=== PATIENT | male | born 1945 | race African-American/Black ===

== ENCOUNTER 2017-03-11 18:36 | Inpatient (IN) | payer MEDICARE, MEDICAID ==
[~2017-03-11] VITALS: Ht 165.1 cm; Wt 90.3 kg
[~2017-03-11 18:36] MED LIST: ALLO100T PO; ASPI-1159 PO; ATOR20TA65 PO; CARV6.2548 PO; COLC0.6T66 PO; DILT60TA35 PO; DOCU-150 PO; FURO-152 PO; P20 PO; WARF4TAB40 PO
[2017-03-11 20:11] LABS: BASOPHILS % 1.3 % (0.0-2.0); EOSINOPHILS % 4.2 % (0.0-5.0); LYMPHOCYTES % 20.8 % (20.0-50.0); MEAN CORPUSCULAR HEMOGLOBIN 23.2 pg (28.0-32.0); MEAN PLATELET VOLUME 7.3 fl (7.4-10.4); MONOCYTES % 14.7 % (2.0-8.0); PLATELET 263 x1000/uL (130-400); RED BLOOD CELL COUNT 2.57 mill/uL (4.7-6.1); RED CELL DISTRIBUTION WIDTH 22.2 % (11.6-14.6)
[2017-03-11 20:21] LABS: HEMATOCRIT. 19.3 % (42.0-52.0)
[2017-03-11 20:23] LABS: CARBON DIOXIDE 29 mEq/L (21-32); CHLORIDE 105 mEq/L (98-107); TROPONIN I < 0.02 ng/mL (0.00-0.04)
[2017-03-11 20:32] LABS: INR 1.4; PARTIAL THROMBOPLASTIN TIME 32.1 sec (24.0-34.0); PROTHROMBIN TIME 14.4 sec
[2017-03-11 21:16] LABS: PLATELET ESTIMATE NORMAL
[2017-03-11 21:52] LABS: CLARITY URINE CLEAR (CLEAR); COLOR URINE YELLOW (YELLOW); KETONES URINE NEGATIVE (NEGATIVE); LEUKOCYTE ESTERASE URINE NEGATIVE (NEGATIVE); NITRITE URINE NEGATIVE (NEGATIVE); OCCULT BLOOD URINE NEGATIVE (NEGATIVE); PROTEIN URINE NEGATIVE (NEGATIVE); SPECIFIC GRAVITY URINE 1.019 (1.005-1.030)
[2017-03-12] MEDS ORDERED: DILTIAZEM HCL 60MG TABLET PO SCH (02:00)
[2017-03-12] MEDS: IPRATROPIUM/ALBUTEROL 0.5-3(2.5)MG/3ML NEB HHN PRN (03:13)
[2017-03-12] MEDS ORDERED: IPRATROPIUM/ALBUTEROL 0.5-3(2.5)MG/3ML NEB HHN SCH (06:00)
[2017-03-12] MEDS: ALLOPURINOL 100 MG TABLET PO SCH ×2 (08:25→16:09)
[2017-03-12] MEDS: FUROSEMIDE 20MG TABLET PO SCH (08:25)
[2017-03-12] MEDS: DILTIAZEM HCL 90MG TABLET PO SCH ×3 (08:26→21:00)
[2017-03-12] MEDS: COLCHICINE 0.6MG TABLET PO SCH (08:26)
[2017-03-12] MEDS: CARVEDILOL 6.25 MG TABLET PO SCH ×2 (08:26→21:40)
[2017-03-12] MEDS: IPRATROPIUM/ALBUTEROL 0.5-3(2.5)MG/3ML NEB HHN SCH ×3 (08:32→20:06)
[2017-03-12] MEDS ORDERED: FUROSEMIDE 20MG TABLET PO NR (09:45)
[2017-03-12] MEDS: GUAIFENESIN-DM 200MG-20MG/10ML UDC PO PRN ×2 (11:09→17:57)
[2017-03-12 16:25] LABS: HEMATOCRIT 24.4 % (42.0-52.0); HEMOGLOBIN 7.6 g/dL (14.0-18.0); MEAN CORPUSCULAR VOLUME 76.9 fL (80.0-94.0); PLATELET 277 x1000/uL (130-400); RED BLOOD CELL COUNT 3.18 mill/uL (4.7-6.1); RED CELL DISTRIBUTION WIDTH 20.5 % (11.6-14.6)
[2017-03-12] MEDS ORDERED: LACTULOSE 20G/30ML UDC PO PRN (21:00)
[2017-03-12] MEDS: ATORVASTATIN CALCIUM 20MG TABLET PO SCH (21:40)
[2017-03-12] MEDS: DOCUSATE SODIUM 250MG CAPSULE PO SCH (21:40)
[2017-03-12 23:28] LABS: BASOPHILS % 0.8 % (0.0-2.0); EOSINOPHILS % 4.4 % (0.0-5.0); HEMATOCRIT. 28.3 % (42.0-52.0); HEMOGLOBIN. 8.9 g/dL (14.0-18.0); LYMPHOCYTES % 13.3 % (20.0-50.0); MEAN CORPUSCULAR HEMOGLOBIN 24.6 pg (28.0-32.0); MEAN CORPUSCULAR VOLUME 78.1 fL (80.0-94.0); MEAN PLATELET VOLUME 8.1 fl (7.4-10.4); MONOCYTES % 14.3 % (2.0-8.0); NEUTROPHILS % 67.2 % (40.0-76.0); PLATELET 261 x1000/uL (130-400); RED BLOOD CELL COUNT 3.62 mill/uL (4.7-6.1)
[2017-03-13] MEDS: ACETAMINOPHEN 325MG TABLET PO PRN (00:46)
[2017-03-13] MEDS: IPRATROPIUM/ALBUTEROL 0.5-3(2.5)MG/3ML NEB HHN SCH ×4 (01:28→20:45)
[2017-03-13] MEDS: DILTIAZEM HCL 90MG TABLET PO SCH ×4 (02:42→21:00)
[2017-03-13 06:54] LABS: BASOPHILS % 0.7 % (0.0-2.0); EOSINOPHILS % 3.9 % (0.0-5.0); HEMATOCRIT. 26.3 % (42.0-52.0); HEMOGLOBIN. 8.4 g/dL (14.0-18.0); LYMPHOCYTES % 15.4 % (20.0-50.0); MEAN CORPUSCULAR HEMOGLOBIN 24.8 pg (28.0-32.0); MEAN CORPUSCULAR VOLUME 77.4 fL (80.0-94.0); MEAN PLATELET VOLUME 8.4 fl (7.4-10.4); MONOCYTES % 13.6 % (2.0-8.0); NEUTROPHILS % 66.4 % (40.0-76.0); PLATELET 254 x1000/uL (130-400); RED BLOOD CELL COUNT 3.39 mill/uL (4.7-6.1); RED CELL DISTRIBUTION WIDTH 20.5 % (11.6-14.6)
[2017-03-13 06:59] LABS: CARBON DIOXIDE 27 mEq/L (21-32); CHLORIDE 106 mEq/L (98-107)
[2017-03-13] MEDS: COLCHICINE 0.6MG TABLET PO SCH (08:54)
[2017-03-13] MEDS: ALLOPURINOL 100 MG TABLET PO SCH ×2 (08:54→16:36)
[2017-03-13] MEDS: FUROSEMIDE 20MG TABLET PO SCH (08:54)
[2017-03-13] MEDS: CARVEDILOL 6.25 MG TABLET PO SCH ×2 (08:54→21:28)
[2017-03-13 08:55] LABS: INR 1.3; PROTHROMBIN TIME 13.4 sec
[2017-03-13] MEDS: IPRATROPIUM/ALBUTEROL 0.5-3(2.5)MG/3ML NEB HHN PRN (17:25)
[2017-03-13] MEDS ORDERED: SORBITOL 70% SOLN 30ML PO NR (21:00)
[2017-03-13] MEDS: ATORVASTATIN CALCIUM 20MG TABLET PO SCH (21:28)
[2017-03-13] MEDS: DOCUSATE SODIUM 250MG CAPSULE PO SCH (21:28)
[2017-03-14] MEDS: IPRATROPIUM/ALBUTEROL 0.5-3(2.5)MG/3ML NEB HHN SCH ×4 (02:12→20:19)
[2017-03-14] MEDS: DILTIAZEM HCL 90MG TABLET PO SCH ×4 (03:05→20:45)
[2017-03-14 05:53] LABS: CHLORIDE 111 mEq/L (98-107)
[2017-03-14 05:57] LABS: CARBON DIOXIDE 27 mEq/L (21-32)
[2017-03-14] MEDS ORDERED: SORBITOL 70% SOLN 30ML PO NR (06:00)
[2017-03-14 07:21] LABS: EOSINOPHILS % 5.2 % (0.0-5.0); LYMPHOCYTES % 10.8 % (20.0-50.0); MEAN CORPUSCULAR HEMOGLOBIN 24.7 pg (28.0-32.0); MEAN CORPUSCULAR VOLUME 79.8 fL (80.0-94.0); MEAN PLATELET VOLUME 8.4 fl (7.4-10.4); MONOCYTES % 13.9 % (2.0-8.0); NEUTROPHILS % 69.1 % (40.0-76.0); PLATELET 257 x1000/uL (130-400); RED BLOOD CELL COUNT 3.64 mill/uL (4.7-6.1); RED CELL DISTRIBUTION WIDTH 20.6 % (11.6-14.6)
[2017-03-14] MEDS ORDERED: NA PHOS,M-B/NA PHOS,DI-BA ENEMA 118ML PR NR (08:00)
[2017-03-14] MEDS: CARVEDILOL 6.25 MG TABLET PO SCH ×2 (09:28→20:45)
[2017-03-14] MEDS: ALLOPURINOL 100 MG TABLET PO SCH ×2 (09:28→17:33)
[2017-03-14] MEDS: COLCHICINE 0.6MG TABLET PO SCH (09:28)
[2017-03-14] MEDS: FUROSEMIDE 20MG TABLET PO SCH (09:28)
[2017-03-14 09:47] LABS: BG BASE EXCESS -0.5 mmol/L (-2.0-2.0); BG CARBOXYHEMOGLOBIN 1.3 % (0.5-1.5); BG DEOXYHEMOGLOBIN 20.6 % (0.0-5.0); BG FRACTION INSPIRED OXYGEN 21; BG HCO3 ACT 24.4 mmol/L (22.0-26.0); BG METHEMOGLOBIN 0.3 % (0.0-1.5); BG OXYGEN SATURATION 79.1 % (92.0-98.5); BG OXYHEMOGLOBIN 77.8 % (94.0-97.0); BG PCO2 40.8 mmHg (35.0-45.0); BG PH 7.394 (7.350-7.450); BG PO2 45.5 mmHg (75.0-100.0); BG SAMPLE SITE RIGHT BRACHIAL; BG TOTAL HEMOGLOBIN 10.7 g/dL (12.0-18.0); BG VENT MODE ROOM AIR
[2017-03-14] MEDS ORDERED: LIDOCAINE HCL 1% 20ML VIAL (Pyxis) INJ ONE (10:26)
[2017-03-14] MEDS ORDERED: PROPOFOL 200MG/20ML VIAL IV ONE ×2 (10:26→10:55)
[2017-03-14] MEDS: IPRATROPIUM/ALBUTEROL 0.5-3(2.5)MG/3ML NEB HHN PRN (18:51)
[2017-03-14] MEDS: ATORVASTATIN CALCIUM 20MG TABLET PO SCH (20:45)
[2017-03-14] MEDS: DOCUSATE SODIUM 250MG CAPSULE PO SCH (20:45)
[2017-03-15] MEDS: ACETAMINOPHEN 325MG TABLET PO PRN (00:22)
[2017-03-15] MEDS: IPRATROPIUM/ALBUTEROL 0.5-3(2.5)MG/3ML NEB HHN SCH ×4 (01:55→20:13)
[2017-03-15] MEDS: DILTIAZEM HCL 90MG TABLET PO SCH ×4 (03:23→21:08)
[2017-03-15 06:29] LABS: BASOPHILS % 0.9 % (0.0-2.0); HEMATOCRIT. 26.7 % (42.0-52.0); HEMOGLOBIN. 8.5 g/dL (14.0-18.0); LYMPHOCYTES % 14.3 % (20.0-50.0); MEAN CORPUSCULAR HEMOGLOBIN 24.9 pg (28.0-32.0); MEAN CORPUSCULAR VOLUME 78.2 fL (80.0-94.0); MEAN PLATELET VOLUME 7.5 fl (7.4-10.4); MONOCYTES % 14.3 % (2.0-8.0); NEUTROPHILS % 63.5 % (40.0-76.0); PLATELET 226 x1000/uL (130-400); RED BLOOD CELL COUNT 3.42 mill/uL (4.7-6.1); RED CELL DISTRIBUTION WIDTH 20.5 % (11.6-14.6)
[2017-03-15] MEDS: IPRATROPIUM/ALBUTEROL 0.5-3(2.5)MG/3ML NEB HHN PRN (06:42)
[2017-03-15 06:46] LABS: CARBON DIOXIDE 27 mEq/L (21-32); CHLORIDE 112 mEq/L (98-107)
[2017-03-15] MEDS: COLCHICINE 0.6MG TABLET PO SCH (09:02)
[2017-03-15] MEDS: CARVEDILOL 6.25 MG TABLET PO SCH ×2 (09:02→21:05)
[2017-03-15] MEDS: FUROSEMIDE 20MG TABLET PO SCH (09:02)
[2017-03-15] MEDS: ALLOPURINOL 100 MG TABLET PO SCH ×2 (09:02→17:19)
[2017-03-15] MEDS: ENOXAPARIN 80MG/0.8ML SYR SUBCUT SCH ×2 (12:42→21:09)
[2017-03-15] MEDS ORDERED: WARFARIN SODIUM 4MG TABLET PO SCH (18:00)
[2017-03-15] MEDS: DOCUSATE SODIUM 250MG CAPSULE PO SCH (21:04)
[2017-03-15] MEDS: ATORVASTATIN CALCIUM 20MG TABLET PO SCH (21:04)
[2017-03-16] MEDS: IPRATROPIUM/ALBUTEROL 0.5-3(2.5)MG/3ML NEB HHN SCH ×4 (02:11→20:19)
[2017-03-16] MEDS: DILTIAZEM HCL 90MG TABLET PO SCH ×4 (03:22→20:46)
[2017-03-16] MEDS: GUAIFENESIN-DM 200MG-20MG/10ML UDC PO PRN (06:13)
[2017-03-16 06:41] LABS: INR 1.3; PROTHROMBIN TIME 13.2 sec
[2017-03-16 07:03] LABS: BASOPHILS % 1.1 % (0.0-2.0); HEMATOCRIT. 27.8 % (42.0-52.0); HEMOGLOBIN. 8.6 g/dL (14.0-18.0); LYMPHOCYTES % 12.8 % (20.0-50.0); MEAN CORPUSCULAR HEMOGLOBIN 24.5 pg (28.0-32.0); MEAN CORPUSCULAR VOLUME 78.7 fL (80.0-94.0); MEAN PLATELET VOLUME 8.3 fl (7.4-10.4); MONOCYTES % 14.5 % (2.0-8.0); NEUTROPHILS % 64.6 % (40.0-76.0); PLATELET 247 x1000/uL (130-400); RED BLOOD CELL COUNT 3.53 mill/uL (4.7-6.1); RED CELL DISTRIBUTION WIDTH 20.9 % (11.6-14.6)
[2017-03-16 07:05] LABS: CHLORIDE 110 mEq/L (98-107)
[2017-03-16 07:18] LABS: CARBON DIOXIDE 26 mEq/L (21-32)
[2017-03-16] MEDS: ALLOPURINOL 100 MG TABLET PO SCH ×2 (08:39→17:56)
[2017-03-16] MEDS: CARVEDILOL 6.25 MG TABLET PO SCH ×2 (08:40→20:46)
[2017-03-16] MEDS: FUROSEMIDE 20MG TABLET PO SCH (08:41)
[2017-03-16] MEDS: COLCHICINE 0.6MG TABLET PO SCH (08:41)
[2017-03-16] MEDS: ENOXAPARIN 80MG/0.8ML SYR SUBCUT SCH ×2 (08:42→20:47)
[2017-03-16] MEDS ORDERED: WARFARIN SODIUM 4MG TABLET PO SCH (18:00)
[2017-03-16] MEDS: DOCUSATE SODIUM 250MG CAPSULE PO SCH (20:46)
[2017-03-16] MEDS: ATORVASTATIN CALCIUM 20MG TABLET PO SCH (20:46)
[2017-03-17] MEDS: IPRATROPIUM/ALBUTEROL 0.5-3(2.5)MG/3ML NEB HHN SCH ×3 (00:21→14:48)
[2017-03-17] MEDS: DILTIAZEM HCL 90MG TABLET PO SCH ×4 (03:00→15:16)
[2017-03-17] MEDS: IPRATROPIUM/ALBUTEROL 0.5-3(2.5)MG/3ML NEB HHN PRN (04:04)
[2017-03-17] MEDS: ACETAMINOPHEN 325MG TABLET PO PRN (04:13)
[2017-03-17 06:39] LABS: INR 1.3; PROTHROMBIN TIME 13.2 sec
[2017-03-17] MEDS: FUROSEMIDE 20MG TABLET PO SCH (08:28)
[2017-03-17] MEDS: COLCHICINE 0.6MG TABLET PO SCH (08:28)
[2017-03-17] MEDS: ALLOPURINOL 100 MG TABLET PO SCH ×2 (08:29→15:15)
[2017-03-17] MEDS: CARVEDILOL 6.25 MG TABLET PO SCH (08:29)
[2017-03-17] MEDS: ENOXAPARIN 80MG/0.8ML SYR SUBCUT SCH (08:30)
[2017-03-17] MEDS ORDERED: WARFARIN SODIUM 5MG TABLET PO SCH (14:58)
[2017-03-17 16:08] VITALS: BP 116/66
== END 2017-03-17 17:20 | DRG 291 ==
LOC: ER 18:53 → 6WST 22:38 → EDBEDREQTM 22:41 → EDBEDREQ 22:41 → ENRESERV 22:49
PROVIDERS: ADMIT Internal Medicine; ATTEND Internal Medicine
PROC: 30233N1 Transfusion of Nonautologous Red Blood Cells into Peripheral Vein, Percutaneous Approach (ICD-10-PCS; 2017-03-12)
PROC: 0DBK8ZX Excision of Ascending Colon, Via Natural or Artificial Opening Endoscopic, Diagnostic (ICD-10-PCS; 2017-03-14)
PROC: 0DBN8ZZ Excision of Sigmoid Colon, Via Natural or Artificial Opening Endoscopic (ICD-10-PCS; 2017-03-14)
PROC: 0DB68ZX Excision of Stomach, Via Natural or Artificial Opening Endoscopic, Diagnostic (ICD-10-PCS; principal; 2017-03-14 10:00)
DX: I50.23 Acute on chronic systolic (congestive) heart failure (principal); J96.21 Acute and chronic respiratory failure with hypoxia; I42.9 Cardiomyopathy, unspecified; J44.1 Chronic obstructive pulmonary disease with (acute) exacerbation; D62 Acute posthemorrhagic anemia; D50.9 Iron deficiency anemia, unspecified; I48.91 Unspecified atrial fibrillation; D12.2 Benign neoplasm of ascending colon; D12.5 Benign neoplasm of sigmoid colon; E66.9 Obesity, unspecified; I11.0 Hypertensive heart disease with heart failure; I27.2 Other secondary pulmonary hypertension; I48.2 Chronic atrial fibrillation; K29.60 Other gastritis without bleeding; K43.9 Ventral hernia without obstruction or gangrene; K44.9 Diaphragmatic hernia without obstruction or gangrene; K57.30 Diverticulosis of large intestine without perforation or abscess without bleeding; K64.8 Other hemorrhoids; M19.90 Unspecified osteoarthritis, unspecified site; M54.5 Low back pain; G89.29 Other chronic pain; Z79.82 Long term (current) use of aspirin; Z88.0 Allergy status to penicillin; Z79.01 Long term (current) use of anticoagulants; Z82.49 Family history of ischemic heart disease and other diseases of the circulatory system; Z95.2 Presence of prosthetic heart valve; Z99.81 Dependence on supplemental oxygen; Z79.899 Other long term (current) drug therapy; Z68.33 Body mass index [BMI] 33.0-33.9, adult
CPT/HCPCS: 36415; 36430; 36600; 71010; 74000; 80048; 80053; 81003; 82270; 82375; 82805; 83735; 83880; 84484; 84550; 85025; 85027; 85610; 85730; 86850; 86900; 86920; 88305; 88312; 88313; 93005; 93306; 93970; 94640; 99285; J1650; J2704; J3490; J7050; J7620; P9016

== ENCOUNTER 2018-01-13 22:54 | Inpatient (IN) | payer MEDICARE, MEDICAID ==
[~2018-01-13] VITALS: Ht 165.1 cm; Wt 99.1 kg
[2018-01-13] MEDS ORDERED: ALBUTEROL (0.083%) 2.5MG/3ML NEB HHN STA (23:24)
[2018-01-13] MEDS ORDERED: FUROSEMIDE 40MG/4ML VIAL IV STA (23:24)
[2018-01-13] MEDS ORDERED: NITROGLYCERIN OINT 1GM/INCH UDPKT TD STA (23:24)
[2018-01-13] MEDS ORDERED: METHYLPREDNISOLONE SOD SUCC 125 MG/2 ML VIAL IV STA (23:24)
[2018-01-13] MEDS ORDERED: IPRATROPIUM BROMIDE (0.02%) 0.5MG/2.5ML NEB HHN STA (23:24)
[2018-01-13 23:57] LABS: BASOPHILS % 0.3 % (0.0-2.0); HEMATOCRIT. 29.7 % (42.0-52.0); LYMPHOCYTES % 7.5 % (20.0-50.0); MEAN CORPUSCULAR HEMOGLOBIN 24.6 pg (28.0-32.0); MEAN CORPUSCULAR VOLUME 80.8 fL (80.0-94.0); MEAN PLATELET VOLUME 8.2 fl (7.4-10.4); MONOCYTES % 10.2 % (2.0-8.0); PLATELET 251 x1000/uL (130-400); RED BLOOD CELL COUNT 3.68 mill/uL (4.7-6.1); RED CELL DISTRIBUTION WIDTH 19.5 % (11.6-14.6)
[2018-01-14 00:02] LABS: CHLORIDE 107 mEq/L (98-107)
[2018-01-14 00:04] LABS: INR 1.6
[2018-01-14 08:00] VITALS: BP 165/71
[2018-01-14] MEDS ORDERED: WARF3TAB28 MT (08:48)
[2018-01-14] MEDS ORDERED: PROT40 MT (08:48)
[2018-01-14] MEDS ORDERED: LATA2.5D2 EACHEYE (08:48)
[2018-01-14] MEDS ORDERED: POTA10CA42 PO (08:48)
[2018-01-14] MEDS ORDERED: FURO-151 MT (08:48)
[2018-01-14] MEDS ORDERED: MAGN296S49 PO (08:48)
[2018-01-14] MEDS ORDERED: ATOR10TA69 MT (08:48)
[2018-01-14] MEDS ORDERED: MAGNESIUM CITRATE 300ML SOLUTION PO PRN (09:00)
[2018-01-14 09:04] VITALS: BP 165/71
[2018-01-14] MEDS: CARVEDILOL 6.25 MG TABLET PO SCH ×2 (09:41→21:47)
[2018-01-14] MEDS: ALLOPURINOL 100 MG TABLET PO SCH ×2 (09:41→17:07)
[2018-01-14] MEDS: PANTOPRAZOLE 40MG DR TABLET PO SCH (09:42)
[2018-01-14] MEDS: DOCUSATE SODIUM 100MG CAPSULE PO SCH (09:42)
[2018-01-14] MEDS: PREDNISONE 20MG TABLET PO SCH (09:42)
[2018-01-14] MEDS ORDERED: FUROSEMIDE 40MG/4ML VIAL IVP SCH (10:00)
[2018-01-14 12:00] VITALS: BP 130/81
[2018-01-14] MEDS: DILTIAZEM HCL 90MG TABLET PO SCH ×3 (12:40→23:48)
[2018-01-14] MEDS: IPRATROPIUM/ALBUTEROL 0.5-3(2.5)MG/3ML NEB HHN SCH ×2 (13:56→20:39)
[2018-01-14 16:00] VITALS: BP 122/78
[2018-01-14] MEDS ORDERED: POTASSIUM CHLORIDE 8 MEQ TABLET.SA PO SCH (17:00)
[2018-01-14] MEDS: WARFARIN SODIUM 5MG TABLET PO SCH (17:07)
[2018-01-14 20:00] VITALS: BP 127/67
[2018-01-14 20:18] LABS: CHLORIDE 104 mEq/L (98-107)
[2018-01-14] MEDS: ATORVASTATIN CALCIUM 10MG TABLET PO SCH (21:47)
[2018-01-14] MEDS: LATANOPROST 0.005% OPHTH DROPS 2.5ML EACHEYE SCH (21:47)
[2018-01-14 23:21] LABS: CLARITY URINE CLEAR (CLEAR); COLOR URINE YELLOW (YELLOW); KETONES URINE NEGATIVE (NEGATIVE); LEUKOCYTE ESTERASE URINE NEGATIVE (NEGATIVE); NITRITE URINE NEGATIVE (NEGATIVE); OCCULT BLOOD URINE TRACE (NEGATIVE); PROTEIN URINE NEGATIVE (NEGATIVE); SPECIFIC GRAVITY URINE 1.021 (1.005-1.030); UROBILINOGEN URINE 0.2 E.U./dL (0.2-1.0)
[2018-01-15] VITALS: BP 123/67
[2018-01-15] MEDS: IPRATROPIUM/ALBUTEROL 0.5-3(2.5)MG/3ML NEB HHN SCH ×5 (02:15→20:05)
[2018-01-15 04:00] VITALS: BP 115/65
[2018-01-15] MEDS: DILTIAZEM HCL 90MG TABLET PO SCH ×3 (05:43→17:21)
[2018-01-15] MEDS: PANTOPRAZOLE 40MG DR TABLET PO SCH (05:45)
[2018-01-15 07:02] LABS: HEMATOCRIT. 27.6 % (42.0-52.0); HEMOGLOBIN. 8.4 g/dL (14.0-18.0); MEAN CORPUSCULAR HEMOGLOBIN 24.3 pg (28.0-32.0); MEAN CORPUSCULAR VOLUME 80.3 fL (80.0-94.0); MEAN PLATELET VOLUME 8.9 fl (7.4-10.4); PLATELET 246 x1000/uL (130-400); RED BLOOD CELL COUNT 3.44 mill/uL (4.7-6.1); RED CELL DISTRIBUTION WIDTH 19.9 % (11.6-14.6)
[2018-01-15 07:19] LABS: INR 1.9; PROTHROMBIN TIME 19.4 sec (9.4-11.6)
[2018-01-15 07:32] LABS: CHLORIDE 106 mEq/L (98-107)
[2018-01-15 08:00] VITALS: BP 134/82
[2018-01-15] MEDS: ALLOPURINOL 100 MG TABLET PO SCH ×2 (08:31→17:21)
[2018-01-15] MEDS: PREDNISONE 20MG TABLET PO SCH (08:31)
[2018-01-15] MEDS: DOCUSATE SODIUM 100MG CAPSULE PO SCH (08:32)
[2018-01-15] MEDS: CARVEDILOL 6.25 MG TABLET PO SCH ×2 (08:32→21:01)
[2018-01-15] MEDS ORDERED: FUROSEMIDE 40MG/4ML VIAL IVP SCH (10:00)
[2018-01-15 10:32] LABS: PLATELET ESTIMATE NORMAL
[2018-01-15 12:00] VITALS: BP 116/61
[2018-01-15] MEDS ORDERED: IPRATROPIUM/ALBUTEROL 0.5-3(2.5)MG/3ML NEB HHN PRN (15:45)
[2018-01-15 16:00] VITALS: BP 126/76
[2018-01-15] MEDS: WARFARIN SODIUM 5MG TABLET PO SCH (17:21)
[2018-01-15 20:00] VITALS: BP 117/61
[2018-01-15] MEDS: ATORVASTATIN CALCIUM 10MG TABLET PO SCH (21:00)
[2018-01-15] MEDS: LATANOPROST 0.005% OPHTH DROPS 2.5ML EACHEYE SCH (21:01)
[2018-01-16] VITALS: BP 127/79
[2018-01-16] MEDS: DILTIAZEM HCL 90MG TABLET PO SCH ×5 (00:46→22:40)
[2018-01-16 04:00] VITALS: BP 122/65
[2018-01-16] MEDS: IPRATROPIUM/ALBUTEROL 0.5-3(2.5)MG/3ML NEB HHN SCH ×6 (04:00→21:41)
[2018-01-16] MEDS: PANTOPRAZOLE 40MG DR TABLET PO SCH (06:01)
[2018-01-16 06:35] LABS: INR 2.3; PROTHROMBIN TIME 24.1 sec (9.4-11.6)
[2018-01-16 06:41] LABS: BASOPHILS % 0.2 % (0.0-2.0); EOSINOPHILS % 0.1 % (0.0-5.0); HEMATOCRIT. 27.2 % (42.0-52.0); HEMOGLOBIN. 8.4 g/dL (14.0-18.0); LYMPHOCYTES % 8.6 % (20.0-50.0); MEAN CORPUSCULAR HEMOGLOBIN 24.6 pg (28.0-32.0); MEAN CORPUSCULAR VOLUME 79.8 fL (80.0-94.0); MEAN PLATELET VOLUME 8.6 fl (7.4-10.4); NEUTROPHILS % 80.1 % (40.0-76.0); PLATELET 239 x1000/uL (130-400); RED BLOOD CELL COUNT 3.41 mill/uL (4.7-6.1)
[2018-01-16] MEDS: PREDNISONE 10MG TABLET PO SCH (06:51)
[2018-01-16 07:07] LABS: CHLORIDE 106 mEq/L (98-107)
[2018-01-16] MEDS ORDERED: ACETAMINOPHEN 325MG TABLET PO PRN (07:45)
[2018-01-16 08:00] VITALS: BP 117/58
[2018-01-16] MEDS ORDERED: FUROSEMIDE 40MG/4ML VIAL IVP SCH (08:00)
[2018-01-16 08:23] LABS: BG CARBOXYHEMOGLOBIN 1.3 % (0.5-1.5); BG FRACTION INSPIRED OXYGEN 21; BG HCO3 ACT 31.3 mmol/L (22.0-26.0); BG METHEMOGLOBIN 0.3 % (0.0-1.5); BG OXYHEMOGLOBIN 95.4 % (94.0-97.0); BG PH 7.365 (7.350-7.450); BG PO2 89.3 mmHg (75.0-100.0); BG SAMPLE SITE LEFT BRACHIAL; BG TOTAL HEMOGLOBIN 9.6 g/dL (12.0-18.0); BG VENT MODE ROOM AIR
[2018-01-16] MEDS: DOCUSATE SODIUM 100MG CAPSULE PO SCH (08:28)
[2018-01-16] MEDS: ALLOPURINOL 100 MG TABLET PO SCH ×2 (08:28→17:26)
[2018-01-16] MEDS: CARVEDILOL 6.25 MG TABLET PO SCH ×2 (08:28→22:39)
[2018-01-16] MEDS: FUROSEMIDE 40MG/4ML VIAL IVP SCH ×2 (08:28→17:27)
[2018-01-16 12:00] VITALS: BP 112/65
[2018-01-16] MEDS: METOLAZONE 2.5MG TABLET PO SCH ×2 (12:04→17:26)
[2018-01-16] MEDS: WARFARIN SODIUM 5MG TABLET PO SCH (17:26)
[2018-01-16 20:00] VITALS: BP 185/87
[2018-01-16] MEDS: LATANOPROST 0.005% OPHTH DROPS 2.5ML EACHEYE SCH (22:38)
[2018-01-16] MEDS: ATORVASTATIN CALCIUM 10MG TABLET PO SCH (22:39)
[2018-01-17] MEDS: IPRATROPIUM/ALBUTEROL 0.5-3(2.5)MG/3ML NEB HHN SCH ×7 (00:50→20:28)
[2018-01-17 04:00] VITALS: BP 114/62
[2018-01-17] MEDS: PANTOPRAZOLE 40MG DR TABLET PO SCH (05:56)
[2018-01-17] MEDS: DILTIAZEM HCL 90MG TABLET PO SCH ×3 (05:57→17:56)
[2018-01-17 07:31] LABS: INR 2.7; PROTHROMBIN TIME 28.5 sec (9.4-11.6)
[2018-01-17 07:39] LABS: BASOPHILS % 0.1 % (0.0-2.0); EOSINOPHILS % 0.8 % (0.0-5.0); HEMATOCRIT. 28.3 % (42.0-52.0); HEMOGLOBIN. 8.7 g/dL (14.0-18.0); LYMPHOCYTES % 14.4 % (20.0-50.0); MEAN CORPUSCULAR HEMOGLOBIN 24.6 pg (28.0-32.0); MEAN CORPUSCULAR VOLUME 79.8 fL (80.0-94.0); MONOCYTES % 14.6 % (2.0-8.0); NEUTROPHILS % 70.1 % (40.0-76.0); PLATELET 239 x1000/uL (130-400); RED BLOOD CELL COUNT 3.55 mill/uL (4.7-6.1); RED CELL DISTRIBUTION WIDTH 19.7 % (11.6-14.6)
[2018-01-17 08:00] VITALS: BP 118/76
[2018-01-17 08:14] LABS: CHLORIDE 101 mEq/L (98-107)
[2018-01-17] MEDS: ALLOPURINOL 100 MG TABLET PO SCH ×2 (08:41→17:55)
[2018-01-17] MEDS: FUROSEMIDE 40MG/4ML VIAL IVP SCH ×2 (08:41→17:55)
[2018-01-17] MEDS: METOLAZONE 2.5MG TABLET PO SCH ×2 (08:41→17:56)
[2018-01-17] MEDS: DOCUSATE SODIUM 100MG CAPSULE PO SCH (08:41)
[2018-01-17] MEDS: PREDNISONE 10MG TABLET PO SCH (08:41)
[2018-01-17] MEDS: CARVEDILOL 6.25 MG TABLET PO SCH ×2 (08:42→20:58)
[2018-01-17 12:00] VITALS: BP 119/66
[2018-01-17 16:00] VITALS: BP 119/75
[2018-01-17] MEDS: WARFARIN SODIUM 5MG TABLET PO SCH (17:55)
[2018-01-17 20:00] VITALS: BP 121/68
[2018-01-17] MEDS: ATORVASTATIN CALCIUM 10MG TABLET PO SCH (20:58)
[2018-01-17] MEDS: LATANOPROST 0.005% OPHTH DROPS 2.5ML EACHEYE SCH (20:59)
[2018-01-17] MEDS: GUAIFENESIN-DM 200MG-20MG/10ML UDC PO PRN (20:59)
[2018-01-18] VITALS: BP 114/64
[2018-01-18] MEDS: IPRATROPIUM/ALBUTEROL 0.5-3(2.5)MG/3ML NEB HHN SCH ×5 (00:11→20:57)
[2018-01-18] MEDS: DILTIAZEM HCL 90MG TABLET PO SCH ×4 (00:18→19:02)
[2018-01-18 04:00] VITALS: BP_SYST 113; BP_SYST 117; BP_DIAS 69; BP_DIAS 75
[2018-01-18] MEDS: METOLAZONE 2.5MG TABLET PO SCH ×2 (06:18→17:15)
[2018-01-18] MEDS: FUROSEMIDE 40MG/4ML VIAL IVP SCH (06:18)
[2018-01-18] MEDS: PANTOPRAZOLE 40MG DR TABLET PO SCH (06:18)
[2018-01-18] MEDS: PREDNISONE 10MG TABLET PO SCH (06:19)
[2018-01-18 07:08] LABS: INR 3.5; PROTHROMBIN TIME 36.8 sec (9.4-11.6)
[2018-01-18 07:12] LABS: BASOPHILS % 0.2 % (0.0-2.0); EOSINOPHILS % 1.2 % (0.0-5.0); HEMATOCRIT. 27.5 % (42.0-52.0); HEMOGLOBIN. 8.6 g/dL (14.0-18.0); LYMPHOCYTES % 12.8 % (20.0-50.0); MEAN CORPUSCULAR HEMOGLOBIN 24.7 pg (28.0-32.0); MEAN CORPUSCULAR VOLUME 79.2 fL (80.0-94.0); MEAN PLATELET VOLUME 9.3 fl (7.4-10.4); MONOCYTES % 13.9 % (2.0-8.0); NEUTROPHILS % 71.9 % (40.0-76.0); PLATELET 235 x1000/uL (130-400); RED BLOOD CELL COUNT 3.48 mill/uL (4.7-6.1); RED CELL DISTRIBUTION WIDTH 19.9 % (11.6-14.6)
[2018-01-18 07:45] LABS: CHLORIDE 98 mEq/L (98-107)
[2018-01-18 08:00] VITALS: BP 117/72
[2018-01-18] MEDS: ALLOPURINOL 100 MG TABLET PO SCH ×2 (08:51→17:00)
[2018-01-18] MEDS: DOCUSATE SODIUM 100MG CAPSULE PO SCH (08:51)
[2018-01-18] MEDS: CARVEDILOL 6.25 MG TABLET PO SCH ×2 (08:52→21:26)
[2018-01-18 12:00] VITALS: BP 112/73
[2018-01-18 16:00] VITALS: BP 126/77
[2018-01-18 20:00] VITALS: BP 116/57
[2018-01-18] MEDS: GUAIFENESIN-DM 200MG-20MG/10ML UDC PO PRN (21:25)
[2018-01-18] MEDS: LATANOPROST 0.005% OPHTH DROPS 2.5ML EACHEYE SCH (21:26)
[2018-01-18] MEDS: ATORVASTATIN CALCIUM 10MG TABLET PO SCH (21:26)
[2018-01-19] VITALS: BP 118/67
[2018-01-19] MEDS: DILTIAZEM HCL 90MG TABLET PO SCH ×4 (00:01→17:15)
[2018-01-19] MEDS: IPRATROPIUM/ALBUTEROL 0.5-3(2.5)MG/3ML NEB HHN SCH ×5 (00:56→17:12)
[2018-01-19 04:00] VITALS: BP 115/55
[2018-01-19] MEDS: PREDNISONE 10MG TABLET PO SCH (06:18)
[2018-01-19] MEDS: PANTOPRAZOLE 40MG DR TABLET PO SCH (06:18)
[2018-01-19 06:50] LABS: INR 3.4; PROTHROMBIN TIME 35.8 sec (9.4-11.6)
[2018-01-19 08:00] VITALS: BP 116/67
[2018-01-19] MEDS: ALLOPURINOL 100 MG TABLET PO SCH ×2 (08:50→17:12)
[2018-01-19] MEDS: DOCUSATE SODIUM 100MG CAPSULE PO SCH (08:50)
[2018-01-19] MEDS: CARVEDILOL 6.25 MG TABLET PO SCH (08:50)
[2018-01-19 10:21] LABS: BASOPHILS % 0.2 % (0.0-2.0); EOSINOPHILS % 1.8 % (0.0-5.0); HEMATOCRIT. 27.7 % (42.0-52.0); HEMOGLOBIN. 8.5 g/dL (14.0-18.0); LYMPHOCYTES % 11.5 % (20.0-50.0); MEAN CORPUSCULAR HEMOGLOBIN 24.4 pg (28.0-32.0); MEAN CORPUSCULAR VOLUME 79.3 fL (80.0-94.0); MEAN PLATELET VOLUME 9.5 fl (7.4-10.4); MONOCYTES % 11.6 % (2.0-8.0); NEUTROPHILS % 74.9 % (40.0-76.0); PLATELET 236 x1000/uL (130-400); RED CELL DISTRIBUTION WIDTH 19.5 % (11.6-14.6)
[2018-01-19 10:40] LABS: CHLORIDE 98 mEq/L (98-107)
[2018-01-19 12:00] VITALS: BP 128/71
[2018-01-19 13:31] LABS: INR 3.6
[2018-01-19 16:00] VITALS: BP 130/65
[2018-01-19 16:39] VITALS: BP 130/65
[2018-01-19] MEDS ORDERED: WARFARIN SODIUM 3MG TABLET PO SCH (18:00)
[2018-01-20] MEDS ORDERED: FAMOTIDINE 20MG TABLET PO SCH (09:00)
== END 2018-01-19 18:05 | DRG 291 ==
LOC: ER 23:20 → 5WST 01-14 00:38 → EDBEDREQ 01-14 00:49 → ENRESERV 01-14 07:04
PROVIDERS: ADMIT Internal Medicine; ATTEND Internal Medicine
DX: I13.0 Hypertensive heart and chronic kidney disease with heart failure and stage 1 through stage 4 chronic kidney disease, or unspecified chronic kidney disease (principal); I50.23 Acute on chronic systolic (congestive) heart failure; J96.20 Acute and chronic respiratory failure, unspecified whether with hypoxia or hypercapnia; N17.9 Acute kidney failure, unspecified; J84.9 Interstitial pulmonary disease, unspecified; J44.1 Chronic obstructive pulmonary disease with (acute) exacerbation; E87.5 Hyperkalemia; I48.0 Paroxysmal atrial fibrillation; Z95.2 Presence of prosthetic heart valve; E66.9 Obesity, unspecified; N18.9 Chronic kidney disease, unspecified; K43.9 Ventral hernia without obstruction or gangrene; D64.9 Anemia, unspecified; D72.829 Elevated white blood cell count, unspecified; I25.10 Atherosclerotic heart disease of native coronary artery without angina pectoris; N28.1 Cyst of kidney, acquired; Z87.891 Personal history of nicotine dependence; Z95.1 Presence of aortocoronary bypass graft; Z99.81 Dependence on supplemental oxygen; Z88.0 Allergy status to penicillin; Z79.899 Other long term (current) drug therapy; Z79.01 Long term (current) use of anticoagulants; Z79.82 Long term (current) use of aspirin; Z68.36 Body mass index [BMI] 36.0-36.9, adult
CPT/HCPCS: 36415; 36600; 71045; 76770; 80048; 80053; 81003; 82270; 82375; 82805; 82962; 83605; 83690; 83735; 83880; 84484; 85025; 85610; 87040; 87070; 87086; 93005; 94640; 96374; 96375; 97162; 99285; J1940; J2930; J7512; J7611; J7620

== ENCOUNTER 2018-06-01 13:13 | Inpatient (IN) | payer MEDICARE, MEDICAID ==
[~2018-06-01] VITALS: Ht 165.1 cm; Wt 90.1 kg
[2018-06-01 14:53] LABS: INR 2.6; PROTHROMBIN TIME 25.4 sec (9.1-11.1)
[2018-06-01 14:58] LABS: BASOPHILS % 1.4 % (0.0-2.0); EOSINOPHILS % 6.4 % (0.0-5.0); MEAN CORPUSCULAR HEMOGLOBIN 27.3 pg (28.0-32.0); MEAN CORPUSCULAR VOLUME 85.2 fL (80.0-94.0); MEAN PLATELET VOLUME 8.6 fl (7.4-10.4); MONOCYTES % 13.9 % (2.0-8.0); NEUTROPHILS % 61.3 % (40.0-76.0); PLATELET 379 x1000/uL (130-400); RED BLOOD CELL COUNT 2.58 mill/uL (4.7-6.1); RED CELL DISTRIBUTION WIDTH 19.5 % (11.6-14.6)
[2018-06-01 15:00] LABS: CHLORIDE 100 mEq/L (98-107)
[2018-06-01] MEDS ORDERED: PANTOPRAZOLE SODIUM 40 MG/VIAL IV ONE (15:30)
[2018-06-01] MEDS ORDERED: FUROSEMIDE 40MG/4ML VIAL IVP ONE (15:30)
[2018-06-01] MEDS ORDERED: CEFTRIAXONE 1 G PREMIX 50 ML IV ONE (15:45)
[2018-06-01] MEDS ORDERED: VANCOMYCIN 1 G PREMIX 200 ML IV SCH (15:45)
[2018-06-01] MEDS ORDERED: AZITHROMYCIN 500 MG in DEXT 5% WATER 250 ML IV SCH (15:45)
[2018-06-01] MEDS ORDERED: IPRATROPIUM BROMIDE (0.02%) 0.5MG/2.5ML NEB HHN STA (15:52)
[2018-06-01] MEDS ORDERED: ALBUTEROL (0.083%) 2.5MG/3ML NEB HHN STA (15:52)
[2018-06-01 16:13] LABS: BG BASE EXCESS 10.7 mmol/L (-2.0-2.0); BG DEOXYHEMOGLOBIN 8.6 % (0.0-5.0); BG FRACTION INSPIRED OXYGEN 28; BG HCO3 ACT 36.6 mmol/L (22.0-26.0); BG METHEMOGLOBIN 0.6 % (0.0-1.5); BG OXYGEN SATURATION 91.3 % (92.0-98.5); BG OXYHEMOGLOBIN 89.8 % (94.0-97.0); BG PCO2 59.6 mmHg (35.0-45.0); BG PH 7.406 (7.350-7.450); BG PO2 64.9 mmHg (75.0-100.0); BG SAMPLE SITE RIGHT RADIAL; BG TOTAL HEMOGLOBIN 7.5 g/dL (12.0-18.0); BG VENT MODE NASAL CANNULA
[2018-06-01 23:55] VITALS: BP 134/54
[2018-06-02] VITALS: BP 131/52
[2018-06-02] MEDS ORDERED: LACTULOSE 20G/30ML UDC PO PRN ×2 (03:30→04:00)
[2018-06-02] MEDS ORDERED: IPRATROPIUM/ALBUTEROL 0.5-3(2.5)MG/3ML NEB HHN SCH (03:30)
[2018-06-02 04:00] VITALS: BP 149/57
[2018-06-02] MEDS: DILTIAZEM HCL 60MG TABLET PO SCH ×3 (06:35→17:45)
[2018-06-02] MEDS ORDERED: VANCOMYCIN 1 G PREMIX 200 ML IV SCH (09:00)
[2018-06-02] MEDS ORDERED: VANCOMYCIN 1,750 MG in DEXT 5% WATER 500 ML IV SCH (09:00)
[2018-06-02] MEDS: FUROSEMIDE 40MG/4ML VIAL IVP SCH (09:39)
[2018-06-02] MEDS: CARVEDILOL 6.25 MG TABLET PO SCH ×2 (09:40→21:36)
[2018-06-02] MEDS: PANTOPRAZOLE SODIUM 40 MG/VIAL IV SCH (09:40)
[2018-06-02] MEDS: DOCUSATE SODIUM 250MG CAPSULE PO SCH (09:40)
[2018-06-02 10:20] LABS: CHLORIDE 99 mEq/L (98-107)
[2018-06-02 10:30] LABS: BASOPHILS % 1.2 % (0.0-2.0); EOSINOPHILS % 7.7 % (0.0-5.0); HEMATOCRIT. 27.8 % (42.0-52.0); HEMOGLOBIN. 9.1 g/dL (14.0-18.0); LYMPHOCYTES % 12.9 % (20.0-50.0); MEAN CORPUSCULAR HEMOGLOBIN 27.5 pg (28.0-32.0); MEAN CORPUSCULAR VOLUME 84.1 fL (80.0-94.0); MEAN PLATELET VOLUME 8.4 fl (7.4-10.4); MONOCYTES % 12.9 % (2.0-8.0); NEUTROPHILS % 65.3 % (40.0-76.0); PLATELET 385 x1000/uL (130-400); RED BLOOD CELL COUNT 3.31 mill/uL (4.7-6.1); RED CELL DISTRIBUTION WIDTH 18.3 % (11.6-14.6)
[2018-06-02 12:00] VITALS: BP 117/59
[2018-06-02 15:56] VITALS: BP 146/88
[2018-06-02] MEDS ORDERED: DIATR MEGLU/DIATRIZOATE SOLN 30ML PO NR (16:45)
[2018-06-02 17:45] LABS: HEMATOCRIT 24.9 % (42.0-52.0)
[2018-06-02 18:03] LABS: TOTAL IRON BINDING CAPACITY 236 ug/dL (250-450)
[2018-06-02 20:00] VITALS: BP 135/66
[2018-06-02] MEDS ORDERED: IOHEXOL-300 100 ML BOTTLE ONE (21:06)
[2018-06-02] MEDS: LATANOPROST 0.005% OPHTH DROPS 2.5ML BOTHEYE SCH (21:36)
[2018-06-03] VITALS (7 sets, daily range): BP systolic 122–136; BP diastolic 50–62
[2018-06-03] MEDS: DILTIAZEM HCL 60MG TABLET PO SCH ×5 (01:36→23:57)
[2018-06-03 06:53] LABS: INR 2.4; PROTHROMBIN TIME 23.8 sec (9.1-11.1)
[2018-06-03 07:02] LABS: BASOPHILS % 0.9 % (0.0-2.0); EOSINOPHILS % 7.1 % (0.0-5.0); HEMOGLOBIN. 7.9 g/dL (14.0-18.0); LYMPHOCYTES % 14.8 % (20.0-50.0); MEAN CORPUSCULAR HEMOGLOBIN 26.7 pg (28.0-32.0); MEAN CORPUSCULAR VOLUME 84.4 fL (80.0-94.0); MONOCYTES % 11.8 % (2.0-8.0); NEUTROPHILS % 65.4 % (40.0-76.0); PLATELET 344 x1000/uL (130-400); RED BLOOD CELL COUNT 2.96 mill/uL (4.7-6.1)
[2018-06-03 07:32] LABS: CHLORIDE 98 mEq/L (98-107)
[2018-06-03] MEDS: PANTOPRAZOLE SODIUM 40 MG/VIAL IV SCH (11:17)
[2018-06-03] MEDS: DOCUSATE SODIUM 250MG CAPSULE PO SCH (11:17)
[2018-06-03] MEDS: FUROSEMIDE 40MG/4ML VIAL IVP SCH (11:17)
[2018-06-03] MEDS: VANCOMYCIN 500 MG PREMIX 100 ML IV SCH ×2 (11:18→20:53)
[2018-06-03] MEDS: CARVEDILOL 6.25 MG TABLET PO SCH ×2 (11:18→20:53)
[2018-06-03] MEDS ORDERED: SORBITOL 70% SOLN 30ML PO NR (13:45)
[2018-06-03] MEDS ORDERED: IRON SUCROSE COMPLEX 100 MG/5 ML ML IV NR (17:00)
[2018-06-03] MEDS: LATANOPROST 0.005% OPHTH DROPS 2.5ML BOTHEYE SCH (20:54)
[2018-06-04 04:00] VITALS: BP 102/56
[2018-06-04] MEDS: DILTIAZEM HCL 60MG TABLET PO SCH ×3 (05:06→17:01)
[2018-06-04 07:12] LABS: PROTHROMBIN TIME 19.4 sec (9.1-11.1)
[2018-06-04 08:00] VITALS: BP 120/53
[2018-06-04] MEDS: CARVEDILOL 6.25 MG TABLET PO SCH (09:00)
[2018-06-04] MEDS: DOCUSATE SODIUM 250MG CAPSULE PO SCH (09:29)
[2018-06-04] MEDS: VANCOMYCIN 500 MG PREMIX 100 ML IV SCH ×2 (09:29→22:19)
[2018-06-04] MEDS: IRON SUCROSE COMPLEX 100 MG/5 ML ML IV SCH (09:30)
[2018-06-04] MEDS: PANTOPRAZOLE SODIUM 40 MG/VIAL IV SCH (09:30)
[2018-06-04] MEDS: FUROSEMIDE 40MG/4ML VIAL IVP SCH (09:30)
[2018-06-04 09:43] LABS: BASOPHILS % 0.9 % (0.0-2.0); EOSINOPHILS % 6.8 % (0.0-5.0); LYMPHOCYTES % 13.3 % (20.0-50.0); MEAN CORPUSCULAR HEMOGLOBIN 27.1 pg (28.0-32.0); MEAN CORPUSCULAR VOLUME 85.3 fL (80.0-94.0); MEAN PLATELET VOLUME 8.2 fl (7.4-10.4); PLATELET 359 x1000/uL (130-400); RED BLOOD CELL COUNT 2.94 mill/uL (4.7-6.1); RED CELL DISTRIBUTION WIDTH 18.6 % (11.6-14.6)
[2018-06-04 09:51] LABS: BG BASE EXCESS 11.7 mmol/L (-2.0-2.0); BG CARBOXYHEMOGLOBIN 0.8 % (0.5-1.5); BG DEOXYHEMOGLOBIN 5.7 % (0.0-5.0); BG FRACTION INSPIRED OXYGEN 28; BG HCO3 ACT 39.8 mmol/L (22.0-26.0); BG OXYGEN SATURATION 94.3 % (92.0-98.5); BG OXYHEMOGLOBIN 93.5 % (94.0-97.0); BG PCO2 80.2 mmHg (35.0-45.0); BG PH 7.314 (7.350-7.450); BG PO2 76.7 mmHg (75.0-100.0); BG SAMPLE SITE RIGHT RADIAL; BG TOTAL HEMOGLOBIN 8.5 g/dL (12.0-18.0); BG VENT MODE NASAL CANNULA
[2018-06-04 12:00] VITALS: BP 118/54
[2018-06-04 16:29] LABS: BG BASE EXCESS 9.3 mmol/L (-2.0-2.0); BG BILEVEL POS AIRWAY PRESSURE 15/5; BG HCO3 ACT 37.7 mmol/L (22.0-26.0); BG METHEMOGLOBIN 0.3 % (0.0-1.5); BG OXYHEMOGLOBIN 96.7 % (94.0-97.0); BG PCO2 80.8 mmHg (35.0-45.0); BG PH 7.287 (7.350-7.450); BG PO2 113.6 mmHg (75.0-100.0); BG SAMPLE SITE RIGHT RADIAL; BG TOTAL HEMOGLOBIN 8.7 g/dL (12.0-18.0); BG VENT MODE MASK - BIPAP; BG VENT RATE 18 set
[2018-06-04 20:00] VITALS: BP 124/58
[2018-06-04 20:59] LABS: BG BASE EXCESS 8.6 mmol/L (-2.0-2.0); BG BILEVEL POS AIRWAY PRESSURE 15/5; BG CARBOXYHEMOGLOBIN 0.7 % (0.5-1.5); BG DEOXYHEMOGLOBIN 1.9 % (0.0-5.0); BG FRACTION INSPIRED OXYGEN 50; BG HCO3 ACT 36.4 mmol/L (22.0-26.0); BG METHEMOGLOBIN 0.6 % (0.0-1.5); BG OXYGEN SATURATION 98.1 % (92.0-98.5); BG OXYHEMOGLOBIN 96.8 % (94.0-97.0); BG PCO2 73.2 mmHg (35.0-45.0); BG PH 7.315 (7.350-7.450); BG PO2 116.7 mmHg (75.0-100.0); BG SAMPLE SITE RIGHT RADIAL; BG TOTAL HEMOGLOBIN 9.3 g/dL (12.0-18.0); BG VENT MODE MASK - BIPAP; BG VENT RATE 18 set
[2018-06-04] MEDS ORDERED: CARVEDILOL 6.25 MG TABLET PO SCH (21:00)
[2018-06-04] MEDS: LATANOPROST 0.005% OPHTH DROPS 2.5ML BOTHEYE SCH (22:18)
[2018-06-05] VITALS (8 sets, daily range): BP systolic 109–142; BP diastolic 42–61
[2018-06-05] MEDS: DILTIAZEM HCL 60MG TABLET PO SCH ×3 (00:53→06:03)
[2018-06-05 06:58] LABS: INR 1.6; PROTHROMBIN TIME 16.4 sec (9.1-11.1)
[2018-06-05 07:16] LABS: EOSINOPHILS % 5.4 % (0.0-5.0); HEMATOCRIT. 23.5 % (42.0-52.0); HEMOGLOBIN. 7.4 g/dL (14.0-18.0); MEAN CORPUSCULAR HEMOGLOBIN 26.9 pg (28.0-32.0); MEAN CORPUSCULAR VOLUME 85.3 fL (80.0-94.0); MEAN PLATELET VOLUME 8.2 fl (7.4-10.4); MONOCYTES % 13.6 % (2.0-8.0); PLATELET 331 x1000/uL (130-400); RED BLOOD CELL COUNT 2.76 mill/uL (4.7-6.1); RED CELL DISTRIBUTION WIDTH 18.9 % (11.6-14.6)
[2018-06-05] MEDS: DOCUSATE SODIUM 250MG CAPSULE PO SCH (08:45)
[2018-06-05] MEDS: IRON SUCROSE COMPLEX 100 MG/5 ML ML IV SCH (08:45)
[2018-06-05] MEDS: PANTOPRAZOLE SODIUM 40 MG/VIAL IV SCH (08:45)
[2018-06-05] MEDS: FUROSEMIDE 40MG/4ML VIAL IVP SCH (08:45)
[2018-06-05] MEDS: VANCOMYCIN 500 MG PREMIX 100 ML IV SCH (08:46)
[2018-06-05] MEDS ORDERED: CARVEDILOL 3.125 MG TABLET PO SCH (09:00)
[2018-06-05 09:25] LABS: BG BASE EXCESS 10.8 mmol/L (-2.0-2.0); BG BILEVEL POS AIRWAY PRESSURE 15/5; BG CARBOXYHEMOGLOBIN 0.7 % (0.5-1.5); BG DEOXYHEMOGLOBIN 18.4 % (0.0-5.0); BG FRACTION INSPIRED OXYGEN 50; BG METHEMOGLOBIN 0.1 % (0.0-1.5); BG OXYGEN SATURATION 81.5 % (92.0-98.5); BG OXYHEMOGLOBIN 80.8 % (94.0-97.0); BG PCO2 94.8 mmHg (35.0-45.0); BG PH 7.243 (7.350-7.450); BG PO2 51.5 mmHg (75.0-100.0); BG SAMPLE SITE RIGHT RADIAL; BG VENT MODE MASK - BIPAP; BG VENT RATE 18 set
[2018-06-05] MEDS: DEXT 5%/0.45% NACL 1000ML 1,000 ML IV SCH (11:21)
[2018-06-05] MEDS: DILTIAZEM HCL 30MG TABLET PO SCH ×2 (12:00→17:00)
[2018-06-05 12:50] LABS: BG BASE EXCESS 4.2 mmol/L (-2.0-2.0); BG BILEVEL POS AIRWAY PRESSURE 20/5; BG CARBOXYHEMOGLOBIN 0.9 % (0.5-1.5); BG DEOXYHEMOGLOBIN 1.4 % (0.0-5.0); BG FRACTION INSPIRED OXYGEN 50; BG HCO3 ACT 30.8 mmol/L (22.0-26.0); BG METHEMOGLOBIN 0.4 % (0.0-1.5); BG OXYGEN SATURATION 98.6 % (92.0-98.5); BG OXYHEMOGLOBIN 97.3 % (94.0-97.0); BG PCO2 59.1 mmHg (35.0-45.0); BG PH 7.335 (7.350-7.450); BG PO2 125.6 mmHg (75.0-100.0); BG SAMPLE SITE LEFT BRACHIAL; BG TOTAL HEMOGLOBIN 8.2 g/dL (12.0-18.0); BG VENT MODE MASK - BIPAP
[2018-06-05 14:33] LABS: AMMONIA 46 uMol/L (<32)
[2018-06-05] MEDS: LATANOPROST 0.005% OPHTH DROPS 2.5ML BOTHEYE SCH (21:52)
[2018-06-06] VITALS (11 sets, daily range): BP systolic 101–143; BP diastolic 37–76
[2018-06-06] MEDS: IPRATROPIUM/ALBUTEROL 0.5-3(2.5)MG/3ML NEB HHN PRN (00:28)
[2018-06-06] MEDS: DILTIAZEM HCL 30MG TABLET PO SCH ×4 (02:33→18:11)
[2018-06-06] MEDS: DEXT 5%/0.45% NACL 1000ML 1,000 ML IV SCH (02:34)
[2018-06-06 05:53] LABS: INR 1.6; PROTHROMBIN TIME 16.1 sec (9.1-11.1)
[2018-06-06] MEDS: DOCUSATE SODIUM 250MG CAPSULE PO SCH (09:00)
[2018-06-06] MEDS: PANTOPRAZOLE SODIUM 40 MG/VIAL IV SCH (09:48)
[2018-06-06 09:58] LABS: HEMOGLOBIN. 7.4 g/dL (14.0-18.0); MEAN CORPUSCULAR HEMOGLOBIN 27.1 pg (28.0-32.0); MEAN CORPUSCULAR VOLUME 84.5 fL (80.0-94.0); MEAN PLATELET VOLUME 8.2 fl (7.4-10.4); PLATELET 325 x1000/uL (130-400); RED BLOOD CELL COUNT 2.73 mill/uL (4.7-6.1)
[2018-06-06 10:00] LABS: BG BASE EXCESS 5.5 mmol/L (-2.0-2.0); BG CARBOXYHEMOGLOBIN 0.5 % (0.5-1.5); BG DEOXYHEMOGLOBIN 9.8 % (0.0-5.0); BG HCO3 ACT 31.6 mmol/L (22.0-26.0); BG METHEMOGLOBIN 0.6 % (0.0-1.5); BG OXYGEN SATURATION 90.1 % (92.0-98.5); BG OXYHEMOGLOBIN 89.1 % (94.0-97.0); BG PO2 60.5 mmHg (75.0-100.0); BG SAMPLE SITE RIGHT RADIAL; BG TOTAL HEMOGLOBIN 8.6 g/dL (12.0-18.0); BG VENT MODE NASAL CANNULA
[2018-06-06 11:21] LABS: HAPTOGLOBIN <31.0 mg/dL (30-200)
[2018-06-06 11:36] LABS: PLATELET ESTIMATE NORMAL
[2018-06-06 12:46] LABS: HEMATOCRIT 26.8 % (42.0-52.0); HEMOGLOBIN 8.4 g/dL (14.0-18.0)
[2018-06-06] MEDS: LATANOPROST 0.005% OPHTH DROPS 2.5ML BOTHEYE SCH (21:02)
[2018-06-07] VITALS (11 sets, daily range): BP systolic 113–146; BP diastolic 54–74
[2018-06-07] MEDS: DILTIAZEM HCL 30MG TABLET PO SCH ×5 (00:26→23:49)
[2018-06-07 06:47] LABS: INR 1.5; PROTHROMBIN TIME 15.4 sec (9.1-11.1)
[2018-06-07 06:49] LABS: BASOPHILS % 0.9 % (0.0-2.0); HEMATOCRIT. 23.3 % (42.0-52.0); HEMOGLOBIN. 7.5 g/dL (14.0-18.0); LYMPHOCYTES % 14.5 % (20.0-50.0); MEAN CORPUSCULAR VOLUME 83.4 fL (80.0-94.0); MEAN PLATELET VOLUME 7.9 fl (7.4-10.4); MONOCYTES % 10.7 % (2.0-8.0); NEUTROPHILS % 69.9 % (40.0-76.0); PLATELET 282 x1000/uL (130-400); RED BLOOD CELL COUNT 2.79 mill/uL (4.7-6.1); RED CELL DISTRIBUTION WIDTH 19.3 % (11.6-14.6)
[2018-06-07] MEDS: DOCUSATE SODIUM 250MG CAPSULE PO SCH (08:48)
[2018-06-07] MEDS: PANTOPRAZOLE SODIUM 40 MG/VIAL IV SCH (08:49)
[2018-06-07 09:05] LABS: BG CARBOXYHEMOGLOBIN 0.8 % (0.5-1.5); BG DEOXYHEMOGLOBIN 4.8 % (0.0-5.0); BG FRACTION INSPIRED OXYGEN 32; BG HCO3 ACT 30.8 mmol/L (22.0-26.0); BG METHEMOGLOBIN 0.3 % (0.0-1.5); BG OXYGEN SATURATION 95.1 % (92.0-98.5); BG OXYHEMOGLOBIN 94.1 % (94.0-97.0); BG PCO2 52.7 mmHg (35.0-45.0); BG PH 7.385 (7.350-7.450); BG PO2 80.7 mmHg (75.0-100.0); BG SAMPLE SITE RIGHT RADIAL; BG TOTAL HEMOGLOBIN 8.8 g/dL (12.0-18.0); BG VENT MODE NASAL CANNULA
[2018-06-07] MEDS ORDERED: PREDNISOLONE 15 MG/5 ML ORAL SYRINGE PO SCH ×2 (10:00→11:00)
[2018-06-07] MEDS: LACTOBACILLUS GG CAPSULE PO SCH (13:55)
[2018-06-07 16:36] LABS: CLARITY URINE TURBID (CLEAR); COLOR URINE YELLOW (YELLOW); KETONES URINE NEGATIVE (NEGATIVE); LEUKOCYTE ESTERASE URINE 1+ (NEGATIVE); NITRITE URINE NEGATIVE (NEGATIVE); OCCULT BLOOD URINE 3+ (NEGATIVE); PROTEIN URINE 2+ (NEGATIVE); SPECIFIC GRAVITY URINE 1.013 (1.005-1.030); UROBILINOGEN URINE 0.2 E.U./dL (0.2-1.0)
[2018-06-07] MEDS: LATANOPROST 0.005% OPHTH DROPS 2.5ML BOTHEYE SCH (21:11)
[2018-06-08] VITALS (17 sets, daily range): BP systolic 103–146; BP diastolic 45–76
[2018-06-08] MEDS: DILTIAZEM HCL 30MG TABLET PO SCH ×3 (06:33→17:55)
[2018-06-08 07:05] LABS: HEMATOCRIT. 23.5 % (42.0-52.0); HEMOGLOBIN. 7.5 g/dL (14.0-18.0); MEAN CORPUSCULAR HEMOGLOBIN 26.7 pg (28.0-32.0); MEAN CORPUSCULAR VOLUME 83.1 fL (80.0-94.0); MEAN PLATELET VOLUME 8.2 fl (7.4-10.4); PLATELET 279 x1000/uL (130-400); RED BLOOD CELL COUNT 2.82 mill/uL (4.7-6.1); RED CELL DISTRIBUTION WIDTH 18.5 % (11.6-14.6)
[2018-06-08] MEDS: DOCUSATE SODIUM 250MG CAPSULE PO SCH (08:51)
[2018-06-08 09:23] LABS: BG BASE EXCESS 1.8 mmol/L (-2.0-2.0); BG DEOXYHEMOGLOBIN 3.8 % (0.0-5.0); BG FRACTION INSPIRED OXYGEN 28; BG HCO3 ACT 28.4 mmol/L (22.0-26.0); BG METHEMOGLOBIN 0.3 % (0.0-1.5); BG OXYGEN SATURATION 96.1 % (92.0-98.5); BG OXYHEMOGLOBIN 94.9 % (94.0-97.0); BG PCO2 55.8 mmHg (35.0-45.0); BG PH 7.324 (7.350-7.450); BG PO2 94.8 mmHg (75.0-100.0); BG SAMPLE SITE RIGHT BRACHIAL; BG TOTAL HEMOGLOBIN 8.4 g/dL (12.0-18.0); BG VENT MODE NASAL CANNULA
[2018-06-08] MEDS: PANTOPRAZOLE SODIUM 40 MG/VIAL IV SCH (09:26)
[2018-06-08] MEDS: LACTOBACILLUS GG CAPSULE PO SCH (09:26)
[2018-06-08 09:37] LABS: PLATELET ESTIMATE NORMAL
[2018-06-08 11:29] LABS: HEPATITIS B SURFACE ANTIGEN NEGATIVE
[2018-06-08 11:57] LABS: HEPATITIS B CORE AB IGM NEGATIVE
[2018-06-08 11:58] LABS: HEPATITIS A AB IGM NEGATIVE (NEGATIVE)
[2018-06-08] MEDS ORDERED: LIDOCAINE HCL 1% 10 MG/ML 10ML VIAL ONE ×2 (12:49→12:50)
[2018-06-08] MEDS ORDERED: SODIUM BICARBONATE 4% (2.4MEQ) 5ML VIAL IV ONE (12:49)
[2018-06-08] MEDS ORDERED: HEPARIN 1000 UNITS/ML 10ML ONE (12:50)
[2018-06-08] MEDS ORDERED: CEFAZOLIN 1000MG PREMIX 50 ML IV ONE ×2 (15:00→15:02)
[2018-06-08] MEDS ORDERED: FENTANYL CITRATE/PF 50MCG/ML 2ML VIAL IV ONE (15:05)
[2018-06-08] MEDS ORDERED: FENTANYL CITRATE/PF 50MCG/ML 2ML VIAL ONE (15:12)
[2018-06-08] MEDS ORDERED: FENTANYL CITRATE/PF 50MCG/ML 2ML VIAL IV NR (15:43)
[2018-06-08 17:22] LABS: INR 1.4; PARTIAL THROMBOPLASTIN TIME 38.5 sec (23.4-31.0); PROTHROMBIN TIME 13.9 sec (9.1-11.1)
[2018-06-08] MEDS: PREDNISONE 20MG TABLET PO SCH (17:56)
[2018-06-08] MEDS: LATANOPROST 0.005% OPHTH DROPS 2.5ML BOTHEYE SCH (20:42)
[2018-06-09] VITALS (12 sets, daily range): BP systolic 124–153; BP diastolic 53–91
[2018-06-09] MEDS: DILTIAZEM HCL 30MG TABLET PO SCH ×4 (05:44→18:29)
[2018-06-09] MEDS: PANTOPRAZOLE SODIUM 40 MG/VIAL IV SCH (08:14)
[2018-06-09] MEDS: PREDNISONE 20MG TABLET PO SCH (08:15)
[2018-06-09] MEDS: DOCUSATE SODIUM 250MG CAPSULE PO SCH (08:15)
[2018-06-09] MEDS: LACTOBACILLUS GG CAPSULE PO SCH (08:15)
[2018-06-09 09:59] LABS: BG BASE EXCESS 11.6 mmol/L (-2.0-2.0); BG DEOXYHEMOGLOBIN 1.3 % (0.0-5.0); BG HCO3 ACT 40.8 mmol/L (22.0-26.0); BG METHEMOGLOBIN 0.3 % (0.0-1.5); BG OXYGEN SATURATION 98.7 % (92.0-98.5); BG OXYHEMOGLOBIN 97.4 % (94.0-97.0); BG PCO2 90.8 mmHg (35.0-45.0); BG PO2 133.6 mmHg (75.0-100.0); BG SAMPLE SITE RIGHT RADIAL; BG TOTAL HEMOGLOBIN 8.9 g/dL (12.0-18.0); BG VENT MODE NASAL CANNULA
[2018-06-09 11:06] LABS: HEMATOCRIT. 25.6 % (42.0-52.0); MEAN CORPUSCULAR HEMOGLOBIN 26.5 pg (28.0-32.0); MEAN CORPUSCULAR VOLUME 85.1 fL (80.0-94.0); MEAN PLATELET VOLUME 8.3 fl (7.4-10.4); PLATELET 284 x1000/uL (130-400); RED CELL DISTRIBUTION WIDTH 18.5 % (11.6-14.6)
[2018-06-09 14:56] LABS: BG BASE EXCESS 7.8 mmol/L (-2.0-2.0); BG BILEVEL POS AIRWAY PRESSURE 15/5; BG CARBOXYHEMOGLOBIN 1.2 % (0.5-1.5); BG DEOXYHEMOGLOBIN 2.3 % (0.0-5.0); BG FRACTION INSPIRED OXYGEN 40; BG HCO3 ACT 35.6 mmol/L (22.0-26.0); BG METHEMOGLOBIN 0.1 % (0.0-1.5); BG OXYGEN SATURATION 97.7 % (92.0-98.5); BG OXYHEMOGLOBIN 96.4 % (94.0-97.0); BG PCO2 73.6 mmHg (35.0-45.0); BG PH 7.303 (7.350-7.450); BG PO2 102.4 mmHg (75.0-100.0); BG SAMPLE SITE RIGHT BRACHIAL; BG TOTAL HEMOGLOBIN 8.8 g/dL (12.0-18.0); BG VENT MODE MASK - BIPAP
[2018-06-09] MEDS: ENOXAPARIN 40MG/0.4ML SYR SUBCUT SCH (15:01)
[2018-06-09 16:16] LABS: PLATELET ESTIMATE NORMAL
[2018-06-09] MEDS: LATANOPROST 0.005% OPHTH DROPS 2.5ML BOTHEYE SCH (21:45)
[2018-06-10] VITALS (14 sets, daily range): BP systolic 111–147; BP diastolic 49–79
[2018-06-10] MEDS: DILTIAZEM HCL 30MG TABLET PO SCH ×4 (01:10→17:40)
[2018-06-10 06:33] LABS: BASOPHILS % 0.4 % (0.0-2.0); HEMATOCRIT. 25.6 % (42.0-52.0); HEMOGLOBIN. 7.9 g/dL (14.0-18.0); LYMPHOCYTES % 15.4 % (20.0-50.0); MEAN CORPUSCULAR HEMOGLOBIN 26.5 pg (28.0-32.0); MEAN CORPUSCULAR VOLUME 86.3 fL (80.0-94.0); MEAN PLATELET VOLUME 8.4 fl (7.4-10.4); MONOCYTES % 13.3 % (2.0-8.0); NEUTROPHILS % 70.9 % (40.0-76.0); PLATELET 254 x1000/uL (130-400); RED BLOOD CELL COUNT 2.96 mill/uL (4.7-6.1); RED CELL DISTRIBUTION WIDTH 18.5 % (11.6-14.6)
[2018-06-10 07:36] LABS: BG BASE EXCESS 7.4 mmol/L (-2.0-2.0); BG BILEVEL POS AIRWAY PRESSURE 15/5; BG CARBOXYHEMOGLOBIN 0.6 % (0.5-1.5); BG DEOXYHEMOGLOBIN 1.1 % (0.0-5.0); BG HCO3 ACT 34.2 mmol/L (22.0-26.0); BG METHEMOGLOBIN 0.5 % (0.0-1.5); BG OXYGEN SATURATION 98.9 % (92.0-98.5); BG OXYHEMOGLOBIN 97.8 % (94.0-97.0); BG PCO2 63.7 mmHg (35.0-45.0); BG PH 7.348 (7.350-7.450); BG PO2 148.1 mmHg (75.0-100.0); BG SAMPLE SITE RIGHT RADIAL; BG TOTAL HEMOGLOBIN 8.3 g/dL (12.0-18.0); BG VENT MODE MASK - BIPAP; BG VENT RATE 24 set
[2018-06-10] MEDS: DOCUSATE SODIUM 250MG CAPSULE PO SCH (09:00)
[2018-06-10] MEDS: LACTOBACILLUS GG CAPSULE PO SCH (09:00)
[2018-06-10 09:25] LABS: BG BASE EXCESS 7.9 mmol/L (-2.0-2.0); BG CARBOXYHEMOGLOBIN 0.9 % (0.5-1.5); BG DEOXYHEMOGLOBIN 5.6 % (0.0-5.0); BG HCO3 ACT 35.5 mmol/L (22.0-26.0); BG METHEMOGLOBIN 0.2 % (0.0-1.5); BG OXYGEN SATURATION 94.3 % (92.0-98.5); BG OXYHEMOGLOBIN 93.3 % (94.0-97.0); BG PCO2 70.5 mmHg (35.0-45.0); BG SAMPLE SITE RIGHT RADIAL; BG VENT MODE NASAL CANNULA
[2018-06-10] MEDS: PREDNISONE 10MG TABLET PO SCH (10:05)
[2018-06-10] MEDS: PANTOPRAZOLE SODIUM 40 MG/VIAL IV SCH (10:06)
[2018-06-10] MEDS: ENOXAPARIN 40MG/0.4ML SYR SUBCUT SCH (10:06)
[2018-06-10 13:38] LABS: INR 1.3; PROTHROMBIN TIME 12.6 sec (9.1-11.1)
[2018-06-10] MEDS ORDERED: HEPARIN SODIUM 1,000 UNIT/1ML VIAL IV NR (14:15)
[2018-06-10] MEDS ORDERED: WARFARIN SODIUM 4MG TABLET PO NR (18:00)
[2018-06-10] MEDS: LATANOPROST 0.005% OPHTH DROPS 2.5ML BOTHEYE SCH (20:44)
[2018-06-11] VITALS (12 sets, daily range): BP systolic 102–159; BP diastolic 51–78
[2018-06-11] MEDS: DILTIAZEM HCL 30MG TABLET PO SCH ×5 (00:23→23:58)
[2018-06-11 05:44] LABS: INR 1.2; PROTHROMBIN TIME 11.9 sec (9.1-11.1)
[2018-06-11] MEDS: ENOXAPARIN 40MG/0.4ML SYR SUBCUT SCH (08:02)
[2018-06-11] MEDS: PANTOPRAZOLE SODIUM 40 MG/VIAL IV SCH (08:03)
[2018-06-11] MEDS: DOCUSATE SODIUM 250MG CAPSULE PO SCH (08:03)
[2018-06-11] MEDS: PREDNISONE 10MG TABLET PO SCH (08:03)
[2018-06-11] MEDS: LACTOBACILLUS GG CAPSULE PO SCH (08:03)
[2018-06-11] MEDS: IPRATROPIUM/ALBUTEROL 0.5-3(2.5)MG/3ML NEB HHN PRN (08:51)
[2018-06-11 09:56] LABS: BG BASE EXCESS 5.6 mmol/L (-2.0-2.0); BG DEOXYHEMOGLOBIN 5.6 % (0.0-5.0); BG FRACTION INSPIRED OXYGEN 28; BG HCO3 ACT 31.8 mmol/L (22.0-26.0); BG METHEMOGLOBIN 0.2 % (0.0-1.5); BG OXYGEN SATURATION 94.3 % (92.0-98.5); BG OXYHEMOGLOBIN 93.2 % (94.0-97.0); BG PCO2 55.3 mmHg (35.0-45.0); BG PH 7.378 (7.350-7.450); BG PO2 74.6 mmHg (75.0-100.0); BG SAMPLE SITE RIGHT BRACHIAL; BG VENT MODE NASAL CANNULA
[2018-06-11] MEDS: ENOXAPARIN 80MG/0.8ML SYR SUBCUT SCH ×2 (13:03→23:57)
[2018-06-11] MEDS ORDERED: WARFARIN SODIUM 3MG TABLET PO SCH (18:00)
[2018-06-11] MEDS: LATANOPROST 0.005% OPHTH DROPS 2.5ML BOTHEYE SCH (21:33)
[2018-06-12] VITALS (9 sets, daily range): BP systolic 91–148; BP diastolic 51–83
[2018-06-12] MEDS: DILTIAZEM HCL 30MG TABLET PO SCH ×2 (05:42→12:00)
[2018-06-12 07:30] LABS: INR 1.3; PROTHROMBIN TIME 13.1 sec (9.1-11.1)
[2018-06-12] MEDS: LACTOBACILLUS GG CAPSULE PO SCH (08:23)
[2018-06-12] MEDS: PANTOPRAZOLE SODIUM 40 MG/VIAL IV SCH (08:23)
[2018-06-12] MEDS: ENOXAPARIN 80MG/0.8ML SYR SUBCUT SCH (08:24)
[2018-06-12] MEDS: DOCUSATE SODIUM 250MG CAPSULE PO SCH (08:25)
[2018-06-12 08:29] LABS: BASOPHILS % 0.3 % (0.0-2.0); HEMATOCRIT. 26.3 % (42.0-52.0); HEMOGLOBIN. 8.2 g/dL (14.0-18.0); MEAN CORPUSCULAR HEMOGLOBIN 26.4 pg (28.0-32.0); MEAN CORPUSCULAR VOLUME 84.5 fL (80.0-94.0); MEAN PLATELET VOLUME 8.3 fl (7.4-10.4); MONOCYTES % 14.1 % (2.0-8.0); NEUTROPHILS % 65.6 % (40.0-76.0); PLATELET 241 x1000/uL (130-400); RED BLOOD CELL COUNT 3.11 mill/uL (4.7-6.1); RED CELL DISTRIBUTION WIDTH 18.4 % (11.6-14.6)
[2018-06-12] MEDS: IPRATROPIUM/ALBUTEROL 0.5-3(2.5)MG/3ML NEB HHN PRN (08:37)
[2018-06-12] MEDS ORDERED: PREDNISONE 10MG TABLET PO SCH (09:00)
[2018-06-12] MEDS ORDERED: WARFARIN SODIUM 5MG TABLET PO SCH (18:00)
[2018-06-12] MEDS ORDERED: FUROSEMIDE 40MG TABLET PO SCH (21:00)
[2018-06-13] MEDS ORDERED: ENOXAPARIN 80MG/0.8ML SYR SUBCUT SCH (09:00)
== END 2018-06-12 16:15 | DRG 286 ==
LOC: ER 14:40 → 8WST 17:01 → ENRESERV 19:50 → 3WST 06-05 12:15
PROVIDERS: ADMIT Internal Medicine; ATTEND Internal Medicine
PROC: 30233N1 Transfusion of Nonautologous Red Blood Cells into Peripheral Vein, Percutaneous Approach (ICD-10-PCS; principal; 2018-06-01)
PROC: 5A09457 Assistance with Respiratory Ventilation, 24-96 Consecutive Hours, Continuous Positive Airway Pressure (ICD-10-PCS; 2018-06-04)
PROC: 5A09457 Assistance with Respiratory Ventilation, 24-96 Consecutive Hours, Continuous Positive Airway Pressure (ICD-10-PCS; 2018-06-06)
PROC: 0JH63XZ Insertion of Tunneled Vascular Access Device into Chest Subcutaneous Tissue and Fascia, Percutaneous Approach (ICD-10-PCS; 2018-06-08)
PROC: B2141ZZ Fluoroscopy of Right Heart using Low Osmolar Contrast (ICD-10-PCS; 2018-06-08)
PROC: 5A1D70Z Performance of Urinary Filtration, Intermittent, Less than 6 Hours Per Day (ICD-10-PCS; 2018-06-08)
PROC: 02H633Z Insertion of Infusion Device into Right Atrium, Percutaneous Approach (ICD-10-PCS; 2018-06-08)
PROC: B244ZZZ Ultrasonography of Right Heart (ICD-10-PCS; 2018-06-08)
PROC: 5A1D70Z Performance of Urinary Filtration, Intermittent, Less than 6 Hours Per Day (ICD-10-PCS; 2018-06-09)
PROC: 5A09357 Assistance with Respiratory Ventilation, Less than 24 Consecutive Hours, Continuous Positive Airway Pressure (ICD-10-PCS; 2018-06-11)
DX: I13.0 Hypertensive heart and chronic kidney disease with heart failure and stage 1 through stage 4 chronic kidney disease, or unspecified chronic kidney disease (principal); N17.0 Acute kidney failure with tubular necrosis; G93.41 Metabolic encephalopathy; J96.22 Acute and chronic respiratory failure with hypercapnia; I50.43 Acute on chronic combined systolic (congestive) and diastolic (congestive) heart failure; J44.1 Chronic obstructive pulmonary disease with (acute) exacerbation; E44.0 Moderate protein-calorie malnutrition; E87.2 Acidosis; D68.59 Other primary thrombophilia; I48.92 Unspecified atrial flutter; I42.9 Cardiomyopathy, unspecified; I48.0 Paroxysmal atrial fibrillation; D63.8 Anemia in other chronic diseases classified elsewhere; I25.10 Atherosclerotic heart disease of native coronary artery without angina pectoris; E66.9 Obesity, unspecified; K59.00 Constipation, unspecified; E86.0 Dehydration; N18.9 Chronic kidney disease, unspecified; I49.3 Ventricular premature depolarization; K21.9 Gastro-esophageal reflux disease without esophagitis; K57.90 Diverticulosis of intestine, part unspecified, without perforation or abscess without bleeding; Z53.20 Procedure and treatment not carried out because of patient's decision for unspecified reasons; E11.22 Type 2 diabetes mellitus with diabetic chronic kidney disease; Z95.2 Presence of prosthetic heart valve; Z87.19 Personal history of other diseases of the digestive system; Z79.01 Long term (current) use of anticoagulants; Z86.010 Personal history of colon polyps; Z87.01 Personal history of pneumonia (recurrent); Z87.891 Personal history of nicotine dependence; Z88.0 Allergy status to penicillin; Z91.19 Patient's noncompliance with other medical treatment and regimen; Z95.1 Presence of aortocoronary bypass graft; Z88.8 Allergy status to other drugs, medicaments and biological substances; Z79.899 Other long term (current) drug therapy; Z68.33 Body mass index [BMI] 33.0-33.9, adult
CPT/HCPCS: 36415; 36558; 36589; 36600; 71045; 74018; 74177; 76700; 76770; 76937; 77001; 80048; 80053; 80076; 80202; 81003; 82140; 82270; 82375; 82607; 82728; 82746; 82805; 83010; 83540; 83550; 83605; 83615; 83880; 85014; 85018; 85025; 85044; 85610; 85730; 86705; 86709; 86803; 86850; 86900; 86920; 87015; 87040; 87045; 87340; 87427; 87449; 89055; 93005; 94640; 94660; 96365; 96368; 96375; 97116; 97162; 97530; 99152; 99153; 99285; A6261; C1750; C9113; J0456; J0690; J0696; J1644; J1650; J1940; J3010; J3370; J3490; J7030; J7040; J7060; J7512; J7611; J7620; P9016; Q9963; Q9967; A4315

== ENCOUNTER 2018-07-31 16:29 | Emergency (ER) | payer MEDICARE, MEDICAID ==
[~2018-07-31] VITALS: Ht 165.1 cm; Wt 80.0 kg
[~2018-07-31 16:29] MED LIST changes: -ALLO100T PO; -ASPI-1159 PO; -ATOR20TA65 PO; -CARV6.2548 PO; -COLC0.6T66 PO; +DILT30TA38 MT; -DILT60TA35 PO; -DOCU-150 PO; +DOCU250C14 PO; -FURO-152 PO; +FURO20TA4 PO; -P20 PO; +PANT40TA4 PO; +PRED10TA23 PO
[2018-07-31 17:36] LABS: CHLORIDE 97 mEq/L (98-107)
[2018-07-31 17:46] LABS: HEMATOCRIT. 27.5 % (42.0-52.0); MEAN CORPUSCULAR HEMOGLOBIN 27.9 pg (28.0-32.0); MEAN CORPUSCULAR VOLUME 85.4 fL (80.0-94.0); MEAN PLATELET VOLUME 8.1 fl (7.4-10.4); PLATELET 599 x1000/uL (130-400); RED BLOOD CELL COUNT 3.22 mill/uL (4.7-6.1); RED CELL DISTRIBUTION WIDTH 23.4 % (11.6-14.6)
[2018-07-31 18:17] LABS: PLATELET ESTIMATE INCREASED
[2018-07-31 18:17] LABS: CLARITY URINE CLEAR (CLEAR); COLOR URINE DARK YELLOW (YELLOW); KETONES URINE TRACE (NEGATIVE); LEUKOCYTE ESTERASE URINE TRACE (NEGATIVE); NITRITE URINE NEGATIVE (NEGATIVE); OCCULT BLOOD URINE NEGATIVE (NEGATIVE); PROTEIN URINE TRACE (NEGATIVE); SPECIFIC GRAVITY URINE 1.016 (1.005-1.030)
[2018-07-31 19:20] VITALS: BP 148/64
== END 2018-07-31 19:24 | disposition home or self-care (01) ==
LOC: ER 16:29
DX: G93.40 Encephalopathy, unspecified (principal); D50.0 Iron deficiency anemia secondary to blood loss (chronic); I48.91 Unspecified atrial fibrillation; N28.9 Disorder of kidney and ureter, unspecified; J44.9 Chronic obstructive pulmonary disease, unspecified; I50.9 Heart failure, unspecified; I25.10 Atherosclerotic heart disease of native coronary artery without angina pectoris; J18.9 Pneumonia, unspecified organism; K92.2 Gastrointestinal hemorrhage, unspecified; Z98.890 Other specified postprocedural states; Z88.0 Allergy status to penicillin; Z79.899 Other long term (current) drug therapy
CPT/HCPCS: 36415; 82962; 93005; 99285

== ENCOUNTER 2018-11-20 15:10 | Inpatient (IN) | payer MEDICARE, MEDICAID ==
[~2018-11-20] VITALS: Ht 165.1 cm; Wt 68.1 kg
[2018-11-20] MEDS ORDERED: SODIUM CHLORIDE 0.9% 1,000 ML IV ONE (16:45)
[2018-11-20 17:18] LABS: HEMATOCRIT. 26.6 % (42.0-52.0); HEMOGLOBIN. 8.8 g/dL (14.0-18.0); MEAN CORPUSCULAR HEMOGLOBIN 29.7 pg (28.0-32.0); MEAN CORPUSCULAR VOLUME 89.7 fL (80.0-94.0); MEAN PLATELET VOLUME 9.2 fl (7.4-10.4); PLATELET 268 x1000/uL (130-400); RED BLOOD CELL COUNT 2.97 mill/uL (4.7-6.1); RED CELL DISTRIBUTION WIDTH 16.1 % (11.6-14.6)
[2018-11-20 17:24] LABS: CHLORIDE 105 mEq/L (98-107)
[2018-11-20 17:42] LABS: PARTIAL THROMBOPLASTIN TIME 55.1 sec (23.4-31.0); PROTHROMBIN TIME 39.5 sec (9.1-11.1)
[2018-11-20 17:56] LABS: PLATELET ESTIMATE NORMAL
[2018-11-20] MEDS ORDERED: MORPHINE SULFATE 4 MG/ML CPJ (NOT FOR IM USE) IV NR (23:45)
[2018-11-21] MEDS ORDERED: CLINDAMYCIN 600 MG in SODIUM CHLORIDE 0.9% 50 ML IV NR (01:00)
[2018-11-21 04:30] VITALS: BP 128/63
[2018-11-21] MEDS ORDERED: DIGO125T82 PO (06:06)
[2018-11-21] MEDS ORDERED: METO5TAB69 PO (06:06)
[2018-11-21] MEDS ORDERED: TRAV2.5D EACHEYE (06:06)
[2018-11-21] MEDS ORDERED: POTA25TA13 PO (06:06)
[2018-11-21] MEDS ORDERED: WARF4TAB40 PO (06:06)
[2018-11-21] MEDS ORDERED: WARF5TAB76 PO ×5 (06:06)
[2018-11-21] MEDS ORDERED: FURO-151 PO (06:06)
[2018-11-21] MEDS ORDERED: DILT60TA35 PO (06:06)
[2018-11-21] MEDS ORDERED: DILTIAZEM HCL 90 MG PO SCH (06:15)
[2018-11-21 06:18] LABS: CLARITY URINE CLEAR (CLEAR); COLOR URINE YELLOW (YELLOW); KETONES URINE NEGATIVE (NEGATIVE); LEUKOCYTE ESTERASE URINE TRACE (NEGATIVE); NITRITE URINE NEGATIVE (NEGATIVE); OCCULT BLOOD URINE 1+ (NEGATIVE); PROTEIN URINE NEGATIVE (NEGATIVE); SPECIFIC GRAVITY URINE 1.011 (1.005-1.030); UROBILINOGEN URINE 0.2 E.U./dL (0.2-1.0)
[2018-11-21] MEDS ORDERED: GUAIFENESIN 200MG/10ML SUGAR FREE UDC PO PRN (08:00)
[2018-11-21] MEDS ORDERED: ACETAMINOPHEN 325MG TABLET PO PRN (08:00)
[2018-11-21] MEDS ORDERED: NA PHOS,M-B/NA PHOS,DI-BA ENEMA 118ML PR PRN (08:00)
[2018-11-21] MEDS ORDERED: CLONIDINE 0.1MG TABLET PO PRN (08:00)
[2018-11-21] MEDS ORDERED: IPRATROPIUM/ALBUTEROL 0.5-3(2.5)MG/3ML NEB INH PRN (08:00)
[2018-11-21] MEDS ORDERED: MAGNESIUM/ALUMINUM HYDROXIDE/SIMETHICONE 30ML UDC PO PRN (08:00)
[2018-11-21] MEDS ORDERED: ACETAMINOPHEN 650MG/20.3ML UDC GT PRN (08:00)
[2018-11-21] MEDS ORDERED: ACETAMINOPHEN 650MG SUPP PR PRN (08:00)
[2018-11-21] MEDS ORDERED: DIPHENHYDRAMINE 50MG/ML VIAL IV PRN (08:00)
[2018-11-21] MEDS ORDERED: HYDROCODONE/ACETAMINOPHEN 5/325MG TABLET PO PRN (08:00)
[2018-11-21] MEDS ORDERED: HYDROCODONE/ACETAMINOPHEN 10/325MG TABLET PO PRN (08:00)
[2018-11-21] MEDS ORDERED: DOCUSATE SODIUM 100MG CAPSULE PO PRN (08:00)
[2018-11-21 08:25] LABS: HEMATOCRIT 24.2 % (42.0-52.0); HEMOGLOBIN 8.1 g/dL (14.0-18.0); MEAN CORPUSCULAR HEMOGLOBIN 29.8 pg (28.0-32.0); MEAN CORPUSCULAR VOLUME 88.8 fL (80.0-94.0); PLATELET 246 x1000/uL (130-400); RED BLOOD CELL COUNT 2.72 mill/uL (4.7-6.1); RED CELL DISTRIBUTION WIDTH 16.6 % (11.6-14.6)
[2018-11-21] MEDS: METOLAZONE 5MG TABLET PO SCH (08:41)
[2018-11-21] MEDS: FUROSEMIDE 40MG TABLET PO SCH (08:42)
[2018-11-21] MEDS: DILTIAZEM HCL 90MG TABLET PO SCH ×3 (08:42→17:26)
[2018-11-21 08:56] VITALS: BP 127/74
[2018-11-21 08:58] LABS: CHLORIDE 109 mEq/L (98-107)
[2018-11-21] MEDS ORDERED: MEDICATION NOT ON FORMULARY EA (Furosemide (Lasix) 40 MG) PO SCH (09:00)
[2018-11-21] MEDS ORDERED: MEDICATION NOT ON FORMULARY EA (Metolazone 5 MG) PO SCH (09:00)
[2018-11-21] MEDS ORDERED: PANTOPRAZOLE SODIUM 40 MG/VIAL IV SCH ×2 (09:00)
[2018-11-21] MEDS: DEXT 5%/0.45% NACL 1000ML 1,000 ML IV SCH (09:56)
[2018-11-21 11:35] LABS: *AMPHETAMINES SCREEN URINE NEGATIVE (NEGATIVE); *BARBITURATES SCREEN URINE NEGATIVE (NEGATIVE); *COCAINE SCREEN URINE NEGATIVE (NEGATIVE)
[2018-11-21 11:36] LABS: CANNABINOID URINE SCREEN NEGATIVE (NEGATIVE); METHADONE URINE SCREEN NEGATIVE (NEGATIVE); OPIATES URINE SCREEN NEGATIVE (NEGATIVE); PHENCYCLIDINE URINE SCREEN NEGATIVE (NEGATIVE)
[2018-11-21 11:39] LABS: *BENZODIAZEPINES SCREEN URINE NEGATIVE (NEGATIVE)
[2018-11-21 11:58] VITALS: BP 102/58
[2018-11-21] MEDS: SODIUM CHLORIDE 0.9% INJ 3ML FLUSH IVF SCH ×2 (14:01→21:13)
[2018-11-21 16:26] VITALS: BP 102/49
[2018-11-21 16:53] LABS: HEMATOCRIT 26.3 % (42.0-52.0); HEMOGLOBIN 8.7 g/dL (14.0-18.0)
[2018-11-21 17:07] LABS: INR 3.3; PARTIAL THROMBOPLASTIN TIME 59.2 sec (23.4-31.0); PROTHROMBIN TIME 32.5 sec (9.1-11.1)
[2018-11-21 17:11] LABS: CLARITY URINE CLEAR (CLEAR); COLOR URINE YELLOW (YELLOW); KETONES URINE NEGATIVE (NEGATIVE); LEUKOCYTE ESTERASE URINE NEGATIVE (NEGATIVE); NITRITE URINE NEGATIVE (NEGATIVE); OCCULT BLOOD URINE TRACE (NEGATIVE); PROTEIN URINE NEGATIVE (NEGATIVE); SPECIFIC GRAVITY URINE 1.012 (1.005-1.030); UROBILINOGEN URINE 0.2 E.U./dL (0.2-1.0)
[2018-11-21] MEDS: DIGOXIN 125MCG TABLET PO SCH (18:47)
[2018-11-21 20:11] VITALS: BP 125/56
[2018-11-21] MEDS: LATANOPROST 0.005% OPHTH DROPS 2.5ML BOTHEYE SCH (20:30)
[2018-11-21] MEDS: PANTOPRAZOLE SODIUM 40 MG/VIAL IV SCH (20:31)
[2018-11-21] MEDS ORDERED: MEDICATION NOT ON FORMULARY EA (Travoprost (Travatan Z) 1 DROP) EACHEYE SCH (21:00)
[2018-11-21 21:57] LABS: HEMATOCRIT 23.9 % (42.0-52.0); HEMOGLOBIN 7.9 g/dL (14.0-18.0)
[2018-11-21] MEDS ORDERED: PHYTONADIONE 10MG/ML AMP SUBCUT NR (23:00)
[2018-11-21 23:53] VITALS: BP 115/60
[2018-11-22] VITALS (16 sets, daily range): BP systolic 100–117; BP diastolic 47–65
[2018-11-22] MEDS: DILTIAZEM HCL 90MG TABLET PO SCH ×4 (00:37→18:00)
[2018-11-22] MEDS: DEXT 5%/0.45% NACL 1000ML 1,000 ML IV SCH ×2 (05:08→15:49)
[2018-11-22] MEDS: SODIUM CHLORIDE 0.9% INJ 3ML FLUSH IVF SCH ×3 (05:09→21:40)
[2018-11-22 07:22] LABS: HEMOGLOBIN. 7.1 g/dL (14.0-18.0); MEAN CORPUSCULAR HEMOGLOBIN 30.8 pg (28.0-32.0); MEAN CORPUSCULAR VOLUME 89.2 fL (80.0-94.0); MEAN PLATELET VOLUME 9.2 fl (7.4-10.4); PLATELET 234 x1000/uL (130-400); RED CELL DISTRIBUTION WIDTH 16.7 % (11.6-14.6)
[2018-11-22 07:45] LABS: INR 2.4; PROTHROMBIN TIME 24.2 sec (9.1-11.1)
[2018-11-22 08:44] LABS: HEMATOCRIT. 20.6 % (42.0-52.0)
[2018-11-22 08:46] LABS: CHLORIDE 105 mEq/L (98-107)
[2018-11-22 09:03] LABS: LDL CHOLESTEROL 73 mg/dL (5-100)
[2018-11-22 09:04] LABS: HDL CHOLESTEROL 33 mg/dL (40-59)
[2018-11-22] MEDS: PANTOPRAZOLE SODIUM 40 MG/VIAL IV SCH ×2 (09:29→21:40)
[2018-11-22] MEDS: FUROSEMIDE 40MG TABLET PO SCH (09:29)
[2018-11-22] MEDS: METOLAZONE 5MG TABLET PO SCH (09:29)
[2018-11-22 10:26] LABS: PLATELET ESTIMATE NORMAL
[2018-11-22] MEDS ORDERED: FENTANYL CITRATE/PF 50MCG/ML 2ML VIAL ONE (16:28)
[2018-11-22] MEDS ORDERED: MIDAZOLAM HCL 5 MG/5 ML VIAL ONE (16:29)
[2018-11-22] MEDS: DIGOXIN 125MCG TABLET PO SCH (18:00)
[2018-11-22] MEDS: LATANOPROST 0.005% OPHTH DROPS 2.5ML BOTHEYE SCH (21:40)
[2018-11-22] MEDS: NYSTATIN POWDER 15GM TOP SCH (22:04)
[2018-11-23] VITALS (7 sets, daily range): BP systolic 103–125; BP diastolic 41–68
[2018-11-23] MEDS: DILTIAZEM HCL 90MG TABLET PO SCH ×4 (00:43→18:00)
[2018-11-23] MEDS: SODIUM CHLORIDE 0.9% INJ 3ML FLUSH IVF SCH ×3 (05:55→20:46)
[2018-11-23 06:58] LABS: BASOPHILS % 0.5 % (0.0-2.0); EOSINOPHILS % 2.6 % (0.0-5.0); HEMATOCRIT. 28.1 % (42.0-52.0); HEMOGLOBIN. 9.2 g/dL (14.0-18.0); LYMPHOCYTES % 15.3 % (20.0-50.0); MEAN CORPUSCULAR HEMOGLOBIN 28.9 pg (28.0-32.0); MEAN CORPUSCULAR VOLUME 88.6 fL (80.0-94.0); MEAN PLATELET VOLUME 9.2 fl (7.4-10.4); MONOCYTES % 14.9 % (2.0-8.0); NEUTROPHILS % 66.7 % (40.0-76.0); PLATELET 247 x1000/uL (130-400); RED BLOOD CELL COUNT 3.17 mill/uL (4.7-6.1); RED CELL DISTRIBUTION WIDTH 16.5 % (11.6-14.6)
[2018-11-23 07:04] LABS: CHLORIDE 103 mEq/L (98-107)
[2018-11-23] MEDS ORDERED: POTASSIUM CHLORIDE 20MEQ/PACKET PO NR (09:30)
[2018-11-23] MEDS: PANTOPRAZOLE SODIUM 40 MG/VIAL IV SCH ×2 (09:31→20:45)
[2018-11-23] MEDS: METOLAZONE 5MG TABLET PO SCH (09:31)
[2018-11-23] MEDS: NYSTATIN POWDER 15GM TOP SCH ×3 (09:39→18:54)
[2018-11-23] MEDS: DIGOXIN 125MCG TABLET PO SCH (18:54)
[2018-11-23] MEDS: LATANOPROST 0.005% OPHTH DROPS 2.5ML BOTHEYE SCH (20:45)
[2018-11-23] MEDS: DEXT 5%/0.45% NACL 1000ML 1,000 ML IV SCH (20:46)
[2018-11-24] MEDS: DILTIAZEM HCL 90MG TABLET PO SCH ×4 (00:11→19:08)
[2018-11-24 03:51] VITALS: BP 94/49
[2018-11-24] MEDS: SODIUM CHLORIDE 0.9% INJ 3ML FLUSH IVF SCH ×2 (05:44→13:07)
[2018-11-24 05:58] LABS: INR 1.9; PROTHROMBIN TIME 19.3 sec (9.1-11.1)
[2018-11-24 06:02] LABS: HEMATOCRIT. 26.5 % (42.0-52.0); HEMOGLOBIN. 8.7 g/dL (14.0-18.0); MEAN CORPUSCULAR HEMOGLOBIN 29.2 pg (28.0-32.0); MEAN PLATELET VOLUME 9.1 fl (7.4-10.4); PLATELET 241 x1000/uL (130-400); RED BLOOD CELL COUNT 2.98 mill/uL (4.7-6.1); RED CELL DISTRIBUTION WIDTH 16.4 % (11.6-14.6)
[2018-11-24 08:32] LABS: CHLORIDE 106 mEq/L (98-107)
[2018-11-24 08:52] LABS: DIGOXIN 1.2 ng/mL (0.9-2.0)
[2018-11-24] MEDS: PANTOPRAZOLE SODIUM 40 MG/VIAL IV SCH (09:13)
[2018-11-24] MEDS: METOLAZONE 5MG TABLET PO SCH (09:13)
[2018-11-24] MEDS: NYSTATIN POWDER 15GM TOP SCH ×3 (09:18→19:08)
[2018-11-24 10:12] LABS: BG BASE EXCESS 2.6 mmol/L (-2.0-2.0); BG CARBOXYHEMOGLOBIN 1.5 % (0.5-1.5); BG DEOXYHEMOGLOBIN 5.8 % (0.0-5.0); BG FRACTION INSPIRED OXYGEN 21; BG HCO3 ACT 25.7 mmol/L (22.0-26.0); BG METHEMOGLOBIN 0.3 % (0.0-1.5); BG OXYGEN SATURATION 94.1 % (92.0-98.5); BG OXYHEMOGLOBIN 92.4 % (94.0-97.0); BG PH 7.497 (7.350-7.450); BG PO2 69.2 mmHg (75.0-100.0); BG SAMPLE SITE RIGHT BRACHIAL; BG TOTAL HEMOGLOBIN 9.4 g/dL (12.0-18.0); BG VENT MODE ROOM AIR
[2018-11-24 11:50] VITALS: BP 108/59
[2018-11-24 13:00] VITALS: BP 109/52
[2018-11-24 15:25] LABS: PLATELET ESTIMATE NORMAL
[2018-11-24] MEDS: DEXT 5%/0.45% NACL 1000ML 1,000 ML IV SCH (16:00)
[2018-11-24] MEDS ORDERED: WARFARIN SODIUM 4MG TABLET PO SCH (18:00)
[2018-11-24] MEDS: DIGOXIN 125MCG TABLET PO SCH (19:09)
[2018-11-24 19:26] VITALS: BP 128/68
[2018-11-24 20:00] VITALS: BP 128/68
== END 2018-11-24 21:13 | DRG 377 ==
LOC: ER 15:23 → 6WST 11-21 02:16 → EDBEDREQDT 11-21 02:32 → EDBEDREQ 11-21 02:32 → EDBEDREQTM 11-21 02:32 → ENRESERV 11-21 02:55
PROVIDERS: ADMIT Internal Medicine; ATTEND Internal Medicine
PROC: 30233N1 Transfusion of Nonautologous Red Blood Cells into Peripheral Vein, Percutaneous Approach (ICD-10-PCS; principal; 2018-11-22)
PROC: 0DB68ZX Excision of Stomach, Via Natural or Artificial Opening Endoscopic, Diagnostic (ICD-10-PCS; 2018-11-22)
PROC: 30233K1 Transfusion of Nonautologous Frozen Plasma into Peripheral Vein, Percutaneous Approach (ICD-10-PCS; 2018-11-22)
DX: K29.71 Gastritis, unspecified, with bleeding (principal); I50.23 Acute on chronic systolic (congestive) heart failure; D68.9 Coagulation defect, unspecified; I42.9 Cardiomyopathy, unspecified; I48.92 Unspecified atrial flutter; I13.0 Hypertensive heart and chronic kidney disease with heart failure and stage 1 through stage 4 chronic kidney disease, or unspecified chronic kidney disease; K57.31 Diverticulosis of large intestine without perforation or abscess with bleeding; E11.22 Type 2 diabetes mellitus with diabetic chronic kidney disease; R09.02 Hypoxemia; J44.9 Chronic obstructive pulmonary disease, unspecified; D64.9 Anemia, unspecified; K43.9 Ventral hernia without obstruction or gangrene; N18.3 Chronic kidney disease, stage 3 (moderate); I48.2 Chronic atrial fibrillation; E78.5 Hyperlipidemia, unspecified; R41.89 Other symptoms and signs involving cognitive functions and awareness; N49.8 Inflammatory disorders of other specified male genital organs; Z79.01 Long term (current) use of anticoagulants; Z87.01 Personal history of pneumonia (recurrent); Z88.0 Allergy status to penicillin; Z95.2 Presence of prosthetic heart valve; Z95.1 Presence of aortocoronary bypass graft
CPT/HCPCS: 36415; 36600; 71045; 74176; 80048; 80061; 80162; 80305; 82375; 82805; 82962; 84134; 85014; 85018; 85027; 86850; 86870; 86900; 86920; 86927; 87077; 87186; 88305; 88312; 88313; 93005; 93306; 96374; 96375; 99285; A6261; C9113; J2250; J2270; J3010; J3490; J7030; J7040; P9016; P9017

== ENCOUNTER 2019-03-12 20:07 | Inpatient (IN) | payer MEDICARE, MEDICAID ==
[~2019-03-12] VITALS: Ht 170.2 cm; Wt 77.6 kg
[~2019-03-12 20:07] MED LIST changes: +DIGO125T82 PO; +DILT60TA35 PO; +FURO-151 PO; +METO5TAB69 PO; +POTA25TA13 PO; +TRAV2.5D EACHEYE; +WARF5TAB76 PO
[2019-03-12 21:48] LABS: EOSINOPHILS % 3.2 % (0.0-5.0); LYMPHOCYTES % 15.1 % (20.0-50.0); MEAN CORPUSCULAR HEMOGLOBIN 28.7 pg (28.0-32.0); MEAN CORPUSCULAR VOLUME 96.2 fL (80.0-94.0); MEAN PLATELET VOLUME 7.9 fl (7.4-10.4); MONOCYTES % 9.8 % (2.0-8.0); NEUTROPHILS % 70.9 % (40.0-76.0); PLATELET 337 x1000/uL (130-400); RED BLOOD CELL COUNT 1.39 mill/uL (4.7-6.1); RED CELL DISTRIBUTION WIDTH 22.3 % (11.6-14.6)
[2019-03-12 21:51] LABS: HEMATOCRIT. 13.4 % (42.0-52.0)
[2019-03-12 21:53] LABS: CHLORIDE 111 mEq/L (98-107)
[2019-03-12 22:05] LABS: PLATELET ESTIMATE NORMAL
[2019-03-12] MEDS ORDERED: INSULIN REGULAR (HUMULIN R) 300UNITS/3ML IV NR (23:30)
[2019-03-12] MEDS ORDERED: SODIUM BICARBONATE 8.4% 1 MEQ/ML 50ML SYR IV NR (23:30)
[2019-03-12] MEDS ORDERED: DEXTROSE 50% WATER 50ML SYRINGE IV NR (23:30)
[2019-03-12] MEDS ORDERED: CALCIUM CHLORIDE 1GM/10ML SYR IV NR (23:30)
[2019-03-13] VITALS (16 sets, daily range): BP systolic 115–144; BP diastolic 38–79
[2019-03-13] MEDS ORDERED: FAMOTIDINE 20MG/2ML VIAL IV NR
[2019-03-13] MEDS ORDERED: SODIUM CHLORIDE 0.9% 1,000 ML IV SCH (06:15)
[2019-03-13 10:17] LABS: CHLORIDE 113 mEq/L (98-107); MEAN CORPUSCULAR VOLUME 86.4 fL (80.0-94.0); MEAN PLATELET VOLUME 7.6 fl (7.4-10.4); PLATELET 284 x1000/uL (130-400); RED BLOOD CELL COUNT 1.76 mill/uL (4.7-6.1); RED CELL DISTRIBUTION WIDTH 27.8 % (11.6-14.6)
[2019-03-13 10:23] LABS: HEMATOCRIT. 15.2 % (42.0-52.0); HEMOGLOBIN. 4.7 g/dL (14.0-18.0)
[2019-03-13] MEDS ORDERED: DEXT 5%/0.9% NACL 1,000 ML IV SCH (10:45)
[2019-03-13] MEDS ORDERED: DEXTROSE 50% WATER 50ML SYRINGE IV NR (10:45)
[2019-03-13] MEDS: DEXT 5%/0.45% NACL 1000ML 1,000 ML IV SCH (10:59)
[2019-03-13] MEDS ORDERED: ONDANSETRON HCL 4MG/2ML INJ IV PRN (11:15)
[2019-03-13] MEDS ORDERED: ACETAMINOPHEN 650MG SUPP PR PRN (11:15)
[2019-03-13] MEDS ORDERED: DIPHENHYDRAMINE 50MG/ML VIAL IV PRN (11:15)
[2019-03-13] MEDS ORDERED: CLONIDINE 0.1MG TABLET PO PRN (11:15)
[2019-03-13] MEDS ORDERED: IPRATROPIUM/ALBUTEROL 0.5-3(2.5)MG/3ML NEB INH PRN (11:15)
[2019-03-13 12:11] LABS: PLATELET ESTIMATE NORMAL
[2019-03-13 17:00] LABS: HEMOGLOBIN 6.8 g/dL (14.0-18.0)
[2019-03-13 17:03] LABS: INR 1.2; PARTIAL THROMBOPLASTIN TIME 31.3 sec (23.4-31.0); PROTHROMBIN TIME 12.7 sec (9.6-11.0)
[2019-03-13 17:09] LABS: TOTAL IRON BINDING CAPACITY 278 ug/dL (250-450)
[2019-03-13 17:10] LABS: CREATINE KINASE MB FRACTION 1.3 ng/mL (0.5-3.6)
[2019-03-13 17:19] LABS: FERRITIN 60 ng/mL (22-322)
[2019-03-13 17:31] LABS: VITAMIN B12 SERUM 736 pg/mL (211-911)
[2019-03-13 17:34] LABS: FOLIC ACID (FOLATE) SERUM > 20.00 ng/mL (>5.38)
[2019-03-13] MEDS: DILTIAZEM HCL 60MG TABLET PO SCH (18:00)
[2019-03-13 22:18] LABS: HEMATOCRIT 22.7 % (42.0-52.0); HEMOGLOBIN 7.3 g/dL (14.0-18.0)
[2019-03-13 23:43] LABS: CLARITY URINE CLEAR (CLEAR); COLOR URINE YELLOW (YELLOW); KETONES URINE NEGATIVE (NEGATIVE); LEUKOCYTE ESTERASE URINE NEGATIVE (NEGATIVE); NITRITE URINE NEGATIVE (NEGATIVE); OCCULT BLOOD URINE 3+ (NEGATIVE); PROTEIN URINE NEGATIVE (NEGATIVE); SPECIFIC GRAVITY URINE 1.014 (1.005-1.030)
[2019-03-14] VITALS (9 sets, daily range): BP systolic 113–146; BP diastolic 47–72
[2019-03-14 00:01] LABS: *AMPHETAMINES SCREEN URINE NEGATIVE (NEGATIVE); *BARBITURATES SCREEN URINE NEGATIVE (NEGATIVE); *BENZODIAZEPINES SCREEN URINE NEGATIVE (NEGATIVE); *COCAINE SCREEN URINE NEGATIVE (NEGATIVE); CANNABINOID URINE SCREEN NEGATIVE (NEGATIVE); METHADONE URINE SCREEN NEGATIVE (NEGATIVE); OPIATES URINE SCREEN NEGATIVE (NEGATIVE); PHENCYCLIDINE URINE SCREEN NEGATIVE (NEGATIVE)
[2019-03-14 02:40] LABS: HEMATOCRIT 25.7 % (42.0-52.0); HEMOGLOBIN 8.5 g/dL (14.0-18.0)
[2019-03-14 02:58] LABS: CREATINE KINASE MB FRACTION 1.3 ng/mL (0.5-3.6)
[2019-03-14] MEDS: DILTIAZEM HCL 60MG TABLET PO SCH ×4 (06:00→18:00)
[2019-03-14] MEDS ORDERED: FUROSEMIDE 40MG/4ML VIAL IVP SCH (07:45)
[2019-03-14] MEDS ORDERED: BISACODYL 5MG TABLET PO SCH ×3 (11:00→19:00)
[2019-03-14] MEDS ORDERED: METOCLOPRAMIDE HCL 10MG/2ML VIAL IV SCH ×3 (11:00→19:00)
[2019-03-14] MEDS ORDERED: SORBITOL 70% SOLN 30ML PO SCH ×3 (12:00→20:00)
[2019-03-14 12:34] LABS: HEMATOCRIT 25.6 % (42.0-52.0); HEMOGLOBIN 8.3 g/dL (14.0-18.0)
[2019-03-14] MEDS: DEXT 5%/0.45% NACL 1000ML 1,000 ML IV SCH ×2 (16:55→16:56)
[2019-03-14] MEDS ORDERED: DILTIAZEM HCL 5MG/ML 5ML VIAL IV NR (17:15)
[2019-03-14 22:20] LABS: HEMATOCRIT 29.3 % (42.0-52.0); HEMOGLOBIN 9.2 g/dL (14.0-18.0)
[2019-03-15] VITALS (7 sets, daily range): BP systolic 99–159; BP diastolic 63–75
[2019-03-15] MEDS: DILTIAZEM HCL 60MG TABLET PO SCH ×5 (06:00→23:59)
[2019-03-15 06:31] LABS: BASOPHILS % 1.1 % (0.0-2.0); EOSINOPHILS % 5.2 % (0.0-5.0); HEMATOCRIT. 26.7 % (42.0-52.0); LYMPHOCYTES % 8.3 % (20.0-50.0); MEAN CORPUSCULAR HEMOGLOBIN 27.6 pg (28.0-32.0); MEAN CORPUSCULAR VOLUME 85.7 fL (80.0-94.0); MEAN PLATELET VOLUME 7.4 fl (7.4-10.4); MONOCYTES % 11.4 % (2.0-8.0); PLATELET 293 x1000/uL (130-400); RED BLOOD CELL COUNT 3.12 mill/uL (4.7-6.1); RED CELL DISTRIBUTION WIDTH 21.7 % (11.6-14.6)
[2019-03-15 06:42] LABS: INR 1.4; PROTHROMBIN TIME 14.2 sec (9.6-11.0)
[2019-03-15 07:22] LABS: HEMOGLOBIN. 8.6 g/dL (14.0-18.0)
[2019-03-15] MEDS ORDERED: DILTIAZEM HCL 5MG/ML 10ML VIAL IV SCH (08:30)
[2019-03-15] MEDS ORDERED: DILTIAZEM HCL 5MG/ML 10ML VIAL IV PRN (08:30)
[2019-03-15] MEDS ORDERED: DEXTROSE 5% WATER 1,000 ML IV SCH (09:30)
[2019-03-15] MEDS: DEXTROSE 5% WATER 1,000 ML IV SCH (10:14)
[2019-03-15 12:56] LABS: HEMATOCRIT 28.8 % (42.0-52.0)
[2019-03-15 13:05] LABS: INR 1.4; PROTHROMBIN TIME 14.3 sec (9.6-11.0)
[2019-03-15] MEDS ORDERED: MIDAZOLAM HCL 5 MG/5 ML VIAL ONE (15:06)
[2019-03-15] MEDS ORDERED: PROPOFOL 200MG/20ML VIAL IV ONE (15:06)
[2019-03-16] VITALS: BP 145/69
[2019-03-16 04:00] VITALS: BP 122/62
[2019-03-16] MEDS: DILTIAZEM HCL 60MG TABLET PO SCH ×3 (05:09→19:06)
[2019-03-16 07:40] LABS: BASOPHILS % 0.7 % (0.0-2.0); EOSINOPHILS % 7.2 % (0.0-5.0); HEMATOCRIT. 23.7 % (42.0-52.0); HEMOGLOBIN. 7.7 g/dL (14.0-18.0); LYMPHOCYTES % 14.2 % (20.0-50.0); MEAN CORPUSCULAR HEMOGLOBIN 27.9 pg (28.0-32.0); MEAN CORPUSCULAR VOLUME 85.7 fL (80.0-94.0); MEAN PLATELET VOLUME 7.6 fl (7.4-10.4); MONOCYTES % 8.8 % (2.0-8.0); NEUTROPHILS % 69.1 % (40.0-76.0); PLATELET 248 x1000/uL (130-400); RED BLOOD CELL COUNT 2.77 mill/uL (4.7-6.1); RED CELL DISTRIBUTION WIDTH 21.5 % (11.6-14.6)
[2019-03-16 08:00] VITALS: BP 125/56
[2019-03-16] MEDS: DEXTROSE 5% WATER 1,000 ML IV SCH (08:50)
[2019-03-16 12:00] VITALS: BP 100/49
[2019-03-16 16:00] VITALS: BP 123/63
[2019-03-16] MEDS ORDERED: WARFARIN SODIUM 4MG TABLET PO SCH (18:00)
[2019-03-16 20:00] VITALS: BP 110/62
[2019-03-16 21:04] LABS: HEMATOCRIT 24.7 % (42.0-52.0); HEMOGLOBIN 7.8 g/dL (14.0-18.0)
[2019-03-16] MEDS: OMEPRAZOLE 20MG CAPSULE EXTENDED RELEASE PO SCH (21:21)
[2019-03-17] VITALS (7 sets, daily range): BP systolic 98–121; BP diastolic 44–57
[2019-03-17 00:29] LABS: HEMATOCRIT 25.3 % (42.0-52.0)
[2019-03-17] MEDS: DILTIAZEM HCL 60MG TABLET PO SCH ×3 (06:00→11:17)
[2019-03-17] MEDS: OMEPRAZOLE 20MG CAPSULE EXTENDED RELEASE PO SCH (06:39)
[2019-03-17 06:47] LABS: BASOPHILS % 1.3 % (0.0-2.0); EOSINOPHILS % 7.2 % (0.0-5.0); HEMATOCRIT. 23.5 % (42.0-52.0); HEMOGLOBIN. 7.5 g/dL (14.0-18.0); LYMPHOCYTES % 14.3 % (20.0-50.0); MEAN CORPUSCULAR HEMOGLOBIN 27.4 pg (28.0-32.0); MEAN CORPUSCULAR VOLUME 85.7 fL (80.0-94.0); MEAN PLATELET VOLUME 7.8 fl (7.4-10.4); NEUTROPHILS % 67.2 % (40.0-76.0); PLATELET 231 x1000/uL (130-400); RED BLOOD CELL COUNT 2.75 mill/uL (4.7-6.1); RED CELL DISTRIBUTION WIDTH 21.3 % (11.6-14.6)
[2019-03-17 06:56] LABS: INR 1.4; PROTHROMBIN TIME 14.6 sec (9.6-11.0)
[2019-03-17] MEDS ORDERED: BISACODYL 10MG SUPP PR PRN (07:00)
[2019-03-17] MEDS: METOCLOPRAMIDE HCL 10MG/2ML VIAL IV SCH ×2 (11:18→11:32)
== END 2019-03-17 17:15 | DRG 811 ==
LOC: ER 20:07 → 8WST 03-13 00:25 → EDBEDREQTM 03-13 00:29 → EDBEDREQ 03-13 00:29 → ENRESERV 03-13 02:31
PROVIDERS: ADMIT Internal Medicine; ATTEND Internal Medicine
PROC: 0DB68ZX Excision of Stomach, Via Natural or Artificial Opening Endoscopic, Diagnostic (ICD-10-PCS; principal; 2019-03-13)
PROC: 0DJD8ZZ Inspection of Lower Intestinal Tract, Via Natural or Artificial Opening Endoscopic (ICD-10-PCS; 2019-03-13)
PROC: 30233N1 Transfusion of Nonautologous Red Blood Cells into Peripheral Vein, Percutaneous Approach (ICD-10-PCS; 2019-03-13)
DX: D50.0 Iron deficiency anemia secondary to blood loss (chronic) (principal); N17.0 Acute kidney failure with tubular necrosis; I48.92 Unspecified atrial flutter; I13.0 Hypertensive heart and chronic kidney disease with heart failure and stage 1 through stage 4 chronic kidney disease, or unspecified chronic kidney disease; E87.0 Hyperosmolality and hypernatremia; D68.9 Coagulation defect, unspecified; E44.0 Moderate protein-calorie malnutrition; I48.91 Unspecified atrial fibrillation; E87.5 Hyperkalemia; J44.9 Chronic obstructive pulmonary disease, unspecified; N18.9 Chronic kidney disease, unspecified; K29.70 Gastritis, unspecified, without bleeding; E16.2 Hypoglycemia, unspecified; I50.9 Heart failure, unspecified; K76.0 Fatty (change of) liver, not elsewhere classified; K57.90 Diverticulosis of intestine, part unspecified, without perforation or abscess without bleeding; E78.1 Pure hyperglyceridemia; E78.5 Hyperlipidemia, unspecified; I27.20 Pulmonary hypertension, unspecified; I34.0 Nonrheumatic mitral (valve) insufficiency; I48.0 Paroxysmal atrial fibrillation; K22.2 Esophageal obstruction; K29.50 Unspecified chronic gastritis without bleeding; K43.9 Ventral hernia without obstruction or gangrene; K44.9 Diaphragmatic hernia without obstruction or gangrene; K57.30 Diverticulosis of large intestine without perforation or abscess without bleeding; Z95.2 Presence of prosthetic heart valve; Z79.01 Long term (current) use of anticoagulants
CPT/HCPCS: 36415; 71045; 74018; 76770; 80048; 80305; 81003; 82270; 82550; 82553; 82607; 82728; 82746; 82962; 83540; 83550; 83880; 84484; 85014; 85018; 85044; 86850; 86900; 86920; 88305; 88313; 93005; 93306; 93970; 99285; J1815; J1940; J2250; J2405; J2704; J2765; J3490; J7030; J7040; J7042; J7050; J7070; P9016

== ENCOUNTER 2019-03-22 23:04 | Inpatient (IN) | payer MEDICARE, MEDICAID ==
[~2019-03-22] VITALS: Ht 165.1 cm; Wt 73.5 kg
[2019-03-22] MEDS ORDERED: METHYLPREDNISOLONE SOD SUCC 125 MG/2 ML VIAL IV STA (23:26)
[2019-03-22] MEDS ORDERED: ALBUTEROL (0.083%) 2.5MG/3ML NEB HHN STA (23:26)
[2019-03-22] MEDS ORDERED: ONDANSETRON HCL 4MG/2ML INJ IV STA (23:26)
[2019-03-22] MEDS ORDERED: IPRATROPIUM BROMIDE (0.02%) 0.5MG/2.5ML NEB HHN STA (23:26)
[2019-03-22] MEDS ORDERED: DILTIAZEM HCL 5MG/ML 5ML VIAL IV ONE (23:30)
[2019-03-22] MEDS ORDERED: MAGNESIUM 2 G PREMIX 50 ML IV ONE (23:30)
[2019-03-22 23:59] LABS: BASOPHILS % 0.8 % (0.0-2.0); EOSINOPHILS % 2.4 % (0.0-5.0); HEMATOCRIT. 26.8 % (42.0-52.0); HEMOGLOBIN. 8.6 g/dL (14.0-18.0); MEAN CORPUSCULAR HEMOGLOBIN 27.4 pg (28.0-32.0); MEAN CORPUSCULAR VOLUME 85.6 fL (80.0-94.0); MEAN PLATELET VOLUME 8.1 fl (7.4-10.4); MONOCYTES % 11.4 % (2.0-8.0); NEUTROPHILS % 77.4 % (40.0-76.0); PLATELET 170 x1000/uL (130-400); RED BLOOD CELL COUNT 3.13 mill/uL (4.7-6.1); RED CELL DISTRIBUTION WIDTH 21.2 % (11.6-14.6)
[2019-03-23] VITALS (20 sets, daily range): BP systolic 103–131; BP diastolic 56–91
[2019-03-23 00:04] LABS: CHLORIDE 110 mEq/L (98-107)
[2019-03-23 00:05] LABS: INR 1.4
[2019-03-23] MEDS ORDERED: DILTIAZEM HCL 125 MG in DEXT 5% WATER 100 ML IV ONE (02:00)
[2019-03-23] MEDS ORDERED: ACETAMINOPHEN 325MG TABLET PO PRN (06:30)
[2019-03-23] MEDS: OMEPRAZOLE 20MG CAPSULE EXTENDED RELEASE PO SCH ×2 (07:45→20:47)
[2019-03-23] MEDS ORDERED: DOCUSATE SODIUM 250MG CAPSULE PO NR (08:00)
[2019-03-23] MEDS: GUAIFENESIN 600MG ER TABLET PO SCH ×2 (08:21→20:47)
[2019-03-23 10:22] LABS: INR 1.5; PROTHROMBIN TIME 14.7 sec (9.6-11.0)
[2019-03-23] MEDS: METHYLPREDNISOLONE SOD SUCC 40 MG/ML VIAL IV SCH ×2 (10:39→17:34)
[2019-03-23] MEDS ORDERED: DILTIAZEM HCL 60MG TABLET PO SCH (12:00)
[2019-03-23] MEDS: IPRATROPIUM/ALBUTEROL 0.5-3(2.5)MG/3ML NEB HHN SCH ×2 (12:30→21:52)
[2019-03-23] MEDS: DILTIAZEM HCL 90MG TABLET PO SCH ×3 (13:14→22:45)
[2019-03-23] MEDS: WARFARIN SODIUM 4MG TABLET PO SCH (17:35)
[2019-03-24] VITALS (14 sets, daily range): BP systolic 91–135; BP diastolic 45–102
[2019-03-24] MEDS ORDERED: METOPROLOL TARTRATE 25MG TABLET PO SCH
[2019-03-24] MEDS: METOPROLOL TARTRATE 25MG TABLET PO SCH ×3 (00:28→20:56)
[2019-03-24] MEDS: IPRATROPIUM/ALBUTEROL 0.5-3(2.5)MG/3ML NEB HHN SCH ×4 (02:09→20:40)
[2019-03-24] MEDS: METHYLPREDNISOLONE SOD SUCC 40 MG/ML VIAL IV SCH ×3 (02:41→18:17)
[2019-03-24 06:23] LABS: HEMATOCRIT. 23.9 % (42.0-52.0); HEMOGLOBIN. 7.5 g/dL (14.0-18.0); MEAN CORPUSCULAR VOLUME 86.3 fL (80.0-94.0); MEAN PLATELET VOLUME 8.4 fl (7.4-10.4); PLATELET 142 x1000/uL (130-400); RED BLOOD CELL COUNT 2.76 mill/uL (4.7-6.1); RED CELL DISTRIBUTION WIDTH 20.7 % (11.6-14.6)
[2019-03-24 06:24] LABS: INR 2.1; PROTHROMBIN TIME 21.3 sec (9.6-11.0)
[2019-03-24] MEDS: OMEPRAZOLE 20MG CAPSULE EXTENDED RELEASE PO SCH ×2 (06:58→20:56)
[2019-03-24] MEDS: GUAIFENESIN 600MG ER TABLET PO SCH ×2 (08:06→20:56)
[2019-03-24] MEDS ORDERED: PANT40TA4 PO (08:45)
[2019-03-24] MEDS ORDERED: FUROSEMIDE 40MG/4ML VIAL IVP NR (08:45)
[2019-03-24] MEDS ORDERED: LACTULOSE 20G/30ML UDC PO PRN (08:54)
[2019-03-24] MEDS: LEVOFLOXACIN 250MG PREMIX 50 ML IV SCH (10:03)
[2019-03-24] MEDS ORDERED: SODIUM POLYSTYRENE SULFONATE 15 G/60 ML BOT PO SCH (11:00)
[2019-03-24 12:38] LABS: INR 2.2; PROTHROMBIN TIME 21.7 sec (9.6-11.0)
[2019-03-24] MEDS: DILTIAZEM HCL 90MG TABLET PO SCH ×2 (13:06→20:57)
[2019-03-24] MEDS: WARFARIN SODIUM 4MG TABLET PO SCH (18:16)
[2019-03-24 19:38] LABS: PLATELET ESTIMATE NORMAL
[2019-03-24] MEDS ORDERED: MEDICATION NOT ON FORMULARY EA (Travoprost (Travatan Z) 1 DROP) EACHEYE SCH (21:00)
[2019-03-24] MEDS: LATANOPROST 0.005% OPHTH DROPS 2.5ML EACHEYE SCH (21:49)
[2019-03-25] VITALS (19 sets, daily range): BP systolic 100–134; BP diastolic 45–75
[2019-03-25] MEDS: METHYLPREDNISOLONE SOD SUCC 40 MG/ML VIAL IV SCH ×3 (01:23→17:33)
[2019-03-25] MEDS: IPRATROPIUM/ALBUTEROL 0.5-3(2.5)MG/3ML NEB HHN SCH ×5 (01:37→20:45)
[2019-03-25] MEDS: DILTIAZEM HCL 90MG TABLET PO SCH ×3 (06:00→21:22)
[2019-03-25] MEDS: OMEPRAZOLE 20MG CAPSULE EXTENDED RELEASE PO SCH (06:25)
[2019-03-25] MEDS ORDERED: MEDICATION NOT ON FORMULARY EA (Pantoprazole Sodium 40 MG) PO SCH (06:50)
[2019-03-25 07:14] LABS: INR 2.7; PROTHROMBIN TIME 26.7 sec (9.6-11.0)
[2019-03-25 07:17] LABS: HEMATOCRIT. 22.9 % (42.0-52.0); HEMOGLOBIN. 7.4 g/dL (14.0-18.0); MEAN CORPUSCULAR HEMOGLOBIN 27.7 pg (28.0-32.0); MEAN CORPUSCULAR VOLUME 85.5 fL (80.0-94.0); MEAN PLATELET VOLUME 9.1 fl (7.4-10.4); PLATELET 139 x1000/uL (130-400); RED BLOOD CELL COUNT 2.68 mill/uL (4.7-6.1); RED CELL DISTRIBUTION WIDTH 20.3 % (11.6-14.6)
[2019-03-25] MEDS: METOPROLOL TARTRATE 25MG TABLET PO SCH ×2 (09:00→21:22)
[2019-03-25] MEDS ORDERED: DILTIAZEM HCL 90MG TABLET PO NR (09:15)
[2019-03-25] MEDS: GUAIFENESIN 600MG ER TABLET PO SCH ×2 (10:06→21:22)
[2019-03-25 10:14] LABS: PLATELET ESTIMATE NORMAL
[2019-03-25] MEDS: LEVOFLOXACIN 250MG PREMIX 50 ML IV SCH (10:19)
[2019-03-25] MEDS: WARFARIN SODIUM 4MG TABLET PO SCH (17:33)
[2019-03-25] MEDS: LATANOPROST 0.005% OPHTH DROPS 2.5ML EACHEYE SCH (21:34)
[2019-03-26] VITALS (9 sets, daily range): BP systolic 103–129; BP diastolic 58–78
[2019-03-26] MEDS: IPRATROPIUM/ALBUTEROL 0.5-3(2.5)MG/3ML NEB HHN SCH ×2 (02:20→08:35)
[2019-03-26] MEDS: DILTIAZEM HCL 90MG TABLET PO SCH ×2 (05:26→14:01)
[2019-03-26] MEDS ORDERED: METHYLPREDNISOLONE SOD SUCC 40 MG/ML VIAL IV SCH (06:00)
[2019-03-26 06:18] LABS: HEMATOCRIT. 24.8 % (42.0-52.0); MEAN CORPUSCULAR HEMOGLOBIN 27.7 pg (28.0-32.0); MEAN CORPUSCULAR VOLUME 86.3 fL (80.0-94.0); PLATELET 140 x1000/uL (130-400); RED BLOOD CELL COUNT 2.87 mill/uL (4.7-6.1); RED CELL DISTRIBUTION WIDTH 20.8 % (11.6-14.6)
[2019-03-26 06:19] LABS: INR 3.6; PROTHROMBIN TIME 35.1 sec (9.6-11.0)
[2019-03-26 06:43] LABS: PHOSPHORUS 3.1 mg/dL (2.5-4.9)
[2019-03-26] MEDS: GUAIFENESIN 600MG ER TABLET PO SCH (08:28)
[2019-03-26] MEDS: METOPROLOL TARTRATE 25MG TABLET PO SCH (08:30)
[2019-03-26] MEDS ORDERED: FAMOTIDINE 20MG TABLET PO SCH (09:00)
[2019-03-26 09:19] LABS: PLATELET ESTIMATE NORMAL
[2019-03-26] MEDS ORDERED: LEVOFLOXACIN 250MG TABLET PO SCH (11:00)
[2019-03-26] MEDS ORDERED: WARFARIN SODIUM 4MG TABLET PO SCH (18:00)
== END 2019-03-26 16:34 | DRG 291 ==
LOC: ER 23:38 → 3WST 03-23 01:51 → EDBEDREQSVC 03-23 01:53 → EDBEDREQ 03-23 01:53 → EDBEDREQDT 03-23 01:53 → EDBEDREQTM 03-23 01:53 → ENRESERV 03-23 02:07
PROVIDERS: ADMIT Internal Medicine; ATTEND Internal Medicine
DX: I13.0 Hypertensive heart and chronic kidney disease with heart failure and stage 1 through stage 4 chronic kidney disease, or unspecified chronic kidney disease (principal); N17.0 Acute kidney failure with tubular necrosis; J96.20 Acute and chronic respiratory failure, unspecified whether with hypoxia or hypercapnia; I50.23 Acute on chronic systolic (congestive) heart failure; E43 Unspecified severe protein-calorie malnutrition; I48.1 Persistent atrial fibrillation; J44.1 Chronic obstructive pulmonary disease with (acute) exacerbation; I42.9 Cardiomyopathy, unspecified; D64.9 Anemia, unspecified; E11.22 Type 2 diabetes mellitus with diabetic chronic kidney disease; E87.5 Hyperkalemia; I27.20 Pulmonary hypertension, unspecified; K43.9 Ventral hernia without obstruction or gangrene; K59.00 Constipation, unspecified; N18.9 Chronic kidney disease, unspecified; Z79.01 Long term (current) use of anticoagulants; Z95.2 Presence of prosthetic heart valve; Z86.73 Personal history of transient ischemic attack (TIA), and cerebral infarction without residual deficits; Z87.891 Personal history of nicotine dependence; Z88.0 Allergy status to penicillin; Z68.27 Body mass index [BMI] 27.0-27.9, adult; Z79.899 Other long term (current) drug therapy
CPT/HCPCS: 36415; 71045; 74018; 80048; 83605; 83735; 83880; 84100; 84484; 93005; 94640; J1940; J1956; J2405; J2920; J2930; J3475; J3490; J7050; J7060; J7611; J7620

== ENCOUNTER 2019-05-31 12:52 | Inpatient (IN) | payer MEDICARE, MEDICAID ==
[~2019-05-31] VITALS: Ht 165.1 cm; Wt 76.3 kg
[~2019-05-31 12:52] MED LIST changes: -WARF4TAB40 PO; -WARF5TAB76 PO
[2019-05-31 14:21] LABS: HEMATOCRIT. 30.6 % (42.0-52.0); HEMOGLOBIN. 9.4 g/dL (14.0-18.0); MEAN CORPUSCULAR HEMOGLOBIN 25.8 pg (28.0-32.0); MEAN CORPUSCULAR VOLUME 84.2 fL (80.0-94.0); MEAN PLATELET VOLUME 8.5 fl (7.4-10.4); PLATELET 203 x1000/uL (130-400); RED BLOOD CELL COUNT 3.64 mill/uL (4.7-6.1); RED CELL DISTRIBUTION WIDTH 18.5 % (11.6-14.6)
[2019-05-31 14:29] LABS: CHLORIDE 106 mEq/L (98-107)
[2019-05-31 14:52] LABS: PLATELET ESTIMATE NORMAL
[2019-05-31 16:50] LABS: INR 2.3; PROTHROMBIN TIME 22.6 sec (9.6-11.0)
[2019-05-31] MEDS ORDERED: FUROSEMIDE 20MG/2ML VIAL IVP ONE (17:00)
[2019-05-31] MEDS ORDERED: DILTIAZEM HCL 30MG TABLET PO NR (18:15)
[2019-05-31] MEDS ORDERED: DIGOXIN 500MCG/2ML AMP IV SCH (18:15)
[2019-05-31 20:52] VITALS: BP 146/66
[2019-05-31 21:00] VITALS: BP 98/67
[2019-05-31 22:00] VITALS: BP 114/69
[2019-05-31 22:54] VITALS: BP 98/67
[2019-05-31] MEDS ORDERED: ACETAMINOPHEN 650MG/20.3ML UDC PO PRN (23:15)
[2019-05-31] MEDS ORDERED: IPRATROPIUM/ALBUTEROL 0.5-3(2.5)MG/3ML NEB HHN PRN (23:15)
[2019-06-01] VITALS (65 sets, daily range): BP systolic 88–146; BP diastolic 54–94
[2019-06-01] MEDS ORDERED: DILTIAZEM HCL 30MG TABLET PO SCH
[2019-06-01] MEDS ORDERED: DILTIAZEM HCL 60MG TABLET PO SCH ×2 (00:51→06:00)
[2019-06-01] MEDS ORDERED: DILTIAZEM HCL 30MG TABLET PO NR (01:00)
[2019-06-01] MEDS: IPRATROPIUM/ALBUTEROL 0.5-3(2.5)MG/3ML NEB HHN SCH ×2 (01:45→09:35)
[2019-06-01] MEDS ORDERED: DILTIAZEM HCL 5MG/ML 5ML VIAL IV SCH ×2 (04:13→06:00)
[2019-06-01 06:40] LABS: INR 2.5; PROTHROMBIN TIME 24.4 sec (9.6-11.0)
[2019-06-01 06:48] LABS: CHLORIDE 106 mEq/L (98-107)
[2019-06-01 06:54] LABS: HEMATOCRIT. 29.6 % (42.0-52.0); HEMOGLOBIN. 9.1 g/dL (14.0-18.0); MEAN CORPUSCULAR HEMOGLOBIN 25.9 pg (28.0-32.0); MEAN CORPUSCULAR VOLUME 83.9 fL (80.0-94.0); MEAN PLATELET VOLUME 8.7 fl (7.4-10.4); PLATELET 221 x1000/uL (130-400); RED BLOOD CELL COUNT 3.52 mill/uL (4.7-6.1); RED CELL DISTRIBUTION WIDTH 18.3 % (11.6-14.6)
[2019-06-01 07:26] LABS: DIGOXIN 0.5 ng/mL (0.9-2.0)
[2019-06-01] MEDS ORDERED: DIGOXIN 500MCG/2ML AMP IV NR ×2 (08:45→11:00)
[2019-06-01] MEDS ORDERED: LEVOFLOXACIN 250MG PREMIX 50 ML IV SCH (09:15)
[2019-06-01] MEDS: DILTIAZEM HCL 125 MG in DEXT 5% WATER 100 ML IV SCH ×2 (10:24→21:34)
[2019-06-01 10:28] LABS: BG BASE EXCESS 0.9 mmol/L (-2.0-2.0); BG CARBOXYHEMOGLOBIN 0.6 % (0.5-1.5); BG DEOXYHEMOGLOBIN 4.6 % (0.0-5.0); BG FRACTION INSPIRED OXYGEN 32; BG HCO3 ACT 26.1 mmol/L (22.0-26.0); BG METHEMOGLOBIN 0.6 % (0.0-1.5); BG OXYGEN SATURATION 95.3 % (92.0-98.5); BG OXYHEMOGLOBIN 94.2 % (94.0-97.0); BG PCO2 44.7 mmHg (35.0-45.0); BG PH 7.385 (7.350-7.450); BG PO2 82.3 mmHg (75.0-100.0); BG SAMPLE SITE RIGHT RADIAL; BG TOTAL HEMOGLOBIN 9.7 g/dL (12.0-18.0); BG VENT MODE NASAL CANNULA
[2019-06-01] MEDS: FUROSEMIDE 100MG/10ML VIAL IVP SCH (10:36)
[2019-06-01] MEDS ORDERED: IPRATROPIUM BROMIDE (0.02%) 0.5MG/2.5ML NEB HHN PRN (11:15)
[2019-06-01] MEDS: METHYLPREDNISOLONE SOD SUCC 40 MG/ML VIAL IV SCH ×2 (11:40→20:01)
[2019-06-01] MEDS: LEVOFLOXACIN 250MG PREMIX 50 ML IV SCH (11:40)
[2019-06-01 12:41] LABS: PLATELET ESTIMATE NORMAL
[2019-06-01] MEDS: IPRATROPIUM BROMIDE (0.02%) 0.5MG/2.5ML NEB HHN SCH ×3 (13:00→21:25)
[2019-06-01 13:40] LABS: CREATINE KINASE 87 IU/L (39-308)
[2019-06-01] MEDS: DIGOXIN 500MCG/2ML AMP IV SCH (17:14)
[2019-06-01] MEDS ORDERED: WARFARIN SODIUM 3MG TABLET PO SCH (18:00)
[2019-06-01] MEDS: DOCUSATE SODIUM 250MG CAPSULE PO SCH (20:01)
[2019-06-01] MEDS ORDERED: METO25TA6 MT (20:34)
[2019-06-01] MEDS ORDERED: WARF3TAB28 MT (20:36)
[2019-06-01] MEDS ORDERED: WARF4TAB40 MT (20:39)
[2019-06-01] MEDS ORDERED: POTA8TAB8 PO (20:42)
[2019-06-02] VITALS (94 sets, daily range): BP systolic 96–151; BP diastolic 31–91
[2019-06-02] MEDS: IPRATROPIUM BROMIDE (0.02%) 0.5MG/2.5ML NEB HHN SCH ×6 (01:12→20:50)
[2019-06-02] MEDS: METHYLPREDNISOLONE SOD SUCC 40 MG/ML VIAL IV SCH ×3 (03:24→20:41)
[2019-06-02 06:45] LABS: HEMATOCRIT. 27.4 % (42.0-52.0); HEMOGLOBIN. 8.5 g/dL (14.0-18.0); MEAN CORPUSCULAR HEMOGLOBIN 25.9 pg (28.0-32.0); MEAN CORPUSCULAR VOLUME 83.8 fL (80.0-94.0); MEAN PLATELET VOLUME 8.9 fl (7.4-10.4); PLATELET 191 x1000/uL (130-400); RED BLOOD CELL COUNT 3.27 mill/uL (4.7-6.1); RED CELL DISTRIBUTION WIDTH 18.6 % (11.6-14.6)
[2019-06-02 06:46] LABS: PROTHROMBIN TIME 29.3 sec (9.6-11.0)
[2019-06-02 09:02] LABS: BG BASE EXCESS 3.3 mmol/L (-2.0-2.0); BG CARBOXYHEMOGLOBIN 1.6 % (0.5-1.5); BG FRACTION INSPIRED OXYGEN 21; BG OXYGEN SATURATION 80.7 % (92.0-98.5); BG OXYHEMOGLOBIN 79.4 % (94.0-97.0); BG PCO2 50.1 mmHg (35.0-45.0); BG PO2 47.4 mmHg (75.0-100.0); BG SAMPLE SITE LEFT RADIAL; BG TOTAL HEMOGLOBIN 8.8 g/dL (12.0-18.0); BG VENT MODE ROOM AIR
[2019-06-02] MEDS ORDERED: IPRATROPIUM BROMIDE (0.02%) 0.5MG/2.5ML NEB HHN PRN ×2 (09:45→10:00)
[2019-06-02] MEDS: FUROSEMIDE 100MG/10ML VIAL IVP SCH ×2 (09:48→17:53)
[2019-06-02 10:36] LABS: PLATELET ESTIMATE NORMAL
[2019-06-02 10:53] LABS: BG BASE EXCESS 2.8 mmol/L (-2.0-2.0); BG CARBOXYHEMOGLOBIN 0.9 % (0.5-1.5); BG DEOXYHEMOGLOBIN 4.7 % (0.0-5.0); BG FRACTION INSPIRED OXYGEN 28; BG HCO3 ACT 29.2 mmol/L (22.0-26.0); BG METHEMOGLOBIN 0.3 % (0.0-1.5); BG OXYGEN SATURATION 95.2 % (92.0-98.5); BG OXYHEMOGLOBIN 94.1 % (94.0-97.0); BG PCO2 54.3 mmHg (35.0-45.0); BG PH 7.348 (7.350-7.450); BG PO2 81.2 mmHg (75.0-100.0); BG SAMPLE SITE LEFT BRACHIAL; BG TOTAL HEMOGLOBIN 9.4 g/dL (12.0-18.0); BG VENT MODE NASAL CPAP
[2019-06-02] MEDS: LEVOFLOXACIN 250MG PREMIX 50 ML IV SCH (11:27)
[2019-06-02] MEDS: DILTIAZEM HCL 125 MG in DEXT 5% WATER 100 ML IV SCH (11:27)
[2019-06-02] MEDS ORDERED: DILTIAZEM HCL 5MG/ML 5ML VIAL IV NR (13:30)
[2019-06-02] MEDS: DIGOXIN 500MCG/2ML AMP IV SCH (17:53)
[2019-06-02] MEDS: WARFARIN SODIUM 2MG TABLET PO SCH (17:54)
[2019-06-02] MEDS: DOCUSATE SODIUM 250MG CAPSULE PO SCH (20:41)
[2019-06-03] VITALS (84 sets, daily range): BP systolic 93–152; BP diastolic 21–96
[2019-06-03] MEDS: DILTIAZEM HCL 125 MG in DEXT 5% WATER 100 ML IV SCH ×3 (00:16→13:40)
[2019-06-03] MEDS: IPRATROPIUM BROMIDE (0.02%) 0.5MG/2.5ML NEB HHN SCH ×6 (00:54→20:44)
[2019-06-03] MEDS: METHYLPREDNISOLONE SOD SUCC 40 MG/ML VIAL IV SCH ×3 (03:40→20:52)
[2019-06-03] MEDS: FUROSEMIDE 100MG/10ML VIAL IVP SCH ×2 (06:21→18:05)
[2019-06-03 07:13] LABS: HEMATOCRIT. 29.9 % (42.0-52.0); HEMOGLOBIN. 9.2 g/dL (14.0-18.0); MEAN CORPUSCULAR HEMOGLOBIN 25.7 pg (28.0-32.0); MEAN CORPUSCULAR VOLUME 83.4 fL (80.0-94.0); MEAN PLATELET VOLUME 9.1 fl (7.4-10.4); PLATELET 179 x1000/uL (130-400); RED BLOOD CELL COUNT 3.59 mill/uL (4.7-6.1); RED CELL DISTRIBUTION WIDTH 18.8 % (11.6-14.6)
[2019-06-03 07:58] LABS: INR 3.3; PROTHROMBIN TIME 32.5 sec (9.6-11.0)
[2019-06-03] MEDS ORDERED: LIDOCAINE HCL 1% 20ML VIAL (Pyxis) INJ ONE (10:14)
[2019-06-03] MEDS ORDERED: SODIUM BICARBONATE 4% (2.4MEQ) 5ML VIAL IV ONE (10:14)
[2019-06-03] MEDS ORDERED: DIGOXIN 500MCG/2ML AMP IV SCH ×2 (11:00→14:00)
[2019-06-03] MEDS: LEVOFLOXACIN 250MG PREMIX 50 ML IV SCH (11:31)
[2019-06-03] MEDS ORDERED: DILTIAZEM HCL 5MG/ML 5ML VIAL IV PRN (13:45)
[2019-06-03] MEDS: WARFARIN SODIUM 2MG TABLET PO SCH (18:05)
[2019-06-03] MEDS: DIGOXIN 500MCG/2ML AMP IV SCH (18:06)
[2019-06-03 19:56] LABS: PLATELET ESTIMATE NORMAL
[2019-06-03] MEDS: DOCUSATE SODIUM 250MG CAPSULE PO SCH (20:52)
[2019-06-04] VITALS (43 sets, daily range): BP systolic 101–151; BP diastolic 48–84
[2019-06-04] MEDS: IPRATROPIUM BROMIDE (0.02%) 0.5MG/2.5ML NEB HHN SCH ×6 (00:41→20:57)
[2019-06-04] MEDS: METHYLPREDNISOLONE SOD SUCC 40 MG/ML VIAL IV SCH ×3 (03:16→20:41)
[2019-06-04 05:47] LABS: INR 3.5; PROTHROMBIN TIME 34.2 sec (9.6-11.0)
[2019-06-04 05:49] LABS: HEMATOCRIT. 25.3 % (42.0-52.0); MEAN CORPUSCULAR HEMOGLOBIN 25.8 pg (28.0-32.0); MEAN CORPUSCULAR VOLUME 81.8 fL (80.0-94.0); MEAN PLATELET VOLUME 8.7 fl (7.4-10.4); PLATELET 184 x1000/uL (130-400); RED BLOOD CELL COUNT 3.09 mill/uL (4.7-6.1); RED CELL DISTRIBUTION WIDTH 18.7 % (11.6-14.6)
[2019-06-04 08:16] LABS: PLATELET ESTIMATE NORMAL
[2019-06-04] MEDS: FUROSEMIDE 100MG/10ML VIAL IVP SCH (08:29)
[2019-06-04] MEDS: FUROSEMIDE 40MG/4ML VIAL IV SCH (10:00)
[2019-06-04] MEDS ORDERED: LORAZEPAM 2MG/ML CPJ IV NR (10:30)
[2019-06-04] MEDS ORDERED: LEVOFLOXACIN 250MG PREMIX 50 ML IV SCH (11:00)
[2019-06-04] MEDS: LEVOFLOXACIN 250MG TABLET PO SCH (11:21)
[2019-06-04] MEDS: DILTIAZEM HCL 125 MG in DEXT 5% WATER 100 ML IV SCH (12:33)
[2019-06-04] MEDS: DILTIAZEM HCL 30MG TABLET PO SCH ×3 (12:39→23:37)
[2019-06-04] MEDS: DIGOXIN 500MCG/2ML AMP IV SCH (17:17)
[2019-06-04] MEDS: DOCUSATE SODIUM 250MG CAPSULE PO SCH (20:43)
[2019-06-05] VITALS (48 sets, daily range): BP systolic 97–147; BP diastolic 47–82
[2019-06-05] MEDS: IPRATROPIUM BROMIDE (0.02%) 0.5MG/2.5ML NEB HHN SCH ×6 (01:09→21:40)
[2019-06-05] MEDS: METHYLPREDNISOLONE SOD SUCC 40 MG/ML VIAL IV SCH ×3 (03:15→20:44)
[2019-06-05] MEDS: DILTIAZEM HCL 125 MG in DEXT 5% WATER 100 ML IV SCH ×2 (05:30→22:23)
[2019-06-05] MEDS: DILTIAZEM HCL 30MG TABLET PO SCH ×3 (05:30→17:49)
[2019-06-05 06:01] LABS: HEMATOCRIT. 28.2 % (42.0-52.0); HEMOGLOBIN. 8.9 g/dL (14.0-18.0); MEAN CORPUSCULAR HEMOGLOBIN 25.7 pg (28.0-32.0); MEAN CORPUSCULAR VOLUME 81.4 fL (80.0-94.0); MEAN PLATELET VOLUME 8.5 fl (7.4-10.4); PLATELET 202 x1000/uL (130-400); RED BLOOD CELL COUNT 3.46 mill/uL (4.7-6.1); RED CELL DISTRIBUTION WIDTH 18.4 % (11.6-14.6)
[2019-06-05 06:03] LABS: CHLORIDE 99 mEq/L (98-107)
[2019-06-05 06:30] LABS: INR 2.9; PROTHROMBIN TIME 28.6 sec (9.6-11.0)
[2019-06-05 08:43] LABS: BG BASE EXCESS 7.9 mmol/L (-2.0-2.0); BG CARBOXYHEMOGLOBIN 0.3 % (0.5-1.5); BG DEOXYHEMOGLOBIN 2.2 % (0.0-5.0); BG FRACTION INSPIRED OXYGEN 32; BG HCO3 ACT 33.9 mmol/L (22.0-26.0); BG METHEMOGLOBIN 0.9 % (0.0-1.5); BG OXYGEN SATURATION 97.8 % (92.0-98.5); BG OXYHEMOGLOBIN 96.6 % (94.0-97.0); BG PCO2 54.9 mmHg (35.0-45.0); BG PH 7.408 (7.350-7.450); BG PO2 108.3 mmHg (75.0-100.0); BG SAMPLE SITE RIGHT BRACHIAL; BG TOTAL HEMOGLOBIN 10.5 g/dL (12.0-18.0); BG VENT MODE NASAL CANNULA
[2019-06-05] MEDS: FUROSEMIDE 40MG/4ML VIAL IV SCH (09:17)
[2019-06-05] MEDS: LEVOFLOXACIN 250MG TABLET PO SCH (11:26)
[2019-06-05 14:29] LABS: PLATELET ESTIMATE NORMAL
[2019-06-05] MEDS: DOCUSATE SODIUM 250MG CAPSULE PO SCH (20:44)
[2019-06-06] VITALS (48 sets, daily range): BP systolic 98–151; BP diastolic 56–92
[2019-06-06] MEDS: DILTIAZEM HCL 30MG TABLET PO SCH ×5 (00:17→23:22)
[2019-06-06] MEDS: IPRATROPIUM BROMIDE (0.02%) 0.5MG/2.5ML NEB HHN SCH ×6 (01:23→19:59)
[2019-06-06] MEDS: METHYLPREDNISOLONE SOD SUCC 40 MG/ML VIAL IV SCH ×3 (03:19→20:43)
[2019-06-06 06:16] LABS: CHLORIDE 100 mEq/L (98-107)
[2019-06-06 06:24] LABS: HEMATOCRIT. 28.8 % (42.0-52.0); HEMOGLOBIN. 8.9 g/dL (14.0-18.0); MEAN CORPUSCULAR HEMOGLOBIN 25.7 pg (28.0-32.0); MEAN CORPUSCULAR VOLUME 82.8 fL (80.0-94.0); MEAN PLATELET VOLUME 8.6 fl (7.4-10.4); PLATELET 173 x1000/uL (130-400); RED BLOOD CELL COUNT 3.48 mill/uL (4.7-6.1); RED CELL DISTRIBUTION WIDTH 18.2 % (11.6-14.6)
[2019-06-06 06:27] LABS: INR 2.3; PROTHROMBIN TIME 22.7 sec (9.6-11.0)
[2019-06-06] MEDS: FUROSEMIDE 40MG/4ML VIAL IV SCH (09:13)
[2019-06-06] MEDS: LEVOFLOXACIN 250MG TABLET PO SCH (11:42)
[2019-06-06 13:43] LABS: PLATELET ESTIMATE NORMAL
[2019-06-06] MEDS: DILTIAZEM HCL 125 MG in DEXT 5% WATER 100 ML IV SCH (17:23)
[2019-06-06] MEDS: DOCUSATE SODIUM 250MG CAPSULE PO SCH (20:43)
[2019-06-07] VITALS (31 sets, daily range): BP systolic 116–151; BP diastolic 29–98
[2019-06-07] MEDS: IPRATROPIUM BROMIDE (0.02%) 0.5MG/2.5ML NEB HHN SCH ×6 (00:22→20:39)
[2019-06-07] MEDS: METHYLPREDNISOLONE SOD SUCC 40 MG/ML VIAL IV SCH ×3 (03:22→20:54)
[2019-06-07] MEDS: DILTIAZEM HCL 30MG TABLET PO SCH (05:09)
[2019-06-07 06:59] LABS: CHLORIDE 100 mEq/L (98-107); HEMATOCRIT. 27.2 % (42.0-52.0); HEMOGLOBIN. 8.4 g/dL (14.0-18.0); MEAN CORPUSCULAR HEMOGLOBIN 25.5 pg (28.0-32.0); MEAN CORPUSCULAR VOLUME 83.1 fL (80.0-94.0); MEAN PLATELET VOLUME 8.3 fl (7.4-10.4); PLATELET 168 x1000/uL (130-400); RED BLOOD CELL COUNT 3.28 mill/uL (4.7-6.1); RED CELL DISTRIBUTION WIDTH 18.2 % (11.6-14.6)
[2019-06-07 07:35] LABS: INR 1.7; PROTHROMBIN TIME 16.8 sec (9.6-11.0)
[2019-06-07] MEDS ORDERED: DEXT 5%/0.45% NACL 1000ML 1,000 ML IV SCH ×2 (10:00→11:00)
[2019-06-07] MEDS ORDERED: HEPARIN SODIUM 1,000 UNIT/1ML VIAL IV ONE (10:42)
[2019-06-07] MEDS: DILTIAZEM HCL 125 MG in DEXT 5% WATER 100 ML IV SCH (10:58)
[2019-06-07] MEDS: LEVOFLOXACIN 250MG TABLET PO SCH (11:00)
[2019-06-07] MEDS ORDERED: SODIUM POLYSTYRENE SULFONATE 15 G/60 ML BOT PO SCH (11:00)
[2019-06-07] MEDS ORDERED: CLINDAMYCIN IV SCH (11:30)
[2019-06-07] MEDS ORDERED: [UNRECOGNIZED DRUG - OTHER] IV SCH (11:30)
[2019-06-07] MEDS ORDERED: IODIXANOL 320MG/ML 100 ML BOTTLE IV ONE (11:32)
[2019-06-07] MEDS ORDERED: GENTAMICIN/NS IRRIGATION 500 ML IR ONE (11:32)
[2019-06-07] MEDS ORDERED: LIDOCAINE HCL 1% 20ML VIAL (Pyxis) INJ ONE ×2 (11:32→15:52)
[2019-06-07] MEDS ORDERED: GENTAMICIN SULF 40MG/ML 2ML VIAL ONE (11:32)
[2019-06-07] MEDS ORDERED: FENTANYL CITRATE/PF 50MCG/ML 2ML VIAL ONE ×4 (11:52→15:53)
[2019-06-07] MEDS ORDERED: MIDAZOLAM HCL 2 MG/2 ML VIAL ONE ×3 (11:53→15:53)
[2019-06-07] MEDS ORDERED: DIPHENHYDRAMINE 50MG/ML VIAL ONE (11:53)
[2019-06-07] MEDS: ACETYLCYSTEINE 100MG/ML 10% VIAL 4ML INH SCH (14:00)
[2019-06-07] MEDS ORDERED: HYDROCODONE/ACETAMINOPHEN 5/325MG TABLET PO PRN (15:30)
[2019-06-07 16:42] LABS: PLATELET ESTIMATE NORMAL
[2019-06-07] MEDS ORDERED: HYDROMORPHONE HCL/PF 2MG/ML CPJ IV PRN (18:00)
[2019-06-07] MEDS: DOCUSATE SODIUM 250MG CAPSULE PO SCH (20:54)
[2019-06-08] VITALS (46 sets, daily range): BP systolic 107–166; BP diastolic 27–125
[2019-06-08] MEDS: ACETYLCYSTEINE 100MG/ML 10% VIAL 4ML INH SCH ×3 (00:46→15:49)
[2019-06-08] MEDS: IPRATROPIUM BROMIDE (0.02%) 0.5MG/2.5ML NEB HHN SCH ×6 (00:46→20:00)
[2019-06-08] MEDS: METHYLPREDNISOLONE SOD SUCC 40 MG/ML VIAL IV SCH ×3 (03:48→20:09)
[2019-06-08 06:02] LABS: CHLORIDE 107 mEq/L (98-107); INR 1.7; PROTHROMBIN TIME 16.6 sec (9.6-11.0)
[2019-06-08 06:07] LABS: PHOSPHORUS 3.9 mg/dL (2.5-4.9)
[2019-06-08 06:22] LABS: HEMATOCRIT. 26.5 % (42.0-52.0); HEMOGLOBIN. 8.2 g/dL (14.0-18.0); MEAN CORPUSCULAR HEMOGLOBIN 25.6 pg (28.0-32.0); MEAN CORPUSCULAR VOLUME 82.6 fL (80.0-94.0); MEAN PLATELET VOLUME 8.3 fl (7.4-10.4); PLATELET 149 x1000/uL (130-400); RED BLOOD CELL COUNT 3.21 mill/uL (4.7-6.1); RED CELL DISTRIBUTION WIDTH 18.5 % (11.6-14.6)
[2019-06-08] MEDS ORDERED: WARFARIN SODIUM 5MG TABLET PO NR (08:30)
[2019-06-08] MEDS: LEVOFLOXACIN 250MG TABLET PO SCH (11:52)
[2019-06-08 15:57] LABS: PLATELET ESTIMATE NORMAL
[2019-06-08 17:44] LABS: BG BASE EXCESS 6.2 mmol/L (-2.0-2.0); BG CARBOXYHEMOGLOBIN 1.2 % (0.5-1.5); BG DEOXYHEMOGLOBIN 2.6 % (0.0-5.0); BG FRACTION INSPIRED OXYGEN 32; BG HCO3 ACT 32.2 mmol/L (22.0-26.0); BG METHEMOGLOBIN 0.2 % (0.0-1.5); BG OXYGEN SATURATION 97.4 % (92.0-98.5); BG PCO2 54.4 mmHg (35.0-45.0); BG PO2 101.3 mmHg (75.0-100.0); BG SAMPLE SITE RIGHT BRACHIAL; BG TOTAL HEMOGLOBIN 9.7 g/dL (12.0-18.0); BG VENT MODE NASAL CPAP
[2019-06-08] MEDS: DOCUSATE SODIUM 250MG CAPSULE PO SCH (20:10)
[2019-06-09] VITALS (27 sets, daily range): BP systolic 97–151; BP diastolic 31–97
[2019-06-09] MEDS: IPRATROPIUM BROMIDE (0.02%) 0.5MG/2.5ML NEB HHN SCH ×6 (00:33→20:36)
[2019-06-09] MEDS: ACETYLCYSTEINE 100MG/ML 10% VIAL 4ML INH SCH ×3 (00:33→16:36)
[2019-06-09] MEDS: METHYLPREDNISOLONE SOD SUCC 40 MG/ML VIAL IV SCH ×3 (04:57→21:31)
[2019-06-09 06:56] LABS: INR 1.7; PROTHROMBIN TIME 16.9 sec (9.6-11.0)
[2019-06-09] MEDS ORDERED: FUROSEMIDE 40MG/4ML VIAL IVP NR (10:15)
[2019-06-09] MEDS: DOCUSATE SODIUM 250MG CAPSULE PO SCH (21:26)
[2019-06-09] MEDS: WARFARIN SODIUM 4MG TABLET PO SCH (21:27)
[2019-06-10] VITALS (20 sets, daily range): BP systolic 109–152; BP diastolic 40–89
[2019-06-10] MEDS: ACETYLCYSTEINE 100MG/ML 10% VIAL 4ML INH SCH ×4 (00:27→23:53)
[2019-06-10] MEDS: IPRATROPIUM BROMIDE (0.02%) 0.5MG/2.5ML NEB HHN SCH ×7 (00:27→23:53)
[2019-06-10] MEDS: METHYLPREDNISOLONE SOD SUCC 40 MG/ML VIAL IV SCH ×3 (04:22→21:20)
[2019-06-10 06:05] LABS: INR 1.8; PROTHROMBIN TIME 17.9 sec (9.6-11.0)
[2019-06-10 06:14] LABS: HEMATOCRIT. 27.7 % (42.0-52.0); HEMOGLOBIN. 8.6 g/dL (14.0-18.0); MEAN CORPUSCULAR HEMOGLOBIN 25.7 pg (28.0-32.0); MEAN CORPUSCULAR VOLUME 82.9 fL (80.0-94.0); MEAN PLATELET VOLUME 8.3 fl (7.4-10.4); PLATELET 138 x1000/uL (130-400); RED BLOOD CELL COUNT 3.34 mill/uL (4.7-6.1); RED CELL DISTRIBUTION WIDTH 18.5 % (11.6-14.6)
[2019-06-10 06:17] LABS: CHLORIDE 104 mEq/L (98-107)
[2019-06-10] MEDS ORDERED: SODIUM POLYSTYRENE SULFONATE 15 G/60 ML BOT PO SCH (10:00)
[2019-06-10 13:44] LABS: PLATELET ESTIMATE NORMAL
[2019-06-10] MEDS: WARFARIN SODIUM 4MG TABLET PO SCH (17:43)
[2019-06-10] MEDS: DOCUSATE SODIUM 250MG CAPSULE PO SCH (21:20)
[2019-06-11] VITALS (9 sets, daily range): BP systolic 101–140; BP diastolic 44–80
[2019-06-11] MEDS: METHYLPREDNISOLONE SOD SUCC 40 MG/ML VIAL IV SCH ×2 (04:21→12:00)
[2019-06-11] MEDS: IPRATROPIUM BROMIDE (0.02%) 0.5MG/2.5ML NEB HHN SCH ×3 (04:46→12:13)
[2019-06-11 06:23] LABS: INR 2.1; PROTHROMBIN TIME 20.7 sec (9.6-11.0)
[2019-06-11 06:28] LABS: HEMATOCRIT. 26.8 % (42.0-52.0); HEMOGLOBIN. 8.5 g/dL (14.0-18.0); MEAN CORPUSCULAR HEMOGLOBIN 26.3 pg (28.0-32.0); MEAN PLATELET VOLUME 8.7 fl (7.4-10.4); PLATELET 145 x1000/uL (130-400); RED BLOOD CELL COUNT 3.23 mill/uL (4.7-6.1); RED CELL DISTRIBUTION WIDTH 18.8 % (11.6-14.6)
[2019-06-11 06:56] LABS: CHLORIDE 106 mEq/L (98-107)
[2019-06-11] MEDS: ACETYLCYSTEINE 100MG/ML 10% VIAL 4ML INH SCH (09:11)
[2019-06-11] MEDS ORDERED: WARFARIN SODIUM 3MG TABLET PO ONE (11:15)
[2019-06-11] MEDS ORDERED: WARFARIN SODIUM 3MG TABLET PO NR (11:45)
[2019-06-11] MEDS ORDERED: INFLUENZA VIRUS VACCINE(AFLURIA) 0.5ML SYR IM ONE (12:00)
[2019-06-11 12:27] LABS: BG BASE EXCESS 7.3 mmol/L (-2.0-2.0); BG CARBOXYHEMOGLOBIN 1.1 % (0.5-1.5); BG DEOXYHEMOGLOBIN 6.6 % (0.0-5.0); BG FRACTION INSPIRED OXYGEN 21; BG METHEMOGLOBIN 0.3 % (0.0-1.5); BG OXYGEN SATURATION 93.3 % (92.0-98.5); BG PCO2 46.1 mmHg (35.0-45.0); BG PH 7.459 (7.350-7.450); BG SAMPLE SITE RIGHT RADIAL; BG TOTAL HEMOGLOBIN 9.6 g/dL (12.0-18.0); BG VENT MODE ROOM AIR
[2019-06-12 14:57] LABS: PLATELET ESTIMATE NORMAL
== END 2019-06-11 14:07 | DRG 242 ==
LOC: ER 12:52 → 5EST 14:41 → ENRESERV 19:40 → 5EST 06-01 09:50 → 3WST 06-09 11:30
PROVIDERS: ADMIT Internal Medicine; ATTEND Internal Medicine
PROC: 02HV33Z Insertion of Infusion Device into Superior Vena Cava, Percutaneous Approach (ICD-10-PCS; 2019-06-03)
PROC: B548ZZA Ultrasonography of Superior Vena Cava, Guidance (ICD-10-PCS; 2019-06-03)
PROC: 0JH607Z Insertion of Cardiac Resynchronization Pacemaker Pulse Generator into Chest Subcutaneous Tissue and Fascia, Open Approach (ICD-10-PCS; principal; 2019-06-07)
PROC: 02H43JZ Insertion of Pacemaker Lead into Coronary Vein, Percutaneous Approach (ICD-10-PCS; 2019-06-07)
PROC: 02H63JZ Insertion of Pacemaker Lead into Right Atrium, Percutaneous Approach (ICD-10-PCS; 2019-06-07)
PROC: 02HK3JZ Insertion of Pacemaker Lead into Right Ventricle, Percutaneous Approach (ICD-10-PCS; 2019-06-07)
PROC: B51NYZA Fluoroscopy of Left Upper Extremity Veins using Other Contrast, Guidance (ICD-10-PCS; 2019-06-07)
PROC: 4A023N6 Measurement of Cardiac Sampling and Pressure, Right Heart, Percutaneous Approach (ICD-10-PCS; 2019-06-07)
DX: I44.2 Atrioventricular block, complete (principal); J96.21 Acute and chronic respiratory failure with hypoxia; J18.9 Pneumonia, unspecified organism; J96.22 Acute and chronic respiratory failure with hypercapnia; I50.43 Acute on chronic combined systolic (congestive) and diastolic (congestive) heart failure; I13.0 Hypertensive heart and chronic kidney disease with heart failure and stage 1 through stage 4 chronic kidney disease, or unspecified chronic kidney disease; J44.1 Chronic obstructive pulmonary disease with (acute) exacerbation; D68.59 Other primary thrombophilia; N17.9 Acute kidney failure, unspecified; E46 Unspecified protein-calorie malnutrition; E87.4 Mixed disorder of acid-base balance; J44.0 Chronic obstructive pulmonary disease with (acute) lower respiratory infection; J98.19 Other pulmonary collapse; I42.9 Cardiomyopathy, unspecified; I48.92 Unspecified atrial flutter; I47.1 Supraventricular tachycardia; I48.1 Persistent atrial fibrillation; I27.21 Secondary pulmonary arterial hypertension; I34.0 Nonrheumatic mitral (valve) insufficiency; D64.9 Anemia, unspecified; K43.9 Ventral hernia without obstruction or gangrene; N18.9 Chronic kidney disease, unspecified; K21.9 Gastro-esophageal reflux disease without esophagitis; I48.0 Paroxysmal atrial fibrillation; E87.5 Hyperkalemia; F32.9 Major depressive disorder, single episode, unspecified; E78.5 Hyperlipidemia, unspecified; M54.5 Low back pain; G89.29 Other chronic pain; M19.90 Unspecified osteoarthritis, unspecified site; T50.2X5A Adverse effect of carbonic-anhydrase inhibitors, benzothiadiazides and other diuretics, initial encounter; Z91.19 Patient's noncompliance with other medical treatment and regimen; Y92.89 Other specified places as the place of occurrence of the external cause; Z95.2 Presence of prosthetic heart valve; Z87.891 Personal history of nicotine dependence; Z86.718 Personal history of other venous thrombosis and embolism; Z79.01 Long term (current) use of anticoagulants; Z79.899 Other long term (current) drug therapy; Z68.28 Body mass index [BMI] 28.0-28.9, adult; Z88.0 Allergy status to penicillin
CPT/HCPCS: 33208; 33225; 36415; 36600; 71045; 71250; 75820; 76770; 76937; 80048; 80162; 82375; 82550; 82805; 83735; 83880; 84100; 84443; 84484; 90686; 93005; 93306; 93451; 93650; 94640; 99291; C1725; C1731; C1732; C1758; C1769; C1887; C1892; C1893; C1898; C1900; J1160; J1200; J1580; J1644; J1940; J1956; J2250; J2920; J3010; J3490; J7040; J7060; J7608; J7620; Q9967

== ENCOUNTER 2020-03-15 21:03 | Inpatient (IN) | payer MEDICARE, MEDICAID ==
[~2020-03-15] VITALS: Ht 170.2 cm; Wt 72.6 kg
[~2020-03-15 21:03] MED LIST changes: -DIGO125T82 PO; -DILT30TA38 MT; -DILT60TA35 PO; -DOCU250C14 PO; -FURO-151 PO; -FURO20TA4 PO; -METO5TAB69 PO; -PANT40TA4 PO; -POTA25TA13 PO; -PRED10TA23 PO; +WARF4TAB40 MT
[2020-03-15] MEDS ORDERED: ALBUTEROL (0.083%) 2.5MG/3ML NEB HHN STA (21:10)
[2020-03-15] MEDS ORDERED: ONDANSETRON HCL 4MG/2ML INJ IV STA (21:10)
[2020-03-15] MEDS ORDERED: IPRATROPIUM BROMIDE (0.02%) 0.5MG/2.5ML NEB HHN STA (21:10)
[2020-03-15] MEDS ORDERED: ASPIRIN 81MG TABLET PO ONE (21:15)
[2020-03-15 21:40] LABS: BG BASE EXCESS 0.8 mmol/L (-2.0-2.0); BG CARBOXYHEMOGLOBIN 1.2 % (0.5-1.5); BG DEOXYHEMOGLOBIN 5.3 % (0.0-5.0); BG FRACTION INSPIRED OXYGEN 36; BG HCO3 ACT 26.3 mmol/L (22.0-26.0); BG METHEMOGLOBIN 0.2 % (0.0-1.5); BG OXYGEN SATURATION 94.6 % (92.0-98.5); BG OXYHEMOGLOBIN 93.3 % (94.0-97.0); BG PCO2 46.6 mmHg (35.0-45.0); BG PO2 76.2 mmHg (75.0-100.0); BG SAMPLE SITE RIGHT RADIAL; BG TOTAL HEMOGLOBIN 9.8 g/dL (12.0-18.0); BG VENT MODE NASAL CANNULA
[2020-03-15 21:57] LABS: EOSINOPHILS % 3.8 % (0.0-5.0); HEMATOCRIT. 32.8 % (42.0-52.0); HEMOGLOBIN. 10.5 g/dL (14.0-18.0); LYMPHOCYTES % 17.1 % (20.0-50.0); MEAN CORPUSCULAR HEMOGLOBIN 30.7 pg (28.0-32.0); MEAN CORPUSCULAR VOLUME 95.7 fL (80.0-94.0); MEAN PLATELET VOLUME 9.1 fl (7.4-10.4); MONOCYTES % 8.8 % (2.0-8.0); NEUTROPHILS % 69.3 % (40.0-76.0); PLATELET 197 x1000/uL (130-400); RED BLOOD CELL COUNT 3.43 mill/uL (4.7-6.1); RED CELL DISTRIBUTION WIDTH 17.1 % (11.6-14.6)
[2020-03-15 22:04] LABS: CHLORIDE 109 mEq/L (98-107)
[2020-03-15] MEDS ORDERED: HALOPERIDOL LACTATE 5MG/ML VIAL IM ONE (22:15)
[2020-03-15 22:27] LABS: INR 2.3; PARTIAL THROMBOPLASTIN TIME 41.8 sec (23.4-31.0); PROTHROMBIN TIME 23.5 sec (9.6-11.0)
[2020-03-15] MEDS ORDERED: FUROSEMIDE 40MG/4ML VIAL IVP NR (22:45)
[2020-03-16] VITALS (9 sets, daily range): BP systolic 120–136; BP diastolic 60–83
[2020-03-16] MEDS ORDERED: IPRATROPIUM BROMIDE (0.02%) 0.5MG/2.5ML NEB HHN SCH (07:30)
[2020-03-16] MEDS ORDERED: POTASSIUM CHLORIDE 8 MEQ TABLET.SA PO SCH (09:00)
[2020-03-16] MEDS ORDERED: FUROSEMIDE 40MG TABLET PO SCH (09:00)
[2020-03-16] MEDS ORDERED: SODIUM POLYSTYRENE SULFONATE 15 G/60 ML BOT PO NR (13:00)
[2020-03-16 13:22] LABS: BASOPHILS % 1.6 % (0.0-2.0); EOSINOPHILS % 4.1 % (0.0-5.0); HEMATOCRIT. 29.3 % (42.0-52.0); HEMOGLOBIN. 9.6 g/dL (14.0-18.0); LYMPHOCYTES % 12.7 % (20.0-50.0); MEAN CORPUSCULAR HEMOGLOBIN 31.7 pg (28.0-32.0); MEAN CORPUSCULAR VOLUME 96.4 fL (80.0-94.0); MEAN PLATELET VOLUME 8.8 fl (7.4-10.4); MONOCYTES % 10.3 % (2.0-8.0); NEUTROPHILS % 71.3 % (40.0-76.0); PLATELET 197 x1000/uL (130-400); RED BLOOD CELL COUNT 3.04 mill/uL (4.7-6.1); RED CELL DISTRIBUTION WIDTH 17.1 % (11.6-14.6)
[2020-03-16 13:55] LABS: CHLORIDE 106 mEq/L (98-107)
[2020-03-16] MEDS: DILTIAZEM HCL 60MG TABLET PO SCH ×2 (14:37→22:38)
[2020-03-16] MEDS: CEFTRIAXONE 1 G PREMIX 50 ML IV SCH (17:12)
[2020-03-16] MEDS: AZITHROMYCIN 500 MG in DEXT 5% WATER 250 ML IV SCH (17:44)
[2020-03-16] MEDS: FUROSEMIDE 40MG/4ML VIAL IVP SCH (17:44)
[2020-03-16] MEDS ORDERED: WARFARIN SODIUM 5MG TABLET PO SCH (18:00)
[2020-03-16] MEDS: ALBUTEROL 6.7GM HFA INHALER ORI SCH (21:10)
[2020-03-16] MEDS: LATANOPROST 0.005% OPHTH DROPS 2.5ML EACHEYE SCH (22:38)
[2020-03-17] VITALS (8 sets, daily range): BP systolic 89–130; BP diastolic 48–79
[2020-03-17] MEDS: ALBUTEROL 6.7GM HFA INHALER ORI SCH ×4 (02:15→23:00)
[2020-03-17] MEDS: FUROSEMIDE 40MG/4ML VIAL IVP SCH ×2 (06:19→16:29)
[2020-03-17] MEDS: DILTIAZEM HCL 60MG TABLET PO SCH ×3 (06:20→21:40)
[2020-03-17 08:04] LABS: BASOPHILS % 0.9 % (0.0-2.0); EOSINOPHILS % 5.6 % (0.0-5.0); HEMATOCRIT. 28.2 % (42.0-52.0); HEMOGLOBIN. 9.4 g/dL (14.0-18.0); LYMPHOCYTES % 12.7 % (20.0-50.0); MEAN CORPUSCULAR VOLUME 93.1 fL (80.0-94.0); MEAN PLATELET VOLUME 8.5 fl (7.4-10.4); MONOCYTES % 12.2 % (2.0-8.0); NEUTROPHILS % 68.6 % (40.0-76.0); PLATELET 204 x1000/uL (130-400); RED BLOOD CELL COUNT 3.03 mill/uL (4.7-6.1); RED CELL DISTRIBUTION WIDTH 17.1 % (11.6-14.6)
[2020-03-17 08:10] LABS: INR 3.3; PROTHROMBIN TIME 32.9 sec (9.6-11.0)
[2020-03-17 08:31] LABS: CHLORIDE 106 mEq/L (98-107)
[2020-03-17] MEDS: AZITHROMYCIN 500 MG in DEXT 5% WATER 250 ML IV SCH (15:47)
[2020-03-17] MEDS: CEFTRIAXONE 1 G PREMIX 50 ML IV SCH (15:48)
[2020-03-17] MEDS: LOSARTAN POTASSIUM 25 MG TABLET PO SCH (17:15)
[2020-03-17] MEDS ORDERED: WARFARIN SODIUM 2.5MG TABLET PO SCH (18:00)
[2020-03-17] MEDS: ACETAMINOPHEN 325MG TABLET PO PRN (21:39)
[2020-03-17] MEDS: LATANOPROST 0.005% OPHTH DROPS 2.5ML EACHEYE SCH (21:41)
[2020-03-18] VITALS: BP 125/72
[2020-03-18 04:00] VITALS: BP 131/71
[2020-03-18] MEDS: FUROSEMIDE 40MG/4ML VIAL IVP SCH ×2 (06:19→17:48)
[2020-03-18] MEDS: DILTIAZEM HCL 60MG TABLET PO SCH ×3 (06:19→22:05)
[2020-03-18 08:00] VITALS: BP 121/65
[2020-03-18 09:31] LABS: BASOPHILS % 1.2 % (0.0-2.0); EOSINOPHILS % 6.2 % (0.0-5.0); HEMATOCRIT. 30.3 % (42.0-52.0); HEMOGLOBIN. 9.9 g/dL (14.0-18.0); LYMPHOCYTES % 17.6 % (20.0-50.0); MEAN CORPUSCULAR HEMOGLOBIN 30.5 pg (28.0-32.0); MEAN CORPUSCULAR VOLUME 93.1 fL (80.0-94.0); MEAN PLATELET VOLUME 8.5 fl (7.4-10.4); MONOCYTES % 11.7 % (2.0-8.0); NEUTROPHILS % 63.3 % (40.0-76.0); PLATELET 236 x1000/uL (130-400); RED BLOOD CELL COUNT 3.25 mill/uL (4.7-6.1); RED CELL DISTRIBUTION WIDTH 17.2 % (11.6-14.6)
[2020-03-18 09:39] LABS: CHLORIDE 105 mEq/L (98-107)
[2020-03-18 09:40] LABS: INR 3.8; PROTHROMBIN TIME 37.7 sec (9.6-11.0)
[2020-03-18] MEDS: LOSARTAN POTASSIUM 25 MG TABLET PO SCH (10:08)
[2020-03-18 12:00] VITALS: BP 111/58
[2020-03-18 16:00] VITALS: BP 108/63
[2020-03-18] MEDS: CEFTRIAXONE 1 G PREMIX 50 ML IV SCH (16:10)
[2020-03-18] MEDS: AZITHROMYCIN 500 MG in DEXT 5% WATER 250 ML IV SCH (16:11)
[2020-03-18 20:00] VITALS: BP 100/50
[2020-03-18] MEDS: LATANOPROST 0.005% OPHTH DROPS 2.5ML EACHEYE SCH (21:58)
[2020-03-19] VITALS (7 sets, daily range): BP systolic 98–123; BP diastolic 50–70
[2020-03-19] MEDS: DILTIAZEM HCL 60MG TABLET PO SCH ×3 (06:00→22:00)
[2020-03-19] MEDS: FUROSEMIDE 40MG/4ML VIAL IVP SCH (07:55)
[2020-03-19 08:48] LABS: HEMATOCRIT 27.7 % (42.0-52.0); MEAN CORPUSCULAR HEMOGLOBIN 30.4 pg (28.0-32.0); MEAN CORPUSCULAR VOLUME 93.9 fL (80.0-94.0); PLATELET 229 x1000/uL (130-400); RED BLOOD CELL COUNT 2.95 mill/uL (4.7-6.1); RED CELL DISTRIBUTION WIDTH 17.1 % (11.6-14.6)
[2020-03-19 08:58] LABS: PROTHROMBIN TIME 31.7 sec (9.6-11.0)
[2020-03-19] MEDS: LOSARTAN POTASSIUM 25 MG TABLET PO SCH (09:01)
[2020-03-19] MEDS: CEFTRIAXONE 1 G PREMIX 50 ML IV SCH (16:32)
[2020-03-19] MEDS: AZITHROMYCIN 500 MG in DEXT 5% WATER 250 ML IV SCH (16:32)
[2020-03-19] MEDS: FUROSEMIDE 20MG/2ML VIAL IVP SCH (17:58)
[2020-03-19] MEDS ORDERED: WARFARIN SODIUM 2.5MG TABLET PO NR (18:00)
[2020-03-19] MEDS: LATANOPROST 0.005% OPHTH DROPS 2.5ML EACHEYE SCH (20:40)
[2020-03-20] VITALS (7 sets, daily range): BP systolic 103–122; BP diastolic 53–61
[2020-03-20] MEDS: DILTIAZEM HCL 60MG TABLET PO SCH ×3 (06:19→20:44)
[2020-03-20 06:35] LABS: INR 2.9; PROTHROMBIN TIME 28.7 sec (9.6-11.0)
[2020-03-20] MEDS: LOSARTAN POTASSIUM 25 MG TABLET PO SCH (08:44)
[2020-03-20] MEDS: FUROSEMIDE 20MG/2ML VIAL IVP SCH ×2 (08:52→17:03)
[2020-03-20] MEDS ORDERED: METOLAZONE 2.5MG TABLET PO SCH (12:00)
[2020-03-20] MEDS: CEFTRIAXONE 1 G PREMIX 50 ML IV SCH (16:15)
[2020-03-20] MEDS: AZITHROMYCIN 500 MG in DEXT 5% WATER 250 ML IV SCH (17:03)
[2020-03-20] MEDS ORDERED: WARFARIN SODIUM 4MG TABLET PO SCH (18:00)
[2020-03-20] MEDS: LATANOPROST 0.005% OPHTH DROPS 2.5ML EACHEYE SCH (20:44)
[2020-03-20] MEDS: ACETAMINOPHEN 325MG TABLET PO PRN (20:46)
[2020-06-18] MEDS ORDERED: WARF5TAB76 PO (23:09)
[2020-06-18] MEDS ORDERED: ALBU6.7H9 INH (23:09)
[2020-06-18] MEDS ORDERED: LOSA25TA3 PO (23:09)
[2020-06-18] MEDS ORDERED: XALAO EACHEYE (23:09)
[2020-06-18] MEDS ORDERED: FOLI-43 PO (23:09)
[2020-06-18] MEDS ORDERED: FERR325T6 PO (23:09)
[2020-06-18] MEDS ORDERED: DILT30TA38 PO (23:09)
== END 2020-03-20 21:15 | DRG 291 ==
LOC: ER 21:11 → MICUSO 23:33 → 5EST 03-16 08:10 → 7WST 03-16 21:58 → 5WST 03-17 23:40
PROVIDERS: ADMIT Internal Medicine; ATTEND Internal Medicine
PROC: 5A09357 Assistance with Respiratory Ventilation, Less than 24 Consecutive Hours, Continuous Positive Airway Pressure (ICD-10-PCS; principal; 2020-03-15)
PROC: 5A09357 Assistance with Respiratory Ventilation, Less than 24 Consecutive Hours, Continuous Positive Airway Pressure (ICD-10-PCS; 2020-03-16)
DX: I13.0 Hypertensive heart and chronic kidney disease with heart failure and stage 1 through stage 4 chronic kidney disease, or unspecified chronic kidney disease (principal); I50.23 Acute on chronic systolic (congestive) heart failure; J96.01 Acute respiratory failure with hypoxia; E43 Unspecified severe protein-calorie malnutrition; J84.9 Interstitial pulmonary disease, unspecified; I48.92 Unspecified atrial flutter; J44.1 Chronic obstructive pulmonary disease with (acute) exacerbation; I42.0 Dilated cardiomyopathy; K21.9 Gastro-esophageal reflux disease without esophagitis; N18.9 Chronic kidney disease, unspecified; D64.9 Anemia, unspecified; I07.1 Rheumatic tricuspid insufficiency; D72.810 Lymphocytopenia; E87.5 Hyperkalemia; G40.909 Epilepsy, unspecified, not intractable, without status epilepticus; I27.20 Pulmonary hypertension, unspecified; I48.0 Paroxysmal atrial fibrillation; Z95.2 Presence of prosthetic heart valve; Z95.0 Presence of cardiac pacemaker; Z87.891 Personal history of nicotine dependence; Z79.01 Long term (current) use of anticoagulants; Z86.718 Personal history of other venous thrombosis and embolism; Z68.25 Body mass index [BMI] 25.0-25.9, adult; Z88.0 Allergy status to penicillin; Z03.818 Encounter for observation for suspected exposure to other biological agents ruled out; Z90.49 Acquired absence of other specified parts of digestive tract
CPT/HCPCS: 36415; 36600; 71045; 71046; 80048; 80053; 82270; 82375; 82805; 83880; 84484; 85025; 85027; 93005; 93306; 94640; 94660; 99291; J0456; J0696; J1940; J7060; U0003-CS

== ENCOUNTER 2020-12-18 10:54 | Inpatient (IN) | payer MEDICARE, MEDICAID ==
[~2020-12-18] VITALS: Ht 165.1 cm; Wt 87.1 kg
[2020-12-18 12:23] LABS: BASOPHILS % 1.1 % (0.0-2.0); EOSINOPHILS % 3.7 % (0.0-5.0); HEMATOCRIT. 27.8 % (42.0-52.0); HEMOGLOBIN. 8.9 g/dL (14.0-18.0); LYMPHOCYTES % 7.1 % (20.0-50.0); MEAN CORPUSCULAR HEMOGLOBIN 30.8 pg (28.0-32.0); MEAN CORPUSCULAR VOLUME 96.1 fL (80.0-94.0); MEAN PLATELET VOLUME 8.5 fl (7.4-10.4); MONOCYTES % 8.9 % (2.0-8.0); NEUTROPHILS % 79.2 % (40.0-76.0); PLATELET 186 x1000/uL (130-400); RED BLOOD CELL COUNT 2.89 mill/uL (4.7-6.1); RED CELL DISTRIBUTION WIDTH 18.6 % (11.6-14.6)
[2020-12-18 12:30] LABS: CHLORIDE 115 mEq/L (98-107)
[2020-12-18] MEDS ORDERED: FUROSEMIDE 100MG/10ML VIAL IV STA (12:51)
[2020-12-18] MEDS ORDERED: CALCIUM CHLORIDE 1GM/10ML SYR IV ONE (13:00)
[2020-12-18] MEDS ORDERED: DEXTROSE 50% WATER 50ML SYRINGE IV ONE ×2 (13:00→19:30)
[2020-12-18] MEDS ORDERED: ALBUTEROL (0.083%) 2.5MG/3ML NEB HHN ONE (13:00)
[2020-12-18] MEDS ORDERED: INSULIN REGULAR (HUMULIN R) 300UNITS/3ML VIAL IV ONE (13:00)
[2020-12-18] MEDS ORDERED: SODIUM BICARBONATE 8.4% 1 MEQ/ML 50ML SYR IV ONE (13:00)
[2020-12-18] MEDS ORDERED: LIDOCAINE HCL 1% 20ML VIAL (Pyxis) INJ ONE (14:29)
[2020-12-18] MEDS ORDERED: FUROSEMIDE 20MG/2ML VIAL IV SCH (16:00)
[2020-12-18 21:33] LABS: CHLORIDE 115 mEq/L (98-107)
[2020-12-19] VITALS (11 sets, daily range): BP systolic 119–145; BP diastolic 24–84
[2020-12-19 05:28] LABS: BASOPHILS % 0.8 % (0.0-2.0); HEMATOCRIT. 41.3 % (42.0-52.0); HEMOGLOBIN. 14.5 g/dL (14.0-18.0); LYMPHOCYTES % 7.3 % (20.0-50.0); MEAN CORPUSCULAR HEMOGLOBIN 33.7 pg (28.0-32.0); MEAN CORPUSCULAR VOLUME 95.8 fL (80.0-94.0); MEAN PLATELET VOLUME 8.4 fl (7.4-10.4); MONOCYTES % 7.3 % (2.0-8.0); NEUTROPHILS % 84.6 % (40.0-76.0); PLATELET 264 x1000/uL (130-400); RED BLOOD CELL COUNT 4.32 mill/uL (4.7-6.1); RED CELL DISTRIBUTION WIDTH 14.2 % (11.6-14.6)
[2020-12-19 05:32] LABS: CHLORIDE 102 mEq/L (98-107)
[2020-12-19 05:45] LABS: INR 1.1; PROTHROMBIN TIME 11.7 sec (9.6-11.0)
[2020-12-19] MEDS ORDERED: POTASSIUM CHLORIDE 20MEQ TABLET SR PO NR (07:15)
[2020-12-19] MEDS: LOSARTAN POTASSIUM 100 MG TABLET PO SCH (09:44)
[2020-12-19] MEDS ORDERED: FUROSEMIDE 40MG TABLET PO NR (10:30)
[2020-12-19] MEDS: POTASSIUM CHLORIDE 20MEQ TABLET SR PO SCH (10:40)
[2020-12-19] MEDS ORDERED: MAGNESIUM 2 G PREMIX 50 ML IV NR ×2 (11:00→12:45)
[2020-12-19] MEDS: IPRATROPIUM/ALBUTEROL 0.5-3(2.5)MG/3ML NEB HHN SCH (12:39)
[2020-12-19] MEDS ORDERED: LACTULOSE 20G/30ML UDC PO PRN (14:00)
[2020-12-19] MEDS: MAGNESIUM OXIDE 400MG TABLET PO SCH (14:52)
[2020-12-19] MEDS: DILTIAZEM HCL 30MG TABLET PO SCH ×2 (14:53→21:14)
[2020-12-19] MEDS: ENOXAPARIN 100MG/ML SYR SUBCUT SCH (15:05)
[2020-12-19] MEDS: FUROSEMIDE 40MG/4ML VIAL IVP SCH (16:39)
[2020-12-19] MEDS ORDERED: WARFARIN SODIUM 5MG TABLET PO NR ×2 (18:00)
[2020-12-19] MEDS ORDERED: FUROSEMIDE 40MG TABLET PO SCH (21:00)
[2020-12-20] VITALS (11 sets, daily range): BP systolic 115–155; BP diastolic 37–95
[2020-12-20] MEDS: ENOXAPARIN 100MG/ML SYR SUBCUT SCH ×2 (00:12→12:00)
[2020-12-20] MEDS: IPRATROPIUM/ALBUTEROL 0.5-3(2.5)MG/3ML NEB HHN SCH ×4 (02:07→20:08)
[2020-12-20] MEDS: DILTIAZEM HCL 30MG TABLET PO SCH ×3 (05:09→21:04)
[2020-12-20 05:42] LABS: INR 3.8; PROTHROMBIN TIME 37.1 sec (9.6-11.0)
[2020-12-20] MEDS: FUROSEMIDE 40MG/4ML VIAL IVP SCH (06:15)
[2020-12-20 06:29] LABS: BASOPHILS % 1.2 % (0.0-2.0); EOSINOPHILS % 5.5 % (0.0-5.0); HEMATOCRIT. 27.3 % (42.0-52.0); HEMOGLOBIN. 8.8 g/dL (14.0-18.0); LYMPHOCYTES % 13.2 % (20.0-50.0); MEAN CORPUSCULAR HEMOGLOBIN 30.7 pg (28.0-32.0); MEAN CORPUSCULAR VOLUME 95.6 fL (80.0-94.0); MEAN PLATELET VOLUME 8.7 fl (7.4-10.4); MONOCYTES % 11.8 % (2.0-8.0); NEUTROPHILS % 68.3 % (40.0-76.0); PLATELET 182 x1000/uL (130-400); RED BLOOD CELL COUNT 2.86 mill/uL (4.7-6.1); RED CELL DISTRIBUTION WIDTH 18.2 % (11.6-14.6)
[2020-12-20] MEDS: MAGNESIUM OXIDE 400MG TABLET PO SCH (09:07)
[2020-12-20] MEDS: POTASSIUM CHLORIDE 20MEQ TABLET SR PO SCH (09:07)
[2020-12-20] MEDS: LOSARTAN POTASSIUM 100 MG TABLET PO SCH (09:18)
[2020-12-20] MEDS ORDERED: SODIUM POLYSTYRENE SULFONATE 15 G/60 ML BOT PO NR ×2 (10:30→20:00)
[2020-12-20] MEDS ORDERED: SODIUM BICARBONATE 8.4% 1 MEQ/ML 50ML SYR IV NR ×2 (10:49→18:46)
[2020-12-20] MEDS ORDERED: DEXTROSE 50% WATER 50ML SYRINGE IV NR ×2 (10:49→18:45)
[2020-12-20] MEDS ORDERED: INSULIN REGULAR (HUMULIN R) 300UNITS/3ML VIAL IV NR (10:50)
[2020-12-20] MEDS: SODIUM CHLORIDE 0.9% 1,000 ML IV SCH (17:50)
[2020-12-20] MEDS ORDERED: WARFARIN SODIUM 5MG TABLET PO SCH (18:00)
[2020-12-20] MEDS ORDERED: INSULIN REGULAR (HUMULIN R) UD 100 UNITS/ML SYR IV NR (20:00)
[2020-12-21] VITALS (11 sets, daily range): BP systolic 96–144; BP diastolic 49–79
[2020-12-21] MEDS: IPRATROPIUM/ALBUTEROL 0.5-3(2.5)MG/3ML NEB HHN SCH ×4 (02:03→20:42)
[2020-12-21 05:31] LABS: INR 2.8; PROTHROMBIN TIME 28.1 sec (9.6-11.0)
[2020-12-21] MEDS: DILTIAZEM HCL 30MG TABLET PO SCH ×3 (06:00→20:40)
[2020-12-21 06:25] LABS: BASOPHILS % 1.3 % (0.0-2.0); EOSINOPHILS % 3.9 % (0.0-5.0); HEMATOCRIT. 27.9 % (42.0-52.0); LYMPHOCYTES % 11.6 % (20.0-50.0); MEAN CORPUSCULAR HEMOGLOBIN 30.8 pg (28.0-32.0); MEAN CORPUSCULAR VOLUME 95.3 fL (80.0-94.0); MEAN PLATELET VOLUME 9.1 fl (7.4-10.4); MONOCYTES % 11.2 % (2.0-8.0); PLATELET 198 x1000/uL (130-400); RED BLOOD CELL COUNT 2.92 mill/uL (4.7-6.1); RED CELL DISTRIBUTION WIDTH 18.4 % (11.6-14.6)
[2020-12-21] MEDS: SODIUM CHLORIDE 0.9% 1,000 ML IV SCH (08:55)
[2020-12-21] MEDS: LOSARTAN POTASSIUM 100 MG TABLET PO SCH (08:56)
[2020-12-21] MEDS: MAGNESIUM OXIDE 400MG TABLET PO SCH (08:56)
[2020-12-21] MEDS ORDERED: FUROSEMIDE 40MG TABLET PO SCH (09:00)
[2020-12-22] VITALS: BP 121/58
[2020-12-22] MEDS: IPRATROPIUM/ALBUTEROL 0.5-3(2.5)MG/3ML NEB HHN SCH ×2 (02:42→08:54)
[2020-12-22] MEDS: SODIUM CHLORIDE 0.9% 1,000 ML IV SCH (03:50)
[2020-12-22 03:55] VITALS: BP 130/57
[2020-12-22] MEDS: DILTIAZEM HCL 30MG TABLET PO SCH (05:29)
[2020-12-22 06:06] LABS: BASOPHILS % 1.2 % (0.0-2.0); EOSINOPHILS % 5.7 % (0.0-5.0); HEMATOCRIT. 24.1 % (42.0-52.0); HEMOGLOBIN. 7.7 g/dL (14.0-18.0); LYMPHOCYTES % 16.5 % (20.0-50.0); MEAN CORPUSCULAR HEMOGLOBIN 30.8 pg (28.0-32.0); MEAN CORPUSCULAR VOLUME 96.6 fL (80.0-94.0); MEAN PLATELET VOLUME 8.8 fl (7.4-10.4); MONOCYTES % 13.1 % (2.0-8.0); NEUTROPHILS % 63.5 % (40.0-76.0); PLATELET 150 x1000/uL (130-400); RED CELL DISTRIBUTION WIDTH 18.4 % (11.6-14.6)
[2020-12-22 06:10] LABS: INR 2.4; PROTHROMBIN TIME 24.5 sec (9.6-11.0)
[2020-12-22 08:00] VITALS: BP 132/63
[2020-12-22] MEDS: LOSARTAN POTASSIUM 100 MG TABLET PO SCH (08:30)
[2020-12-22] MEDS: MAGNESIUM OXIDE 400MG TABLET PO SCH (08:31)
[2020-12-22 10:41] VITALS: BP 107/82
[2020-12-22 10:50] VITALS: BP 107/86
[2020-12-22] MEDS ORDERED: WARFARIN SODIUM 2.5MG TABLET PO NR (18:00)
== END 2020-12-22 11:50 | DRG 291 ==
LOC: ER 10:54 → 5EST 13:55 → EDBEDREQ 14:06 → ENRESERV 23:43
PROVIDERS: ADMIT Internal Medicine; ATTEND Internal Medicine
PROC: 02HV33Z Insertion of Infusion Device into Superior Vena Cava, Percutaneous Approach (ICD-10-PCS; principal; 2020-12-18)
PROC: B548ZZA Ultrasonography of Superior Vena Cava, Guidance (ICD-10-PCS; 2020-12-18)
PROC: 5A09357 Assistance with Respiratory Ventilation, Less than 24 Consecutive Hours, Continuous Positive Airway Pressure (ICD-10-PCS; 2020-12-18)
PROC: 5A09357 Assistance with Respiratory Ventilation, Less than 24 Consecutive Hours, Continuous Positive Airway Pressure (ICD-10-PCS; 2020-12-19)
PROC: 5A09357 Assistance with Respiratory Ventilation, Less than 24 Consecutive Hours, Continuous Positive Airway Pressure (ICD-10-PCS; 2020-12-20)
DX: I13.0 Hypertensive heart and chronic kidney disease with heart failure and stage 1 through stage 4 chronic kidney disease, or unspecified chronic kidney disease (principal); I50.23 Acute on chronic systolic (congestive) heart failure; J96.21 Acute and chronic respiratory failure with hypoxia; N17.9 Acute kidney failure, unspecified; I48.19 Other persistent atrial fibrillation; D68.59 Other primary thrombophilia; J44.1 Chronic obstructive pulmonary disease with (acute) exacerbation; I42.0 Dilated cardiomyopathy; E83.42 Hypomagnesemia; I27.20 Pulmonary hypertension, unspecified; E87.5 Hyperkalemia; G89.29 Other chronic pain; K43.9 Ventral hernia without obstruction or gangrene; K21.9 Gastro-esophageal reflux disease without esophagitis; I07.1 Rheumatic tricuspid insufficiency; K59.00 Constipation, unspecified; N18.9 Chronic kidney disease, unspecified; Z79.01 Long term (current) use of anticoagulants; Z86.718 Personal history of other venous thrombosis and embolism; Z86.73 Personal history of transient ischemic attack (TIA), and cerebral infarction without residual deficits; Z95.2 Presence of prosthetic heart valve; Z87.891 Personal history of nicotine dependence; Z88.0 Allergy status to penicillin; Z95.0 Presence of cardiac pacemaker; Z79.899 Other long term (current) drug therapy; D64.9 Anemia, unspecified; F19.11 Other psychoactive substance abuse, in remission
CPT/HCPCS: 36415; 71045; 76937; 80048; 80053; 82962; 83735; 83880; 84132; 84484; 85025; 93005; 94640; 94644; 94660; 99291; C1725; J1650; J1815; J1940; J3475; J3490; J7030

== ENCOUNTER 2021-01-15 10:46 | Inpatient (IN) | payer MEDICARE, MEDICAID ==
[~2021-01-15] VITALS: Ht 165.1 cm; Wt 90.7 kg
[2021-01-15] MEDS ORDERED: IPRATROPIUM BROMIDE (0.02%) 0.5MG/2.5ML NEB HHN STA (11:47)
[2021-01-15] MEDS ORDERED: ALBUTEROL (0.083%) 2.5MG/3ML NEB HHN STA (11:47)
[2021-01-15] MEDS ORDERED: METHYLPREDNISOLONE SOD SUCC 125 MG/2 ML VIAL IV STA (11:47)
[2021-01-15 12:11] LABS: BASOPHILS % 0.9 % (0.0-2.0); EOSINOPHILS % 2.8 % (0.0-5.0); HEMATOCRIT. 27.1 % (42.0-52.0); HEMOGLOBIN. 8.4 g/dL (14.0-18.0); LYMPHOCYTES % 8.1 % (20.0-50.0); MEAN CORPUSCULAR HEMOGLOBIN 31.3 pg (28.0-32.0); MEAN CORPUSCULAR VOLUME 100.4 fL (80.0-94.0); MEAN PLATELET VOLUME 8.7 fl (7.4-10.4); MONOCYTES % 11.2 % (2.0-8.0); PLATELET 186 x1000/uL (130-400); RED CELL DISTRIBUTION WIDTH 20.8 % (11.6-14.6)
[2021-01-15 12:18] LABS: CHLORIDE 113 mEq/L (98-107)
[2021-01-15] MEDS ORDERED: ENALAPRIL 2.5MG/2ML VIAL 2ML IV ONE (13:00)
[2021-01-15] MEDS ORDERED: FUROSEMIDE 40MG/4ML VIAL IVP ONE (13:00)
[2021-01-15] MEDS ORDERED: ENALAPRIL 1.25MG/ML VIAL 1ML IV NR (13:15)
[2021-01-15 14:18] LABS: CHLORIDE 113 mEq/L (98-107)
[2021-01-15] MEDS ORDERED: SODIUM POLYSTYRENE SULFONATE 15 G/60 ML BOT PO NR (17:00)
[2021-01-15] MEDS ORDERED: DEXTROSE 50% WATER 50ML SYRINGE IV NR (20:00)
[2021-01-15] MEDS ORDERED: INSULIN REGULAR (HUMULIN R) 300UNITS/3ML VIAL IV NR (20:00)
[2021-01-15] MEDS ORDERED: SODIUM BICARBONATE 8.4% 1 MEQ/ML 50ML SYR IV NR (20:00)
[2021-01-15 23:29] VITALS: BP 138/66
[2021-01-16] VITALS: BP 138/66
[2021-01-16] MEDS ORDERED: ACETAMINOPHEN 325MG TABLET PO PRN (00:15)
[2021-01-16] MEDS ORDERED: WARF1TAB85 PO (00:22)
[2021-01-16 02:11] LABS: INR 2.2; PROTHROMBIN TIME 22.5 sec (9.6-11.0)
[2021-01-16 04:00] VITALS: BP 115/55
[2021-01-16] MEDS: DILTIAZEM HCL 30MG TABLET PO SCH ×3 (06:06→21:48)
[2021-01-16] MEDS: FERROUS SULFATE 325MG TABLET PO SCH (08:58)
[2021-01-16] MEDS ORDERED: FUROSEMIDE 40MG/4ML VIAL IVP SCH (10:00)
[2021-01-16 11:13] LABS: HEMATOCRIT. 25.2 % (42.0-52.0); HEMOGLOBIN. 7.8 g/dL (14.0-18.0); MEAN CORPUSCULAR HEMOGLOBIN 31.2 pg (28.0-32.0); MEAN CORPUSCULAR VOLUME 100.2 fL (80.0-94.0); MEAN PLATELET VOLUME 9.2 fl (7.4-10.4); PLATELET 181 x1000/uL (130-400); RED BLOOD CELL COUNT 2.51 mill/uL (4.7-6.1); RED CELL DISTRIBUTION WIDTH 20.6 % (11.6-14.6)
[2021-01-16 11:20] LABS: CHLORIDE 112 mEq/L (98-107)
[2021-01-16] MEDS ORDERED: SODIUM BICARBONATE 8.4% 1 MEQ/ML 50ML SYR IV NR (12:00)
[2021-01-16] MEDS ORDERED: DEXTROSE 50% WATER 50ML SYRINGE IV NR (12:00)
[2021-01-16] MEDS ORDERED: INSULIN REGULAR (HUMULIN R) UD 100 UNITS/ML SYR IV NR (12:30)
[2021-01-16 14:18] LABS: PLATELET ESTIMATE NORMAL
[2021-01-16] MEDS ORDERED: SODIUM POLYSTYRENE SULFONATE 15 G/60 ML BOT PO NR (14:30)
[2021-01-16] MEDS: IPRATROPIUM BROMIDE (0.02%) 0.5MG/2.5ML NEB HHN SCH ×2 (15:32→21:35)
[2021-01-16] MEDS ORDERED: WARFARIN SODIUM 3MG TABLET PO SCH (18:00)
[2021-01-16] MEDS ORDERED: WARFARIN SODIUM 5MG TABLET PO NR (18:00)
[2021-01-16 20:00] VITALS: BP 138/97
[2021-01-16 20:01] LABS: CLARITY URINE CLEAR (CLEAR); COLOR URINE YELLOW (YELLOW); KETONES URINE NEGATIVE (NEGATIVE); LEUKOCYTE ESTERASE URINE NEGATIVE (NEGATIVE); NITRITE URINE NEGATIVE (NEGATIVE); OCCULT BLOOD URINE 2+ (NEGATIVE); PROTEIN URINE NEGATIVE (NEGATIVE); SPECIFIC GRAVITY URINE 1.015 (1.005-1.030); UROBILINOGEN URINE 0.2 E.U./dL (0.2-1.0)
[2021-01-17] VITALS: BP 132/84
[2021-01-17] MEDS: IPRATROPIUM BROMIDE (0.02%) 0.5MG/2.5ML NEB HHN SCH ×4 (03:09→21:43)
[2021-01-17 04:00] VITALS: BP 94/54
[2021-01-17] MEDS: DILTIAZEM HCL 30MG TABLET PO SCH (06:00)
[2021-01-17 07:13] LABS: INR 2.9; PROTHROMBIN TIME 28.7 sec (9.6-11.0)
[2021-01-17 07:23] LABS: BASOPHILS % 0.6 % (0.0-2.0); EOSINOPHILS % 1.3 % (0.0-5.0); HEMATOCRIT. 24.8 % (42.0-52.0); HEMOGLOBIN. 7.6 g/dL (14.0-18.0); MEAN CORPUSCULAR HEMOGLOBIN 30.4 pg (28.0-32.0); MEAN CORPUSCULAR VOLUME 99.5 fL (80.0-94.0); MEAN PLATELET VOLUME 8.9 fl (7.4-10.4); NEUTROPHILS % 79.1 % (40.0-76.0); PLATELET 171 x1000/uL (130-400); RED BLOOD CELL COUNT 2.49 mill/uL (4.7-6.1); RED CELL DISTRIBUTION WIDTH 20.4 % (11.6-14.6)
[2021-01-17 07:35] LABS: CHLORIDE 111 mEq/L (98-107)
[2021-01-17] MEDS: FERROUS SULFATE 325MG TABLET PO SCH (08:15)
[2021-01-17 20:00] VITALS: BP 107/55
[2021-01-18] VITALS: BP 110/58
[2021-01-18] MEDS: IPRATROPIUM BROMIDE (0.02%) 0.5MG/2.5ML NEB HHN SCH ×4 (02:12→20:26)
[2021-01-18 04:00] VITALS: BP 108/58
[2021-01-18 07:02] LABS: INR 2.1; PROTHROMBIN TIME 21.5 sec (9.6-11.0)
[2021-01-18 07:06] LABS: BASOPHILS % 1.1 % (0.0-2.0); EOSINOPHILS % 5.1 % (0.0-5.0); HEMATOCRIT. 24.7 % (42.0-52.0); HEMOGLOBIN. 7.7 g/dL (14.0-18.0); LYMPHOCYTES % 13.1 % (20.0-50.0); MEAN CORPUSCULAR VOLUME 98.7 fL (80.0-94.0); MONOCYTES % 11.5 % (2.0-8.0); NEUTROPHILS % 69.2 % (40.0-76.0); PLATELET 167 x1000/uL (130-400); RED CELL DISTRIBUTION WIDTH 19.9 % (11.6-14.6)
[2021-01-18 07:09] LABS: CHLORIDE 113 mEq/L (98-107)
[2021-01-18 08:00] VITALS: BP 144/99
[2021-01-18] MEDS ORDERED: AMLODIPINE 2.5MG TABLET PO SCH (09:00)
[2021-01-18] MEDS: FERROUS SULFATE 325MG TABLET PO SCH (09:23)
[2021-01-18] MEDS ORDERED: FUROSEMIDE 40MG/4ML VIAL IVP NR (09:45)
[2021-01-18 12:00] VITALS: BP 134/73
[2021-01-18] MEDS ORDERED: SODIUM POLYSTYRENE SULFONATE 15 G/60 ML BOT PO NR (13:30)
[2021-01-18] MEDS ORDERED: DILTIAZEM HCL 30MG TABLET PO SCH ×2 (14:00)
[2021-01-18 16:00] VITALS: BP 120/63
[2021-01-18] MEDS ORDERED: WARFARIN SODIUM 5MG TABLET PO NR (18:00)
[2021-01-18] MEDS: DILTIAZEM HCL 30MG TABLET PO SCH (19:03)
[2021-01-18 20:00] VITALS: BP 124/82
[2021-01-19] VITALS: BP 104/55
[2021-01-19] MEDS: IPRATROPIUM BROMIDE (0.02%) 0.5MG/2.5ML NEB HHN SCH ×3 (00:35→14:59)
[2021-01-19 04:00] VITALS: BP 110/60
[2021-01-19] MEDS: DILTIAZEM HCL 30MG TABLET PO SCH ×3 (06:14→12:51)
[2021-01-19 06:15] VITALS: BP 130/70
[2021-01-19 06:34] LABS: BASOPHILS % 1.1 % (0.0-2.0); EOSINOPHILS % 4.4 % (0.0-5.0); HEMATOCRIT. 26.2 % (42.0-52.0); HEMOGLOBIN. 8.2 g/dL (14.0-18.0); LYMPHOCYTES % 12.5 % (20.0-50.0); MEAN CORPUSCULAR HEMOGLOBIN 31.3 pg (28.0-32.0); MEAN CORPUSCULAR VOLUME 100.5 fL (80.0-94.0); PLATELET 151 x1000/uL (130-400); RED BLOOD CELL COUNT 2.61 mill/uL (4.7-6.1); RED CELL DISTRIBUTION WIDTH 20.1 % (11.6-14.6)
[2021-01-19 06:44] LABS: INR 1.8; PROTHROMBIN TIME 18.8 sec (9.6-11.0)
[2021-01-19 06:45] LABS: CHLORIDE 111 mEq/L (98-107)
[2021-01-19] MEDS: FERROUS SULFATE 325MG TABLET PO SCH (10:41)
[2021-01-19] MEDS ORDERED: WARFARIN SODIUM 5MG TABLET PO SCH (18:00)
[2021-01-19 19:45] VITALS: BP 137/68
== END 2021-01-19 20:00 | DRG 291 ==
LOC: ER 10:46 → 8WST 13:34 → EDBEDREQ 13:38 → EDBEDREQTM 13:38 → ENRESERV 22:18
PROVIDERS: ADMIT Internal Medicine; ATTEND Internal Medicine
DX: I13.0 Hypertensive heart and chronic kidney disease with heart failure and stage 1 through stage 4 chronic kidney disease, or unspecified chronic kidney disease (principal); I50.23 Acute on chronic systolic (congestive) heart failure; J96.22 Acute and chronic respiratory failure with hypercapnia; N17.9 Acute kidney failure, unspecified; I48.92 Unspecified atrial flutter; D68.59 Other primary thrombophilia; J44.1 Chronic obstructive pulmonary disease with (acute) exacerbation; K43.9 Ventral hernia without obstruction or gangrene; N18.9 Chronic kidney disease, unspecified; Z68.33 Body mass index [BMI] 33.0-33.9, adult; D64.9 Anemia, unspecified; E11.22 Type 2 diabetes mellitus with diabetic chronic kidney disease; E87.5 Hyperkalemia; G47.33 Obstructive sleep apnea (adult) (pediatric); I25.10 Atherosclerotic heart disease of native coronary artery without angina pectoris; I27.20 Pulmonary hypertension, unspecified; I42.0 Dilated cardiomyopathy; I48.0 Paroxysmal atrial fibrillation; Z20.822 Contact with and (suspected) exposure to COVID-19; Z88.0 Allergy status to penicillin; I25.2 Old myocardial infarction; Z79.01 Long term (current) use of anticoagulants; Z87.891 Personal history of nicotine dependence; Z95.0 Presence of cardiac pacemaker; Z95.2 Presence of prosthetic heart valve
CPT/HCPCS: 36415; 71045; 74018; 80048; 80053; 81003; 82962; 83735; 83880; 84132; 84484; 85025; 87426; 93005; 93306; 94640; 99285; J1815; J1940; J2930; J3490

== ENCOUNTER 2021-07-31 19:04 | Inpatient (IN) | payer MEDICARE, MEDICAID ==
[~2021-07-31] VITALS: Ht 165.1 cm; Wt 84.1 kg
[~2021-07-31 19:04] MED LIST changes: -TRAV2.5D EACHEYE; +WARF-53 PO; -WARF4TAB40 MT
[2021-07-31] MEDS ORDERED: FUROSEMIDE 40MG/4ML VIAL IVP ONE ×2 (21:15→23:45)
[2021-07-31 22:03] LABS: BASOPHILS % 1.4 % (0.0-2.0); EOSINOPHILS % 4.9 % (0.0-5.0); HEMATOCRIT. 28.1 % (42.0-52.0); HEMOGLOBIN. 8.5 g/dL (14.0-18.0); LYMPHOCYTES % 12.1 % (20.0-50.0); MEAN CORPUSCULAR HEMOGLOBIN 31.9 pg (28.0-32.0); MEAN PLATELET VOLUME 9.2 fl (7.4-10.4); MONOCYTES % 12.3 % (2.0-8.0); NEUTROPHILS % 69.3 % (40.0-76.0); PLATELET 148 x1000/uL (130-400); RED BLOOD CELL COUNT 2.65 mill/uL (4.7-6.1); RED CELL DISTRIBUTION WIDTH 19.3 % (11.6-14.6)
[2021-07-31 22:09] LABS: CHLORIDE 107 mEq/L (98-107)
[2021-07-31] MEDS ORDERED: CALCIUM GLUCONATE 100MG/ML 10ML VIAL IV ONE (23:45)
[2021-08-01] VITALS (8 sets, daily range): BP systolic 119–150; BP diastolic 58–78
[2021-08-01] MEDS ORDERED: LACTULOSE 20G/30ML UDC PO PRN (09:45)
[2021-08-01] MEDS ORDERED: SODIUM BICARBONATE 8.4% 1 MEQ/ML 50ML SYR IV NR (10:15)
[2021-08-01] MEDS ORDERED: DEXTROSE 50% WATER 50ML SYRINGE IV NR (10:15)
[2021-08-01] MEDS ORDERED: INSULIN REGULAR (HUMULIN R) UD 100 UNITS/ML SYR IV NR (10:30)
[2021-08-01] MEDS: FERROUS SULFATE 300MG/5ML UDC PO SCH (10:49)
[2021-08-01] MEDS ORDERED: SODIUM POLYSTYRENE SULFONATE 15 G/60 ML BOT PO SCH (11:00)
[2021-08-01] MEDS: IPRATROPIUM BROMIDE (0.02%) 0.5MG/2.5ML NEB HHN SCH ×3 (12:07→20:04)
[2021-08-01] MEDS: DILTIAZEM HCL 30MG TABLET PO SCH ×2 (12:24→17:33)
[2021-08-01 16:39] LABS: INR 1.2; PROTHROMBIN TIME 12.8 sec (9.6-11.0)
[2021-08-01] MEDS: FUROSEMIDE 40MG/4ML VIAL IVP SCH (17:33)
[2021-08-01] MEDS ORDERED: FUROSEMIDE 40 MG/5 ML PO SCH (21:00)
[2021-08-01] MEDS: ATORVASTATIN CALCIUM 10MG TABLET PO SCH (21:36)
[2021-08-02] VITALS (12 sets, daily range): BP systolic 106–140; BP diastolic 47–65
[2021-08-02] MEDS: DILTIAZEM HCL 30MG TABLET PO SCH ×4 (00:14→21:17)
[2021-08-02] MEDS: IPRATROPIUM BROMIDE (0.02%) 0.5MG/2.5ML NEB HHN SCH ×4 (02:09→20:31)
[2021-08-02] MEDS: FUROSEMIDE 40MG/4ML VIAL IVP SCH ×2 (09:08→18:11)
[2021-08-02] MEDS: FERROUS SULFATE 300MG/5ML UDC PO SCH (09:08)
[2021-08-02 10:30] LABS: CHLORIDE 102 mEq/L (98-107)
[2021-08-02] MEDS ORDERED: WARFARIN SODIUM 5MG TABLET PO SCH (18:00)
[2021-08-02] MEDS: ATORVASTATIN CALCIUM 10MG TABLET PO SCH (21:17)
[2021-08-03] VITALS (15 sets, daily range): BP systolic 106–157; BP diastolic 41–87
[2021-08-03] MEDS: IPRATROPIUM BROMIDE (0.02%) 0.5MG/2.5ML NEB HHN SCH ×3 (00:42→22:12)
[2021-08-03] MEDS: DILTIAZEM HCL 30MG TABLET PO SCH ×3 (06:04→21:29)
[2021-08-03 07:35] LABS: INR 1.3; PROTHROMBIN TIME 13.5 sec (9.6-11.0)
[2021-08-03 07:37] LABS: HEMATOCRIT. 22.3 % (42.0-52.0); HEMOGLOBIN. 7.1 g/dL (14.0-18.0); MEAN CORPUSCULAR HEMOGLOBIN 32.4 pg (28.0-32.0); MEAN CORPUSCULAR VOLUME 101.3 fL (80.0-94.0); MEAN PLATELET VOLUME 9.2 fl (7.4-10.4); PLATELET 135 x1000/uL (130-400); RED CELL DISTRIBUTION WIDTH 17.1 % (11.6-14.6)
[2021-08-03] MEDS: FERROUS SULFATE 300MG/5ML UDC PO SCH (09:13)
[2021-08-03] MEDS: FUROSEMIDE 40MG/4ML VIAL IVP SCH (09:13)
[2021-08-03 12:21] LABS: PLATELET ESTIMATE NORMAL
[2021-08-03 19:00] LABS: TOTAL IRON BINDING CAPACITY 221 ug/dL (250-450)
[2021-08-03 19:18] LABS: FOLIC ACID (FOLATE) SERUM 13.3 ng/mL (>5.38)
[2021-08-03] MEDS: ATORVASTATIN CALCIUM 10MG TABLET PO SCH (21:28)
[2021-08-04] VITALS (14 sets, daily range): BP systolic 121–159; BP diastolic 57–96
[2021-08-04] MEDS: IPRATROPIUM BROMIDE (0.02%) 0.5MG/2.5ML NEB HHN SCH ×4 (00:50→19:56)
[2021-08-04 01:50] LABS: HEMATOCRIT 28.6 % (42.0-52.0); HEMOGLOBIN 9.1 g/dL (14.0-18.0)
[2021-08-04] MEDS: DILTIAZEM HCL 30MG TABLET PO SCH ×3 (05:31→22:42)
[2021-08-04 08:24] LABS: HEMATOCRIT. 26.7 % (42.0-52.0); HEMOGLOBIN. 8.5 g/dL (14.0-18.0); MEAN CORPUSCULAR VOLUME 100.2 fL (80.0-94.0); MEAN PLATELET VOLUME 8.8 fl (7.4-10.4); PLATELET 125 x1000/uL (130-400); RED BLOOD CELL COUNT 2.66 mill/uL (4.7-6.1); RED CELL DISTRIBUTION WIDTH 18.7 % (11.6-14.6)
[2021-08-04 08:32] LABS: INR 1.2
[2021-08-04] MEDS: FUROSEMIDE 40MG/4ML VIAL IVP SCH (08:47)
[2021-08-04] MEDS: PANTOPRAZOLE SODIUM 40 MG/VIAL IV SCH ×2 (08:47→17:32)
[2021-08-04] MEDS: FERROUS SULFATE 300MG/5ML UDC PO SCH (08:48)
[2021-08-04 09:03] LABS: CHLORIDE 103 mEq/L (98-107)
[2021-08-04 17:03] LABS: HEMOGLOBIN 8.5 g/dL (14.0-18.0)
[2021-08-04 18:37] LABS: PLATELET ESTIMATE DECREASED
[2021-08-04 20:17] LABS: HEMATOCRIT 26.4 % (42.0-52.0); HEMOGLOBIN 8.4 g/dL (14.0-18.0)
[2021-08-04] MEDS: ATORVASTATIN CALCIUM 10MG TABLET PO SCH (21:22)
[2021-08-05] VITALS (13 sets, daily range): BP systolic 109–149; BP diastolic 54–78
[2021-08-05] MEDS: IPRATROPIUM BROMIDE (0.02%) 0.5MG/2.5ML NEB HHN SCH ×4 (01:30→21:11)
[2021-08-05] MEDS: DILTIAZEM HCL 30MG TABLET PO SCH (05:17)
[2021-08-05 07:21] LABS: INR 1.2; PROTHROMBIN TIME 13.1 sec (9.6-11.0)
[2021-08-05] MEDS: FUROSEMIDE 40MG/4ML VIAL IVP SCH (08:39)
[2021-08-05] MEDS: PANTOPRAZOLE SODIUM 40 MG/VIAL IV SCH ×2 (08:39→16:51)
[2021-08-05] MEDS: FERROUS SULFATE 300MG/5ML UDC PO SCH (08:39)
[2021-08-05] MEDS: ENOXAPARIN 80MG/0.8ML SYR SUBCUT SCH (11:27)
[2021-08-05] MEDS: DILTIAZEM HCL 60MG TABLET PO SCH ×2 (14:23→21:02)
[2021-08-05 16:36] LABS: HEMATOCRIT. 29.7 % (42.0-52.0); HEMOGLOBIN. 9.1 g/dL (14.0-18.0); MEAN CORPUSCULAR VOLUME 104.8 fL (80.0-94.0); MEAN PLATELET VOLUME 9.1 fl (7.4-10.4); PLATELET 121 x1000/uL (130-400); RED BLOOD CELL COUNT 2.83 mill/uL (4.7-6.1); RED CELL DISTRIBUTION WIDTH 17.3 % (11.6-14.6)
[2021-08-05 16:42] LABS: CHLORIDE 106 mEq/L (98-107)
[2021-08-05 17:24] LABS: PLATELET ESTIMATE SLIGHTLY DECREASED
[2021-08-05] MEDS ORDERED: WARFARIN SODIUM 5MG TABLET PO NR (18:00)
[2021-08-05] MEDS ORDERED: SODIUM POLYSTYRENE SULFONATE 15 G/60 ML BOT PO NR (19:00)
[2021-08-05] MEDS: ATORVASTATIN CALCIUM 10MG TABLET PO SCH (21:02)
[2021-08-06] VITALS (10 sets, daily range): BP systolic 97–145; BP diastolic 42–66
[2021-08-06] MEDS: IPRATROPIUM BROMIDE (0.02%) 0.5MG/2.5ML NEB HHN SCH ×4 (02:02→20:43)
[2021-08-06] MEDS: DILTIAZEM HCL 60MG TABLET PO SCH ×3 (05:13→21:38)
[2021-08-06 06:19] LABS: INR 1.3; PROTHROMBIN TIME 13.4 sec (9.6-11.0)
[2021-08-06] MEDS: ENOXAPARIN 80MG/0.8ML SYR SUBCUT SCH (09:02)
[2021-08-06] MEDS: FUROSEMIDE 40MG/4ML VIAL IVP SCH (09:02)
[2021-08-06] MEDS: PANTOPRAZOLE SODIUM 40 MG/VIAL IV SCH ×2 (09:02→18:29)
[2021-08-06] MEDS: FERROUS SULFATE 300MG/5ML UDC PO SCH (09:02)
[2021-08-06 10:51] LABS: BG BASE EXCESS 8.9 mmol/L (-2.0-2.0); BG CARBOXYHEMOGLOBIN 1.1 % (0.5-1.5); BG DEOXYHEMOGLOBIN 21.4 % (0.0-5.0); BG FRACTION INSPIRED OXYGEN 36; BG METHEMOGLOBIN 0.2 % (0.0-1.5); BG OXYGEN SATURATION 78.3 % (92.0-98.5); BG OXYHEMOGLOBIN 77.3 % (94.0-97.0); BG PCO2 65.8 mmHg (35.0-45.0); BG PH 7.356 (7.350-7.450); BG PO2 45.2 mmHg (75.0-100.0); BG SAMPLE SITE RIGHT RADIAL; BG TOTAL HEMOGLOBIN 9.7 g/dL (12.0-18.0); BG VENT MODE NASAL CANNULA
[2021-08-06 11:23] LABS: HEMATOCRIT. 27.6 % (42.0-52.0); HEMOGLOBIN. 8.5 g/dL (14.0-18.0); MEAN CORPUSCULAR HEMOGLOBIN 31.7 pg (28.0-32.0); MEAN CORPUSCULAR VOLUME 102.6 fL (80.0-94.0); MEAN PLATELET VOLUME 9.2 fl (7.4-10.4); PLATELET 118 x1000/uL (130-400); RED BLOOD CELL COUNT 2.69 mill/uL (4.7-6.1)
[2021-08-06 11:27] LABS: CHLORIDE 103 mEq/L (98-107)
[2021-08-06 17:54] LABS: PLATELET ESTIMATE DECREASED
[2021-08-06] MEDS ORDERED: WARFARIN SODIUM 7.5MG TABLET PO NR (18:00)
[2021-08-06] MEDS: ATORVASTATIN CALCIUM 10MG TABLET PO SCH (21:38)
[2021-08-07] VITALS (17 sets, daily range): BP systolic 96–139; BP diastolic 47–75
[2021-08-07] MEDS: IPRATROPIUM BROMIDE (0.02%) 0.5MG/2.5ML NEB HHN SCH ×4 (01:10→20:57)
[2021-08-07 05:22] LABS: HEMATOCRIT. 26.3 % (42.0-52.0); HEMOGLOBIN. 8.2 g/dL (14.0-18.0); MEAN CORPUSCULAR HEMOGLOBIN 31.6 pg (28.0-32.0); MEAN CORPUSCULAR VOLUME 101.3 fL (80.0-94.0); MEAN PLATELET VOLUME 9.1 fl (7.4-10.4); PLATELET 107 x1000/uL (130-400); RED CELL DISTRIBUTION WIDTH 16.8 % (11.6-14.6)
[2021-08-07] MEDS: DILTIAZEM HCL 60MG TABLET PO SCH (05:54)
[2021-08-07 06:42] LABS: INR 1.5
[2021-08-07] MEDS: FERROUS SULFATE 300MG/5ML UDC PO SCH (09:25)
[2021-08-07] MEDS: PANTOPRAZOLE SODIUM 40 MG/VIAL IV SCH ×2 (09:25→17:47)
[2021-08-07] MEDS: FUROSEMIDE 40MG/4ML VIAL IVP SCH (09:25)
[2021-08-07] MEDS: ENOXAPARIN 80MG/0.8ML SYR SUBCUT SCH (09:26)
[2021-08-07 09:38] LABS: PLATELET ESTIMATE DECREASED
[2021-08-07] MEDS: DILTIAZEM HCL 30MG TABLET PO SCH ×2 (12:06→17:47)
[2021-08-07 14:55] LABS: BG BASE EXCESS 8.9 mmol/L (-2.0-2.0); BG CARBOXYHEMOGLOBIN 0.8 % (0.5-1.5); BG DEOXYHEMOGLOBIN 15.9 % (0.0-5.0); BG FRACTION INSPIRED OXYGEN 44; BG HCO3 ACT 35.3 mmol/L (22.0-26.0); BG METHEMOGLOBIN 0.4 % (0.0-1.5); BG OXYGEN SATURATION 83.9 % (92.0-98.5); BG OXYHEMOGLOBIN 82.9 % (94.0-97.0); BG PCO2 60.4 mmHg (35.0-45.0); BG PH 7.384 (7.350-7.450); BG PO2 50.3 mmHg (75.0-100.0); BG SAMPLE SITE LEFT BRACHIAL; BG TOTAL HEMOGLOBIN 8.7 g/dL (12.0-18.0); BG VENT MODE NASAL CANNULA
[2021-08-07] MEDS ORDERED: WARFARIN SODIUM 7.5MG TABLET PO NR (18:00)
[2021-08-08] VITALS (18 sets, daily range): BP systolic 86–158; BP diastolic 38–79
[2021-08-08] MEDS: ATORVASTATIN CALCIUM 10MG TABLET PO SCH ×2 (00:37→21:55)
[2021-08-08] MEDS: DILTIAZEM HCL 30MG TABLET PO SCH ×4 (00:38→17:55)
[2021-08-08] MEDS: IPRATROPIUM BROMIDE (0.02%) 0.5MG/2.5ML NEB HHN SCH ×4 (00:50→12:44)
[2021-08-08 09:57] LABS: HEMATOCRIT. 25.9 % (42.0-52.0); HEMOGLOBIN. 8.1 g/dL (14.0-18.0); MEAN CORPUSCULAR VOLUME 102.5 fL (80.0-94.0); RED BLOOD CELL COUNT 2.52 mill/uL (4.7-6.1); RED CELL DISTRIBUTION WIDTH 16.7 % (11.6-14.6)
[2021-08-08 10:01] LABS: PROTHROMBIN TIME 20.4 sec (9.6-11.0)
[2021-08-08] MEDS: PANTOPRAZOLE SODIUM 40 MG/VIAL IV SCH ×2 (10:06→17:55)
[2021-08-08] MEDS: FUROSEMIDE 40MG/4ML VIAL IVP SCH (10:06)
[2021-08-08] MEDS: FERROUS SULFATE 300MG/5ML UDC PO SCH (10:07)
[2021-08-08] MEDS: ENOXAPARIN 80MG/0.8ML SYR SUBCUT SCH (10:07)
[2021-08-08 10:31] LABS: PLATELET 112 x1000/uL (130-400)
[2021-08-08 10:36] LABS: PLATELET ESTIMATE SLIGHTLY DECREASED
[2021-08-08 11:09] LABS: BG BASE EXCESS 8.9 mmol/L (-2.0-2.0); BG CARBOXYHEMOGLOBIN 1.2 % (0.5-1.5); BG DEOXYHEMOGLOBIN 4.3 % (0.0-5.0); BG FRACTION INSPIRED OXYGEN 40; BG HCO3 ACT 34.8 mmol/L (22.0-26.0); BG METHEMOGLOBIN 0.3 % (0.0-1.5); BG OXYGEN SATURATION 95.6 % (92.0-98.5); BG OXYHEMOGLOBIN 94.2 % (94.0-97.0); BG PH 7.411 (7.350-7.450); BG PO2 81.6 mmHg (75.0-100.0); BG SAMPLE SITE RIGHT RADIAL; BG TOTAL HEMOGLOBIN 9.1 g/dL (12.0-18.0); BG VENT MODE MASK - BIPAP
[2021-08-08] MEDS ORDERED: WARFARIN SODIUM 1MG TABLET PO NR (18:00)
[2021-08-09] VITALS (8 sets, daily range): BP systolic 111–151; BP diastolic 51–82
[2021-08-09] MEDS: DILTIAZEM HCL 30MG TABLET PO SCH ×4 (00:29→17:33)
[2021-08-09 06:00] LABS: CHLORIDE 103 mEq/L (98-107)
[2021-08-09 06:18] LABS: HEMATOCRIT. 27.5 % (42.0-52.0); HEMOGLOBIN. 8.6 g/dL (14.0-18.0); MEAN CORPUSCULAR HEMOGLOBIN 31.2 pg (28.0-32.0); MEAN CORPUSCULAR VOLUME 99.9 fL (80.0-94.0); MEAN PLATELET VOLUME 9.3 fl (7.4-10.4); PLATELET 112 x1000/uL (130-400); RED BLOOD CELL COUNT 2.75 mill/uL (4.7-6.1)
[2021-08-09 07:05] LABS: INR 2.8; PROTHROMBIN TIME 27.3 sec (9.6-11.0)
[2021-08-09] MEDS: PANTOPRAZOLE SODIUM 40 MG/VIAL IV SCH ×2 (08:41→17:33)
[2021-08-09] MEDS: FERROUS SULFATE 300MG/5ML UDC PO SCH (08:41)
[2021-08-09] MEDS: FUROSEMIDE 40MG/4ML VIAL IVP SCH (08:41)
[2021-08-09] MEDS: IPRATROPIUM BROMIDE (0.02%) 0.5MG/2.5ML NEB HHN SCH ×3 (09:45→20:50)
[2021-08-09 11:21] LABS: PLATELET ESTIMATE DECREASED
[2021-08-09] MEDS: ATORVASTATIN CALCIUM 10MG TABLET PO SCH (21:29)
[2021-08-10] VITALS (9 sets, daily range): BP systolic 115–152; BP diastolic 52–76
[2021-08-10] MEDS: DILTIAZEM HCL 30MG TABLET PO SCH ×4 (00:02→17:12)
[2021-08-10] MEDS: IPRATROPIUM BROMIDE (0.02%) 0.5MG/2.5ML NEB HHN SCH ×4 (01:37→20:51)
[2021-08-10 06:48] LABS: INR 2.7; PROTHROMBIN TIME 26.4 sec (9.6-11.0)
[2021-08-10 06:55] LABS: BASOPHILS % 0.9 % (0.0-2.0); EOSINOPHILS % 5.7 % (0.0-5.0); HEMOGLOBIN. 8.3 g/dL (14.0-18.0); LYMPHOCYTES % 8.9 % (20.0-50.0); MEAN CORPUSCULAR HEMOGLOBIN 31.8 pg (28.0-32.0); MEAN CORPUSCULAR VOLUME 99.8 fL (80.0-94.0); MEAN PLATELET VOLUME 9.5 fl (7.4-10.4); MONOCYTES % 14.6 % (2.0-8.0); NEUTROPHILS % 69.9 % (40.0-76.0); PLATELET 114 x1000/uL (130-400); RED CELL DISTRIBUTION WIDTH 16.3 % (11.6-14.6)
[2021-08-10] MEDS: PANTOPRAZOLE SODIUM 40 MG/VIAL IV SCH ×2 (09:46→17:00)
[2021-08-10] MEDS: FUROSEMIDE 40MG/4ML VIAL IVP SCH (09:46)
[2021-08-10] MEDS: FERROUS SULFATE 300MG/5ML UDC PO SCH (09:46)
[2021-08-10] MEDS ORDERED: WARFARIN SODIUM 2.5MG TABLET PO SCH (18:00)
[2021-08-10] MEDS: ATORVASTATIN CALCIUM 10MG TABLET PO SCH (20:12)
[2021-08-11] VITALS (14 sets, daily range): BP systolic 116–155; BP diastolic 40–97
[2021-08-11] MEDS: DILTIAZEM HCL 30MG TABLET PO SCH ×5 (00:33→23:32)
[2021-08-11] MEDS: IPRATROPIUM BROMIDE (0.02%) 0.5MG/2.5ML NEB HHN SCH ×3 (02:39→14:39)
[2021-08-11 07:22] LABS: BASOPHILS % 1.4 % (0.0-2.0); EOSINOPHILS % 5.4 % (0.0-5.0); HEMATOCRIT. 24.4 % (42.0-52.0); HEMOGLOBIN. 7.9 g/dL (14.0-18.0); LYMPHOCYTES % 8.1 % (20.0-50.0); MEAN CORPUSCULAR HEMOGLOBIN 31.8 pg (28.0-32.0); MEAN PLATELET VOLUME 10.1 fl (7.4-10.4); NEUTROPHILS % 72.1 % (40.0-76.0); PLATELET 107 x1000/uL (130-400); RED BLOOD CELL COUNT 2.49 mill/uL (4.7-6.1); RED CELL DISTRIBUTION WIDTH 16.1 % (11.6-14.6)
[2021-08-11 07:27] LABS: INR 2.4
[2021-08-11 07:52] LABS: CHLORIDE 103 mEq/L (98-107)
[2021-08-11] MEDS: FERROUS SULFATE 300MG/5ML UDC PO SCH (08:35)
[2021-08-11] MEDS: PANTOPRAZOLE 40MG DR TABLET PO SCH ×2 (08:37→18:15)
[2021-08-11] MEDS: FUROSEMIDE 40MG TABLET PO SCH (08:37)
[2021-08-11] MEDS: WARFARIN SODIUM 5MG TABLET PO SCH (18:16)
[2021-08-11] MEDS: ATORVASTATIN CALCIUM 10MG TABLET PO SCH (21:16)
[2021-08-12] VITALS: BP 118/56
[2021-08-12 04:00] VITALS: BP 111/47
[2021-08-12] MEDS: DILTIAZEM HCL 30MG TABLET PO SCH ×3 (05:48→18:00)
[2021-08-12 06:50] LABS: EOSINOPHILS % 4.6 % (0.0-5.0); HEMATOCRIT. 25.4 % (42.0-52.0); HEMOGLOBIN. 7.7 g/dL (14.0-18.0); LYMPHOCYTES % 7.5 % (20.0-50.0); MEAN CORPUSCULAR VOLUME 102.2 fL (80.0-94.0); MEAN PLATELET VOLUME 10.2 fl (7.4-10.4); MONOCYTES % 11.5 % (2.0-8.0); NEUTROPHILS % 75.4 % (40.0-76.0); PLATELET 89 x1000/uL (130-400); RED BLOOD CELL COUNT 2.48 mill/uL (4.7-6.1); RED CELL DISTRIBUTION WIDTH 16.4 % (11.6-14.6)
[2021-08-12 07:00] LABS: INR 2.2; PROTHROMBIN TIME 22.3 sec (9.6-11.0)
[2021-08-12 08:00] VITALS: BP 130/57
[2021-08-12] MEDS: IPRATROPIUM BROMIDE (0.02%) 0.5MG/2.5ML NEB HHN SCH ×3 (08:25→21:25)
[2021-08-12] MEDS: PANTOPRAZOLE 40MG DR TABLET PO SCH ×2 (09:00→17:00)
[2021-08-12] MEDS: FUROSEMIDE 40MG TABLET PO SCH (09:00)
[2021-08-12] MEDS: FERROUS SULFATE 300MG/5ML UDC PO SCH (09:00)
[2021-08-12 12:00] VITALS: BP 128/64
[2021-08-12] MEDS ORDERED: SODIUM POLYSTYRENE SULFONATE 15 G/60 ML BOT PO SCH (15:00)
[2021-08-12 16:00] VITALS: BP 120/62
[2021-08-12] MEDS: WARFARIN SODIUM 5MG TABLET PO SCH (18:00)
[2021-08-12 20:00] VITALS: BP 125/74
[2021-08-12] MEDS: ATORVASTATIN CALCIUM 10MG TABLET PO SCH (21:00)
[2021-08-13] VITALS (15 sets, daily range): BP systolic 109–154; BP diastolic 44–78
[2021-08-13] MEDS: DILTIAZEM HCL 30MG TABLET PO SCH ×4 (00:12→18:31)
[2021-08-13] MEDS: IPRATROPIUM BROMIDE (0.02%) 0.5MG/2.5ML NEB HHN SCH ×4 (02:25→21:50)
[2021-08-13 06:39] LABS: HEMATOCRIT. 22.8 % (42.0-52.0); HEMOGLOBIN. 7.4 g/dL (14.0-18.0); MEAN CORPUSCULAR HEMOGLOBIN 31.6 pg (28.0-32.0); MEAN CORPUSCULAR VOLUME 97.7 fL (80.0-94.0); MEAN PLATELET VOLUME 9.8 fl (7.4-10.4); PLATELET 112 x1000/uL (130-400); RED BLOOD CELL COUNT 2.34 mill/uL (4.7-6.1); RED CELL DISTRIBUTION WIDTH 15.8 % (11.6-14.6)
[2021-08-13] MEDS: PANTOPRAZOLE 40MG DR TABLET PO SCH ×2 (09:24→18:31)
[2021-08-13] MEDS: FERROUS SULFATE 300MG/5ML UDC PO SCH (09:24)
[2021-08-13] MEDS: FUROSEMIDE 40MG TABLET PO SCH (09:24)
[2021-08-13 13:55] LABS: HEMATOCRIT 25.7 % (42.0-52.0); HEMOGLOBIN 8.1 g/dL (14.0-18.0)
[2021-08-13 15:42] LABS: INR 3.1; PROTHROMBIN TIME 30.4 sec (9.6-11.0)
[2021-08-13] MEDS: WARFARIN SODIUM 5MG TABLET PO SCH (18:31)
[2021-08-13 20:13] LABS: PLATELET ESTIMATE DECREASED
[2021-08-13] MEDS: ATORVASTATIN CALCIUM 10MG TABLET PO SCH (21:34)
[2021-08-14] MEDS ORDERED: CLONIDINE 0.1MG TABLET PO PRN (00:30)
[2021-08-14] MEDS: ACETAMINOPHEN 325MG TABLET PO PRN ×2 (01:04→20:10)
[2021-08-14] MEDS: DILTIAZEM HCL 30MG TABLET PO SCH ×4 (01:04→17:37)
[2021-08-14] MEDS: IPRATROPIUM BROMIDE (0.02%) 0.5MG/2.5ML NEB HHN SCH ×4 (03:00→20:09)
[2021-08-14 04:00] VITALS: BP 120/62
[2021-08-14 06:22] LABS: HEMATOCRIT. 24.9 % (42.0-52.0); HEMOGLOBIN. 8.1 g/dL (14.0-18.0); MEAN CORPUSCULAR HEMOGLOBIN 31.3 pg (28.0-32.0); MEAN CORPUSCULAR VOLUME 96.3 fL (80.0-94.0); PLATELET 113 x1000/uL (130-400); RED BLOOD CELL COUNT 2.58 mill/uL (4.7-6.1); RED CELL DISTRIBUTION WIDTH 16.4 % (11.6-14.6)
[2021-08-14 06:44] LABS: INR 2.6; PROTHROMBIN TIME 26.1 sec (9.6-11.0)
[2021-08-14 08:00] VITALS: BP 145/74
[2021-08-14] MEDS: PANTOPRAZOLE 40MG DR TABLET PO SCH ×2 (08:20→17:37)
[2021-08-14] MEDS: FERROUS SULFATE 300MG/5ML UDC PO SCH (08:20)
[2021-08-14] MEDS: FUROSEMIDE 40MG TABLET PO SCH (08:20)
[2021-08-14 12:00] VITALS: BP 126/70
[2021-08-14 16:00] VITALS: BP 117/55
[2021-08-14 17:29] LABS: PLATELET ESTIMATE DECREASED
[2021-08-14] MEDS: WARFARIN SODIUM 5MG TABLET PO SCH (17:37)
[2021-08-14] MEDS: ATORVASTATIN CALCIUM 10MG TABLET PO SCH (20:10)
[2021-08-15] VITALS: BP 103/59
[2021-08-15] MEDS: IPRATROPIUM BROMIDE (0.02%) 0.5MG/2.5ML NEB HHN SCH ×3 (01:40→12:48)
[2021-08-15 04:00] VITALS: BP 132/46
[2021-08-15] MEDS: ACETAMINOPHEN 325MG TABLET PO PRN ×2 (04:55→11:33)
[2021-08-15] MEDS: DILTIAZEM HCL 30MG TABLET PO SCH ×4 (05:00→17:11)
[2021-08-15 06:44] LABS: HEMATOCRIT. 25.8 % (42.0-52.0); HEMOGLOBIN. 8.4 g/dL (14.0-18.0); MEAN CORPUSCULAR HEMOGLOBIN 30.9 pg (28.0-32.0); MEAN CORPUSCULAR VOLUME 94.9 fL (80.0-94.0); MEAN PLATELET VOLUME 10.1 fl (7.4-10.4); PLATELET 123 x1000/uL (130-400); RED BLOOD CELL COUNT 2.72 mill/uL (4.7-6.1); RED CELL DISTRIBUTION WIDTH 16.2 % (11.6-14.6)
[2021-08-15 07:28] LABS: INR 3.2; PROTHROMBIN TIME 31.5 sec (9.6-11.0)
[2021-08-15 08:00] VITALS: BP 104/56
[2021-08-15] MEDS: FUROSEMIDE 40MG TABLET PO SCH (08:00)
[2021-08-15] MEDS: FERROUS SULFATE 300MG/5ML UDC PO SCH (08:00)
[2021-08-15] MEDS: PANTOPRAZOLE 40MG DR TABLET PO SCH ×2 (08:00→17:11)
[2021-08-15 12:00] VITALS: BP 99/53
[2021-08-15 12:08] LABS: PLATELET ESTIMATE SLIGHTLY DECREASED
[2021-08-15 12:13] VITALS: BP 104/56
[2021-08-15 16:00] VITALS: BP 105/67
[2021-08-15] MEDS: WARFARIN SODIUM 5MG TABLET PO SCH (17:11)
[2021-08-16] MEDS ORDERED: WARF-53 PO (15:53)
== END 2021-08-15 18:32 | DRG 291 ==
LOC: ER 19:04 → 5EST 21:11 → ENRESERV 08-01 07:19
PROVIDERS: ADMIT Internal Medicine; ATTEND Internal Medicine
PROC: 5A09357 Assistance with Respiratory Ventilation, Less than 24 Consecutive Hours, Continuous Positive Airway Pressure (ICD-10-PCS; 2021-07-31)
PROC: 30233N1 Transfusion of Nonautologous Red Blood Cells into Peripheral Vein, Percutaneous Approach (ICD-10-PCS; principal; 2021-08-03)
PROC: 5A09557 Assistance with Respiratory Ventilation, Greater than 96 Consecutive Hours, Continuous Positive Airway Pressure (ICD-10-PCS; 2021-08-05)
DX: I13.0 Hypertensive heart and chronic kidney disease with heart failure and stage 1 through stage 4 chronic kidney disease, or unspecified chronic kidney disease (principal); J96.22 Acute and chronic respiratory failure with hypercapnia; J96.21 Acute and chronic respiratory failure with hypoxia; I50.23 Acute on chronic systolic (congestive) heart failure; N17.0 Acute kidney failure with tubular necrosis; J44.1 Chronic obstructive pulmonary disease with (acute) exacerbation; D61.818 Other pancytopenia; I48.20 Chronic atrial fibrillation, unspecified; I48.92 Unspecified atrial flutter; D68.9 Coagulation defect, unspecified; J84.9 Interstitial pulmonary disease, unspecified; E87.5 Hyperkalemia; F17.210 Nicotine dependence, cigarettes, uncomplicated; I25.10 Atherosclerotic heart disease of native coronary artery without angina pectoris; I27.20 Pulmonary hypertension, unspecified; N18.9 Chronic kidney disease, unspecified; D63.8 Anemia in other chronic diseases classified elsewhere; D53.9 Nutritional anemia, unspecified; E86.0 Dehydration; M19.91 Primary osteoarthritis, unspecified site; G89.29 Other chronic pain; M54.50 Low back pain, unspecified; K43.9 Ventral hernia without obstruction or gangrene; I45.10 Unspecified right bundle-branch block; I42.9 Cardiomyopathy, unspecified; G47.33 Obstructive sleep apnea (adult) (pediatric); K57.30 Diverticulosis of large intestine without perforation or abscess without bleeding; L50.9 Urticaria, unspecified; G40.909 Epilepsy, unspecified, not intractable, without status epilepticus; K21.9 Gastro-esophageal reflux disease without esophagitis; E78.5 Hyperlipidemia, unspecified; I34.2 Nonrheumatic mitral (valve) stenosis; Z95.0 Presence of cardiac pacemaker; Z99.81 Dependence on supplemental oxygen; Z95.2 Presence of prosthetic heart valve; Z88.0 Allergy status to penicillin; Z79.899 Other long term (current) drug therapy; Z79.01 Long term (current) use of anticoagulants; Z82.49 Family history of ischemic heart disease and other diseases of the circulatory system; Z86.73 Personal history of transient ischemic attack (TIA), and cerebral infarction without residual deficits; Z86.718 Personal history of other venous thrombosis and embolism; I48.0 Paroxysmal atrial fibrillation; K29.70 Gastritis, unspecified, without bleeding
CPT/HCPCS: 36415; 36600; 71045; 74018; 80048; 80053; 80076; 82270; 82375; 82607; 82728; 82746; 82805; 82962; 83540; 83550; 83880; 84132; 84484; 85014; 85018; 85025; 85044; 86850; 86900; 86920; 93005; 93970; 94640; 94660; 99291; C1893; C9113; J0610; J1650; J1815; J1940; J3490; J7070; P9016

== ENCOUNTER 2021-08-15 19:32 | Inpatient (IN) | payer MEDICARE, MEDICAID ==
[~2021-08-15] VITALS: Ht 177.8 cm; Wt 88.5 kg
[2021-08-15 20:23] LABS: HEMATOCRIT. 27.8 % (42.0-52.0); HEMOGLOBIN. 8.8 g/dL (14.0-18.0); MEAN CORPUSCULAR HEMOGLOBIN 30.4 pg (28.0-32.0); MEAN CORPUSCULAR VOLUME 96.7 fL (80.0-94.0); MEAN PLATELET VOLUME 10.3 fl (7.4-10.4); PLATELET 148 x1000/uL (130-400); RED BLOOD CELL COUNT 2.88 mill/uL (4.7-6.1); RED CELL DISTRIBUTION WIDTH 16.8 % (11.6-14.6)
[2021-08-15 20:25] LABS: CHLORIDE 95 mEq/L (98-107)
[2021-08-15 20:38] LABS: BG BASE EXCESS 7.3 mmol/L (-2.0-2.0); BG CARBOXYHEMOGLOBIN 0.6 % (0.5-1.5); BG DEOXYHEMOGLOBIN 0.4 % (0.0-5.0); BG FRACTION INSPIRED OXYGEN 100; BG HCO3 ACT 32.5 mmol/L (22.0-26.0); BG METHEMOGLOBIN 0.4 % (0.0-1.5); BG OXYGEN SATURATION 99.6 % (92.0-98.5); BG OXYHEMOGLOBIN 98.6 % (94.0-97.0); BG PCO2 49.7 mmHg (35.0-45.0); BG PH 7.434 (7.350-7.450); BG PO2 239.9 mmHg (75.0-100.0); BG SAMPLE SITE RIGHT RADIAL; BG VENT MODE MASK - BIPAP
[2021-08-15 20:53] LABS: PLATELET ESTIMATE NORMAL
[2021-08-15] MEDS ORDERED: ACETAMINOPHEN 650MG SUPP PR ONE (21:30)
[2021-08-15 22:52] LABS: CLARITY URINE TURBID (CLEAR); COLOR URINE DARK YELLOW (YELLOW); KETONES URINE TRACE (NEGATIVE); LEUKOCYTE ESTERASE URINE 1+ (NEGATIVE); NITRITE URINE NEGATIVE (NEGATIVE); OCCULT BLOOD URINE 3+ (NEGATIVE); PROTEIN URINE 2+ (NEGATIVE); SPECIFIC GRAVITY URINE 1.023 (1.005-1.030)
[2021-08-15] MEDS ORDERED: CEFTRIAXONE 1 G PREMIX 50 ML IV ONE (23:30)
[2021-08-16] MEDS: ACETAMINOPHEN 650MG SUPP PR SCH ×4 (04:26→17:33)
[2021-08-16] MEDS ORDERED: LEVOFLOXACIN 750MG PREMIX 150ML IV NR ×2 (12:30→15:30)
[2021-08-16] MEDS ORDERED: SODIUM CHLORIDE 3% FOR INH 15ML VIAL NEB INH SCH (13:00)
[2021-08-16 14:00] VITALS: BP 146/79
[2021-08-16 14:15] VITALS: BP 146/79
[2021-08-16] MEDS ORDERED: PNEUMOCOCCAL 23-VAL P-SAC VAC 0.5 ML IM ONE (14:30)
[2021-08-16] MEDS ORDERED: INFLUENZA VACCINE 05/PF 0.5 ML SYRINGE IM ONE (14:30)
[2021-08-16] MEDS ORDERED: LACTULOSE 20G/30ML UDC PO PRN (15:15)
[2021-08-16] MEDS ORDERED: IPRATROPIUM BROMIDE (0.02%) 0.5MG/2.5ML NEB HHN SCH (15:15)
[2021-08-16] MEDS ORDERED: WARF-53 PO (15:53)
[2021-08-16 16:00] VITALS: BP 154/107
[2021-08-16] MEDS ORDERED: LEVOFLOXACIN 500MG TABLET PO SCH (16:00)
[2021-08-16] MEDS: IPRATROPIUM/ALBUTEROL 0.5-3(2.5)MG/3ML NEB HHN SCH ×2 (16:26→20:11)
[2021-08-16 18:00] VITALS: BP 149/81
[2021-08-16] MEDS ORDERED: WARFARIN SODIUM 5MG TABLET PO SCH (18:00)
[2021-08-16 18:11] LABS: PROTHROMBIN TIME 57.6 sec (9.6-11.0)
[2021-08-16 18:19] LABS: INR 6.2
[2021-08-16 20:00] VITALS: BP 149/72
[2021-08-16] MEDS ORDERED: VANCOMYCIN 2,000 MG in DEXT 5% WATER 500 ML IV NR (20:00)
[2021-08-16] MEDS: DILTIAZEM HCL 30MG TABLET PO SCH (21:47)
[2021-08-16 22:00] VITALS: BP 151/73
[2021-08-17] VITALS (12 sets, daily range): BP systolic 117–142; BP diastolic 58–69
[2021-08-17] MEDS: IPRATROPIUM/ALBUTEROL 0.5-3(2.5)MG/3ML NEB HHN SCH ×3 (00:31→07:50)
[2021-08-17] MEDS: DILTIAZEM HCL 30MG TABLET PO SCH ×3 (05:33→22:16)
[2021-08-17] MEDS: ACETAMINOPHEN 650MG SUPP PR SCH ×3 (06:00→12:00)
[2021-08-17] MEDS: FERROUS SULFATE 325MG TABLET PO SCH (08:31)
[2021-08-17] MEDS ORDERED: LEVOFLOXACIN 500MG TABLET PO SCH (09:00)
[2021-08-17 09:24] LABS: HEMATOCRIT. 24.1 % (42.0-52.0); HEMOGLOBIN. 8.1 g/dL (14.0-18.0); MEAN CORPUSCULAR HEMOGLOBIN 31.1 pg (28.0-32.0); MEAN CORPUSCULAR VOLUME 92.8 fL (80.0-94.0); MEAN PLATELET VOLUME 10.3 fl (7.4-10.4); PLATELET 131 x1000/uL (130-400); RED CELL DISTRIBUTION WIDTH 16.6 % (11.6-14.6)
[2021-08-17 09:40] LABS: PROTHROMBIN TIME 91.6 sec (9.6-11.0)
[2021-08-17 10:00] LABS: INR 10.3
[2021-08-17 13:18] LABS: BG BASE EXCESS 8.5 mmol/L (-2.0-2.0); BG CARBOXYHEMOGLOBIN 0.8 % (0.5-1.5); BG FRACTION INSPIRED OXYGEN 50; BG HCO3 ACT 33.6 mmol/L (22.0-26.0); BG METHEMOGLOBIN 0.2 % (0.0-1.5); BG PCO2 49.8 mmHg (35.0-45.0); BG PH 7.447 (7.350-7.450); BG PO2 100.7 mmHg (75.0-100.0); BG TOTAL HEMOGLOBIN 8.9 g/dL (12.0-18.0); BG VENT MODE MASK - BIPAP
[2021-08-17 13:48] LABS: PROTHROMBIN TIME 91.3 sec (9.6-11.0)
[2021-08-17] MEDS: SODIUM CHLORIDE 0.45% 1,000 ML IV SCH (13:53)
[2021-08-17] MEDS: LEVOFLOXACIN 250MG TABLET PO SCH (13:55)
[2021-08-17 14:23] LABS: INR 10.2
[2021-08-17 15:35] LABS: PLATELET ESTIMATE NORMAL
[2021-08-17] MEDS: IPRATROPIUM BROMIDE (0.02%) 0.5MG/2.5ML NEB HHN SCH (21:00)
[2021-08-18] VITALS (12 sets, daily range): BP systolic 110–128; BP diastolic 57–77
[2021-08-18] MEDS: IPRATROPIUM BROMIDE (0.02%) 0.5MG/2.5ML NEB HHN SCH ×4 (02:34→20:37)
[2021-08-18] MEDS ORDERED: LEVOFLOXACIN 500MG PREMIX 100 ML IV SCH (09:00)
[2021-08-18 09:35] LABS: PROTHROMBIN TIME 91.6 sec (9.6-11.0)
[2021-08-18] MEDS: FERROUS SULFATE 325MG TABLET PO SCH (09:48)
[2021-08-18] MEDS: LEVOFLOXACIN 250MG TABLET PO SCH (09:49)
[2021-08-18 10:15] LABS: INR > 10.0
[2021-08-18] MEDS: SODIUM CHLORIDE 0.45% 1,000 ML IV SCH (11:33)
[2021-08-18] MEDS ORDERED: VANCOMYCIN 750 MG PREMIX 150 ML IV NR (14:00)
[2021-08-18] MEDS: DILTIAZEM HCL 30MG TABLET PO SCH ×2 (15:35→22:20)
[2021-08-18] MEDS: ACETAMINOPHEN 650MG SUPP PR SCH (17:49)
[2021-08-18] MEDS ORDERED: ACETAMINOPHEN 650MG SUPP PR PRN (22:15)
[2021-08-19] VITALS (12 sets, daily range): BP systolic 122–145; BP diastolic 59–70
[2021-08-19] MEDS: SODIUM CHLORIDE 0.45% 1,000 ML IV SCH ×2 (00:59→22:03)
[2021-08-19] MEDS: IPRATROPIUM BROMIDE (0.02%) 0.5MG/2.5ML NEB HHN SCH ×5 (01:43→21:27)
[2021-08-19] MEDS: DILTIAZEM HCL 30MG TABLET PO SCH ×3 (05:45→22:10)
[2021-08-19 09:49] LABS: PROTHROMBIN TIME > 100.0 sec (9.6-11.0)
[2021-08-19 09:54] LABS: INR > 10.0
[2021-08-19] MEDS: FERROUS SULFATE 325MG TABLET PO SCH (10:01)
[2021-08-19] MEDS ORDERED: PHYTONADIONE 10MG/ML AMP SUBCUT NR (10:30)
[2021-08-19] MEDS: LEVOFLOXACIN 250MG TABLET PO SCH (11:15)
[2021-08-19] MEDS ORDERED: PHYTONADIONE 10MG/ML AMP ONE (11:33)
[2021-08-19] MEDS ORDERED: VANCOMYCIN 1 G PREMIX 200 ML IV SCH (18:00)
[2021-08-19] MEDS: CEFAZOLIN 2,000 MG in DEXT 5% WATER 100 ML IV SCH (18:29)
[2021-08-20] VITALS (12 sets, daily range): BP systolic 110–154; BP diastolic 46–73
[2021-08-20] MEDS: IPRATROPIUM BROMIDE (0.02%) 0.5MG/2.5ML NEB HHN SCH ×4 (02:43→21:27)
[2021-08-20] MEDS: ACETAMINOPHEN 325MG TABLET PO PRN (04:00)
[2021-08-20] MEDS: CEFAZOLIN 2,000 MG in DEXT 5% WATER 100 ML IV SCH ×2 (05:28→18:16)
[2021-08-20] MEDS: DILTIAZEM HCL 30MG TABLET PO SCH ×3 (05:29→22:03)
[2021-08-20 07:19] LABS: HEMOGLOBIN. 7.4 g/dL (14.0-18.0); MEAN CORPUSCULAR HEMOGLOBIN 30.2 pg (28.0-32.0); MEAN CORPUSCULAR VOLUME 90.1 fL (80.0-94.0); MEAN PLATELET VOLUME 8.9 fl (7.4-10.4); PLATELET 196 x1000/uL (130-400); RED BLOOD CELL COUNT 2.44 mill/uL (4.7-6.1); RED CELL DISTRIBUTION WIDTH 17.1 % (11.6-14.6)
[2021-08-20 07:36] LABS: INR 2.2
[2021-08-20 08:12] LABS: PHOSPHORUS 2.4 mg/dL (2.5-4.9)
[2021-08-20] MEDS: FERROUS SULFATE 325MG TABLET PO SCH (08:37)
[2021-08-20] MEDS: LEVOFLOXACIN 250MG TABLET PO SCH (10:25)
[2021-08-20] MEDS: SODIUM CHLORIDE 0.45% 1,000 ML IV SCH (17:08)
[2021-08-20 17:48] LABS: PLATELET ESTIMATE NORMAL
[2021-08-20] MEDS: LORAZEPAM 2MG/ML CPJ IV PRN (20:35)
[2021-08-21] VITALS (12 sets, daily range): BP systolic 101–145; BP diastolic 42–73
[2021-08-21] MEDS: IPRATROPIUM BROMIDE (0.02%) 0.5MG/2.5ML NEB HHN SCH ×4 (02:10→20:43)
[2021-08-21] MEDS: CEFAZOLIN 2,000 MG in DEXT 5% WATER 100 ML IV SCH ×2 (05:13→18:15)
[2021-08-21] MEDS: DILTIAZEM HCL 30MG TABLET PO SCH ×3 (05:14→21:18)
[2021-08-21 06:12] LABS: INR 1.4; PROTHROMBIN TIME 14.8 sec (9.6-11.0)
[2021-08-21 06:26] LABS: HEMATOCRIT. 23.9 % (42.0-52.0); HEMOGLOBIN. 7.7 g/dL (14.0-18.0); MEAN CORPUSCULAR HEMOGLOBIN 30.1 pg (28.0-32.0); MEAN CORPUSCULAR VOLUME 93.9 fL (80.0-94.0); MEAN PLATELET VOLUME 8.9 fl (7.4-10.4); PLATELET 215 x1000/uL (130-400); RED BLOOD CELL COUNT 2.55 mill/uL (4.7-6.1); RED CELL DISTRIBUTION WIDTH 17.2 % (11.6-14.6)
[2021-08-21] MEDS: FERROUS SULFATE 325MG TABLET PO SCH (08:42)
[2021-08-21] MEDS ORDERED: ENOXAPARIN 80MG/0.8ML SYR SUBCUT NR (11:30)
[2021-08-21] MEDS: SODIUM CHLORIDE 0.45% 1,000 ML IV SCH (13:30)
[2021-08-21] MEDS: LORAZEPAM 2MG/ML CPJ IV PRN (14:14)
[2021-08-21 17:48] LABS: PLATELET ESTIMATE NORMAL
[2021-08-21] MEDS: WARFARIN SODIUM 5MG TABLET PO SCH (18:16)
[2021-08-22] VITALS (15 sets, daily range): BP systolic 100–158; BP diastolic 40–76
[2021-08-22] MEDS: IPRATROPIUM BROMIDE (0.02%) 0.5MG/2.5ML NEB HHN SCH ×4 (00:46→20:26)
[2021-08-22] MEDS: CEFAZOLIN 2,000 MG in DEXT 5% WATER 100 ML IV SCH ×2 (05:04→17:56)
[2021-08-22] MEDS: DILTIAZEM HCL 30MG TABLET PO SCH ×3 (05:05→21:56)
[2021-08-22] MEDS: FERROUS SULFATE 325MG TABLET PO SCH (08:00)
[2021-08-22 08:13] LABS: HEMATOCRIT. 22.3 % (42.0-52.0); HEMOGLOBIN. 7.3 g/dL (14.0-18.0); MEAN CORPUSCULAR HEMOGLOBIN 29.9 pg (28.0-32.0); MEAN CORPUSCULAR VOLUME 91.4 fL (80.0-94.0); MEAN PLATELET VOLUME 8.2 fl (7.4-10.4); PLATELET 243 x1000/uL (130-400); RED BLOOD CELL COUNT 2.44 mill/uL (4.7-6.1); RED CELL DISTRIBUTION WIDTH 17.1 % (11.6-14.6)
[2021-08-22 08:29] LABS: INR 1.4; PROTHROMBIN TIME 14.4 sec (9.6-11.0)
[2021-08-22] MEDS: ENOXAPARIN 80MG/0.8ML SYR SUBCUT SCH (09:00)
[2021-08-22] MEDS: SODIUM CHLORIDE 0.45% 1,000 ML IV SCH (11:30)
[2021-08-22 12:16] LABS: HEMATOCRIT 21.7 % (42.0-52.0)
[2021-08-22 17:53] LABS: PLATELET ESTIMATE NORMAL
[2021-08-22] MEDS: WARFARIN SODIUM 5MG TABLET PO SCH ×2 (17:57→18:00)
[2021-08-22] MEDS: ACETAMINOPHEN 325MG TABLET PO PRN (22:23)
[2021-08-23] VITALS (12 sets, daily range): BP systolic 103–127; BP diastolic 50–67
[2021-08-23] MEDS: IPRATROPIUM BROMIDE (0.02%) 0.5MG/2.5ML NEB HHN SCH ×2 (04:45→08:40)
[2021-08-23] MEDS: SODIUM CHLORIDE 0.45% 1,000 ML IV SCH (05:45)
[2021-08-23] MEDS: CEFAZOLIN 2,000 MG in DEXT 5% WATER 100 ML IV SCH (06:00)
[2021-08-23] MEDS: DILTIAZEM HCL 30MG TABLET PO SCH ×2 (06:00→13:35)
[2021-08-23 06:46] LABS: INR 1.5; PROTHROMBIN TIME 15.7 sec (9.6-11.0)
[2021-08-23 06:50] LABS: HEMATOCRIT. 22.6 % (42.0-52.0); HEMOGLOBIN. 7.6 g/dL (14.0-18.0); MEAN CORPUSCULAR HEMOGLOBIN 30.5 pg (28.0-32.0); MEAN CORPUSCULAR VOLUME 90.7 fL (80.0-94.0); MEAN PLATELET VOLUME 8.7 fl (7.4-10.4); PLATELET 243 x1000/uL (130-400); RED BLOOD CELL COUNT 2.49 mill/uL (4.7-6.1); RED CELL DISTRIBUTION WIDTH 16.2 % (11.6-14.6)
[2021-08-23] MEDS: FERROUS SULFATE 325MG TABLET PO SCH (08:27)
[2021-08-23] MEDS: ENOXAPARIN 80MG/0.8ML SYR SUBCUT SCH (08:28)
[2021-08-23 11:53] LABS: PLATELET ESTIMATE NORMAL
== END 2021-08-23 14:20 | DRG 871 ==
LOC: ER 19:32 → 5EST 23:39 → EDBEDREQTM 23:54 → EDBEDREQ 23:54 → ENRESERV 08-16 10:31
PROVIDERS: ADMIT Internal Medicine; ATTEND Internal Medicine
PROC: 5A09557 Assistance with Respiratory Ventilation, Greater than 96 Consecutive Hours, Continuous Positive Airway Pressure (ICD-10-PCS; 2021-08-15)
PROC: 30233N1 Transfusion of Nonautologous Red Blood Cells into Peripheral Vein, Percutaneous Approach (ICD-10-PCS; principal; 2021-08-22)
DX: A41.01 Sepsis due to Methicillin susceptible Staphylococcus aureus (principal); J18.9 Pneumonia, unspecified organism; J96.22 Acute and chronic respiratory failure with hypercapnia; J96.21 Acute and chronic respiratory failure with hypoxia; I50.43 Acute on chronic combined systolic (congestive) and diastolic (congestive) heart failure; I13.0 Hypertensive heart and chronic kidney disease with heart failure and stage 1 through stage 4 chronic kidney disease, or unspecified chronic kidney disease; I48.92 Unspecified atrial flutter; J44.0 Chronic obstructive pulmonary disease with (acute) lower respiratory infection; N17.9 Acute kidney failure, unspecified; N39.0 Urinary tract infection, site not specified; I48.19 Other persistent atrial fibrillation; J44.1 Chronic obstructive pulmonary disease with (acute) exacerbation; D68.9 Coagulation defect, unspecified; E46 Unspecified protein-calorie malnutrition; D64.9 Anemia, unspecified; E87.5 Hyperkalemia; F03.90 Unspecified dementia, unspecified severity, without behavioral disturbance, psychotic disturbance, mood disturbance, and anxiety; G40.909 Epilepsy, unspecified, not intractable, without status epilepticus; I27.20 Pulmonary hypertension, unspecified; I48.91 Unspecified atrial fibrillation; K21.9 Gastro-esophageal reflux disease without esophagitis; K43.9 Ventral hernia without obstruction or gangrene; N18.9 Chronic kidney disease, unspecified; F32.A Depression, unspecified; G89.29 Other chronic pain; M54.50 Low back pain, unspecified; K29.70 Gastritis, unspecified, without bleeding; E78.5 Hyperlipidemia, unspecified; Z95.0 Presence of cardiac pacemaker; K57.90 Diverticulosis of intestine, part unspecified, without perforation or abscess without bleeding; E66.9 Obesity, unspecified; Z20.822 Contact with and (suspected) exposure to COVID-19; B96.20 Unspecified Escherichia coli [E. coli] as the cause of diseases classified elsewhere; Z86.718 Personal history of other venous thrombosis and embolism; Z95.2 Presence of prosthetic heart valve; Z99.81 Dependence on supplemental oxygen; Z88.0 Allergy status to penicillin; Z88.8 Allergy status to other drugs, medicaments and biological substances; Z79.899 Other long term (current) drug therapy; Z82.49 Family history of ischemic heart disease and other diseases of the circulatory system; Z68.28 Body mass index [BMI] 28.0-28.9, adult; Z86.73 Personal history of transient ischemic attack (TIA), and cerebral infarction without residual deficits; Z79.01 Long term (current) use of anticoagulants
CPT/HCPCS: 36415; 36600; 71045; 80048; 80053; 80202; 81003; 82375; 82805; 83605; 83735; 83880; 84100; 84145; 84484; 85014; 85018; 85025; 85379; 85651; 86140; 86850; 86870; 86900; 86920; 87077; 87186; 87426; 87804; 93005; 93306; 94003; 94640; 94660; 99291; J0690; J0696; J1650; J1956; J2060; J3370; J3430; J7060; P9016